=== PATIENT | female | born 1950 | race African-American/Black ===

== ENCOUNTER → 2018-11-24 | Outpatient (CLI) | payer MEDICARE ==
--- NOTE | 2018-11-24 14:05 | US ---
EXAMINATION TYPE: US venous doppler duplex LE DATE OF EXAM: 11/24/2018 1:43 PM COMPARISON: NONE CLINICAL HISTORY: Bilateral Edema R60.0. Bilateral ankle swelling x many years per patient. SIDE PERFORMED: Bilateral TECHNIQUE: The lower extremity deep venous system is examined utilizing real time linear array sonog rigoberto with graded compression, doppler sonography and color-flow sonography. VESSELS IMAGED: Common Femoral Vein Deep Femoral Vein Greater Saphenous Vein * Femoral Vein Popliteal Vein Small Saphenous Vein * Proximal Calf Veins (* superficial vessels) Grayscale, color doppler, spectral doppler imaging performed of the deep veins of the lower extremiti es. There is normal flow, compressibility, vascular waveforms. Us exam is technically limited by large body habitus at greater than 250lbs and HT 5'4". Right Leg: Negative for DVT as technologist was able to visualize vessels Left Leg: Negative for DVT as technologist was able to visualize vessels Edema channels are noted at bilateral popliteal fossa level and ankle level. IMPRESSION: Limited examination secondary to lower extremity edema and patient body habitus. No gross evidence of deep venous thrombosis within the visualized lower extremities.
== END | disposition home or self-care (01) ==
LOC: RADUSWWP 12:07
PROVIDERS: ATTEND Family Medicine
DX: R60.0 Localized edema (principal)
CPT/HCPCS: 93970

== ENCOUNTER → 2020-01-11 | Outpatient (CLI) | payer MEDICARE ==
--- NOTE | 2020-01-11 17:11 | MR ---
EXAMINATION TYPE: MR brain wo/w con DATE OF EXAM: 01/11/2020 COMPARISON: None HISTORY: Tremors, weakness, memory loss TECHNIQUE: Multiplanar, multisequence images of the brain and brainstem is performed without and with IV contras t, utilizing 9.5 mL intravenous Gadavist . FINDINGS: Diffusion weighted images demonstrate no evidence of a recent infarct or other diffusion abnormality. Moderate nonspecific periventricular and subcortical white matter T2 FLAIR hyperintense foci, which demonstrate no evidence of restricted diffusion or postcontrast enhancement. Mild diffuse volume loss. The ventricular system and cisternal spaces are normal in size and appearan ce. There is no extra-axial fluid collection. Midline structures demonstrate normal morphology. The craniocervical junction appears within normal limits. Post contrast images demonstrate no abnormal enhancement. The dural venous sinuses appear pa tent. The visualized sinuses are clear and the globes are grossly symmetric. IMPRESSION: 1. Mild diffuse volume loss. 2. Moderate nonspecific T2 FLAIR hyperintense foci, likely represent sequela of chronic small vessel disease.
== END | disposition home or self-care (01) ==
LOC: RADMRIMAIN 09:08
PROVIDERS: ATTEND Family Medicine
DX: G93.89 Other specified disorders of brain (principal)
CPT/HCPCS: 70553; A9585

== ENCOUNTER 2021-07-12 01:32 | Inpatient (IN) | payer MEDICARE, OTHER ==
[2021-07-12] MEDS ORDERED: SODIUM CHLORIDE 0.9% 1,000 ML IV STA (01:40)
[2021-07-12] MEDS ORDERED: MORPHINE SULFATE 4 MG/ML SYRINGE IV STA ×2 (01:41→04:58)
[2021-07-12] MEDS ORDERED: ONDANSETRON 4 MG/2 ML VIAL IVP STA (01:41)
[2021-07-12] MEDS ORDERED: hydrALAZINE HCL 20 MG/ML 1 ML VIAL IVP STA (02:25)
[2021-07-12 02:26] LABS: Basophils # (A) 0.1 k/uL (0-0.2); Basophils % (A) 1 %; Eosinophils # (A) 0.2 k/uL (0-0.7); Eosinophils % (A) 1 %; HGB 13.3 gm/dL (11.4-16.0); Lymphocytes # (A) 0.7 k/uL (1.0-4.8); Lymphocytes % (A) 6 %; MCH 29.6 pg (25.0-35.0); MCHC 30.9 g/dL (31.0-37.0); MCV 95.5 fL (80.0-100.0); Mean Platelet Volume 9.1; Monocytes # (A) 0.5 k/uL (0-1.0); Monocytes % (A) 4 %; Neutrophils # (A) 10.8 k/uL (1.3-7.7); Neutrophils % (A) 88 %; Platelet Count 226 k/uL (150-450); RDW 13.4 % (11.5-15.5); WBC 12.3 k/uL (3.8-10.6)
[2021-07-12] MEDS ORDERED: DILTIAZEM 5 MG/ML 5 ML VIAL IVP STA (02:33)
[2021-07-12] MEDS ORDERED: HEPARIN SODIUM 1,000 UN/ML (10ML VL) IV PRN (02:34)
[2021-07-12] MEDS ORDERED: HEPARIN SODIUM 1,000 UN/ML (10ML VL) IV ONE (02:34)
--- NOTE | 2021-07-12 02:35 | ED ---
Abdominal Pain HPI - General Chief Complaint: Abdominal Pain Stated Complaint: Abd Pain Time Seen by Provider: 07/12/21 01:33 Source: EMS, RN notes reviewed Mode of arrival: EMS - History of Present Illness Initial Comments: This is a pleasant 70-year-old female with history of hypertension who states that she developed rather severe abdominal pain about 6 hours prior to arrival. She states this was across her upper abdomen. She states it was sharp in nature, constant, no alleviating or exacerbating factors. Patient states that she skipped dinner prior to onset of this pain because she didn't feel like eating. She denies any chest pain or shortness of breath. This does not radiate. She has never had any symptoms such as this previously. No headache, no fever or chills, no changes in vision or hearing, no sore throat or difficulty with speech, no neck pain, no chest pain or shortness of breath, no nausea or vomiting, no changes in urination or bowel movements, no numbness or tingling, no extremity pain, no skin rashes or lesions. MD Complaint: abdominal pain - Related Data Home Medications Medication Instructions Recorded Confirmed Acetaminophen Tab [Tylenol] 650 mg PO BID@0800,169907/12/21 07/12/21 Acetaminophen [Tylenol 8 Hour] 650 mg PO Q4H PRN 07/12/21 07/12/21 Acetaminophen-Codeine 300-30mg 1 tab PO Q12H PRN 07/12/21 07/12/21 [Tylenol w/codeine #3] Aspirin 325 mg PO DAILY@169907/12/21 07/12/21 Cyanocobalamin [Vitamin B-12] 500 mcg PO DAILY@169907/12/21 07/12/21 Diclofenac Sodium Gel [Voltaren 2 gm TOPICAL QID 07/12/21 07/12/21 Gel] Ergocalciferol [Vitamin D2 (1250 1,250 mcg PO CHICAS@169907/12/21 07/12/21 Mcg = 88193 Iu)] Folic Acid 1 mg PO DAILY@169907/12/21 07/12/21 Furosemide [Lasix] 60 mg PO DAILY@169907/12/21 07/12/21 Magnesium Hydroxide [Milk of 7,200 mg PO DAILY PRN 07/12/21 07/12/21 Magnesia Concentrate] Memantine [Namenda] 10 mg PO BID@0800,1700 07/12/21 07/12/21 Metoprolol Tartrate [Lopressor] 25 mg PO BID@0800,1700 07/12/21 07/12/21 Na Phos,M-B/Na Phos,Di-Ba [Fleet 133 ml RECTAL DAILY PRN 07/12/21 07/12/21 Adult] Potassium Chloride [Klor-Con 10 ER] 10 meq PO DAILY@0800 07/12/21 07/12/21 Pravastatin Sodium [Pravachol] 20 mg PO HS@2100 07/12/21 07/12/21 Ubidecarenone [Co Q-10] 100 mg PO DAILY@1700 07/12/21 07/12/21 bisacodyL [Dulcolax] 10 mg RECTAL DAILY PRN 07/12/21 07/12/21 Allergies Allergy/AdvReac Type Severity Reaction Status Date / Time doxycycline [From Vibramycin] Allergy Unknown Verified 07/12/21 06:25 niacin Allergy Unknown Verified 07/12/21 06:25 simvastatin [From Zocor] Allergy Unknown Verified 07/12/21 06:25 Review of Systems ROS Statement: Those systems with pertinent positive or pertinent negative responses have been documented in the HPI. ROS Other: All systems not noted in ROS Statement are negative. Past Medical History Past Medical History: COPD, Hyperlipidemia, Hypertension History of Any Multi-Drug Resistant Organisms: None Reported Past Surgical History: Hysterectomy Past Psychological History: No Psychological Hx Reported Smoking Status: Former smoker Past Alcohol Use History: None Reported Past Drug Use History: None Reported - Past Family History Mother History Unknown: Yes Additional Family Medical History / Comment(s): Pt was adopted. Father History Unknown: Yes Additional Family Medical History / Comment(s): Pt was adopted. General Exam - General Exam Comments Initial Comments: Obese 70-year-old female in no specific distress at the time I'm seeing her. Vital signs reviewed. Patient appears to be adequately hydrated. Cranial nerves II through XII grossly intact. Does not appear to be ill or toxic. General appearance: alert, in distress Head exam: Present: atraumatic, normocephalic, normal inspection Eye exam: Present: normal appearance, PERRL, EOMI. Absent: scleral icterus, conjunctival injection, periorbital swelling ENT exam: Present: normal exam, normal oropharynx, mucous membranes moist Neck exam: Present: normal inspection. Absent: tenderness, meningismus, lymphadenopathy Respiratory exam: Present: normal lung sounds bilaterally. Absent: respiratory distress, wheezes, rales, rhonchi, stridor Cardiovascular Exam: Present: regular rate, normal rhythm, normal heart sounds. Absent: systolic murmur, diastolic murmur, rubs, gallop, clicks GI/Abdominal exam: Present: soft, tenderness (Epigastrium), guarding (Involuntary), normal bowel sounds, other (Patient has tenderness to palpation epigastrium. No specific tenderness elsewhere. No pulsatile mass). Absent: distended, rebound, rigid, diminished bowel sounds, hyperactive bowel sounds, hypoactive bowel sounds, organomegaly, mass, bruit, pulsatile mass, hernia Extremities exam: Present: normal inspection, full ROM, normal capillary refill. Absent: tenderness, pedal edema, joint swelling, calf tenderness Back exam: Present: normal inspection Neurological exam: Present: alert, oriented X3, CN II-XII intact Psychiatric exam: Present: normal affect, normal mood Skin exam: Present: warm, dry, intact, normal color. Absent: rash Course Vital Signs 07/12/21 07/12/21 07/12/21 01:45 03:24 04:36 Temperature 98.3 F Pulse Rate 61 88 86 Respiratory 18 18 16 Rate Blood Pressure 215/95 194/103 205/106 O2 Sat by Pulse 98 98 98 Oximetry 07/12/21 07/12/21 07/12/21 06:08 06:48 10:08 Temperature Pulse Rate 77 104 H 88 Respiratory 18 16 Rate Blood Pressure 203/102 171/99 173/98 O2 Sat by Pulse 98 98 97 Oximetry 07/12/21 07/12/21 11:32 18:31 Temperature Pulse Rate 92 112 H Respiratory 20 16 Rate Blood Pressure 178/106 122/71 O2 Sat by Pulse 95 92 L Oximetry - Reevaluation(s) Reevaluation #1: 07/12/21 02:43 Patient found to have uncontrolled hypertension, new onset atrial fibrillation. Labetalol ordered. We'll plan on reevaluation. Patient's pain is improving. No chest pain. Again, tenderness in the epigastrium. Medical Decision Making - Medical Decision Making Computed tomography scan of chest and pelvis shows good arterial flow. Does show dilated loops of bowel consistent with a ileus or mechanical bowel obstruction. However the patient is not having any vomiting. Lactic acid did come back at 3.5. We'll order a repeat. Patient has had a 1 L fluid bolus. Patient's blood pressure down to 195/103 after labetalol. We'll repeat. Patient also found to have new onset atrial fibrillation. The case was discussed in detail with ED attending physician. Presentation, findings, treatment plan discussed in detail. Given the patient's workup findings, patient has atrial fibrillation which is new onset by history. However I'm unsure when this actually started. Will start heparin. Patient also has an ileus or dilated bowel loop in the lower abdomen. However has no vomiting or nausea. There was no evidence of poor arterial flow on CT abdomen and pelvis. Patient's lactate was 3.5. Note that the patient did skip tear because she states she felt like not eating. Certainly this could be related to hydration status. We'll repeat. Patient does not appear to have pathology consistent with infectious process or sepsis. Case endorsed to Dr. Goyal at 3:40 AM for further evaluation and disposition. Currently awaiting urinalysis. - Lab Data Result diagrams: 07/12/21 02:13 07/12/21 02:13 Lab Results 07/12/21 07/12/21 07/12/21 Range/Units 02:13 02:13 02:13 WBC 12.3 H (3.8-10.6) k/uL RBC 4.50 (3.80-5.40) m/uL Hgb 13.3 (11.4-16.0) gm/dL Hct 43.0 (34.0-46.0) % MCV 95.5 (80.0-100.0) fL MCH 29.6 (25.0-35.0) pg MCHC 30.9 L (31.0-37.0) g/dL RDW 13.4 (11.5-15.5) % Plt Count 226 (150-450) k/uL MPV 9.1 Neutrophils % 88 % Lymphocytes % 6 % Monocytes % 4 % Eosinophils % 1 % Basophils % 1 % Neutrophils # 10.8 H (1.3-7.7) k/uL Lymphocytes # 0.7 L (1.0-4.8) k/uL Monocytes # 0.5 (0-1.0) k/uL Eosinophils # 0.2 (0-0.7) k/uL Basophils # 0.1 (0-0.2) k/uL PT (9.0-12.0) sec INR (<1.2) APTT (22.0-30.0) sec Sodium 136 L (137-145) mmol/L Potassium 4.4 (3.5-5.1) mmol/L Chloride 96 L (98-107) mmol/L Carbon Dioxide 30 (22-30) mmol/L Anion Gap 10 mmol/L BUN 14 (7-17) mg/dL Creatinine 0.80 (0.52-1.04) mg/dL Est GFR (CKD-EPI)AfAm 87 (>60 ml/min/1.73 sqM) Est GFR (CKD-EPI)NonAf 75 (>60 ml/min/1.73 sqM) Glucose 179 H (74-99) mg/dL Lactic Ac Sepsis Rflx Plasma Lactic Acid John (0.7-2.0) mmol/L Calcium 9.5 (8.4-10.2) mg/dL Total Bilirubin 1.2 (0.2-1.3) mg/dL AST 32 (14-36) U/L ALT 16 (4-34) U/L Alkaline Phosphatase 127 H (38-126) U/L Troponin I 0.015 (0.000-0.034) ng/mL Total Protein 8.7 H (6.3-8.2) g/dL Albumin 4.7 (3.5-5.0) g/dL Amylase 58 (30-110) U/L Lipase 65 (23-300) U/L Urine Color Urine Appearance (Clear) Urine pH (5.0-8.0) Ur Specific [place] (1.001-1.035) Urine Protein (Negative) Urine Glucose (UA) (Negative) Urine Ketones (Negative) Urine Blood (Negative) Urine Nitrite (Negative) Urine Bilirubin (Negative) Urine Urobilinogen (<2.0) mg/dL Ur Leukocyte Esterase (Negative) Urine RBC (0-5) /hpf Urine WBC (0-5) /hpf Ur Squamous Epith Cells (0-4) /hpf Urine Mucus (None) /hpf 0407/12/21 07/12/21 Range/Units 02:13 02:38 02:50 WBC (3.8-10.6) k/uL RBC (3.80-5.40) m/uL Hgb (11.4-16.0) gm/dL Hct (34.0-46.0) % MCV (80.0-100.0) fL MCH (25.0-35.0) pg MCHC (31.0-37.0) g/dL RDW (11.5-15.5) % Plt Count (150-450) k/uL MPV Neutrophils % % Lymphocytes % % Monocytes % % Eosinophils % % Basophils % % Neutrophils # (1.3-7.7) k/uL Lymphocytes # (1.0-4.8) k/uL Monocytes # (0-1.0) k/uL Eosinophils # (0-0.7) k/uL Basophils # (0-0.2) k/uL PT 10.6 (9.0-12.0) sec INR 1.0 (<1.2) APTT 23.5 (22.0-30.0) sec Sodium (137-145) mmol/L Potassium (3.5-5.1) mmol/L Chloride (98-107) mmol/L Carbon Dioxide (22-30) mmol/L Anion Gap mmol/L BUN (7-17) mg/dL Creatinine (0.52-1.04) mg/dL Est GFR (CKD-EPI)AfAm (>60 ml/min/1.73 sqM) Est GFR (CKD-EPI)NonAf (>60 ml/min/1.73 sqM) Glucose (74-99) mg/dL Lactic Ac Sepsis Rflx Plasma Lactic Acid John 3.3 H* (0.7-2.0) mmol/L Calcium (8.4-10.2) mg/dL Total Bilirubin (0.2-1.3) mg/dL AST (14-36) U/L ALT (4-34) U/L Alkaline Phosphatase (38-126) U/L Troponin I (0.000-0.034) ng/mL Total Protein (6.3-8.2) g/dL Albumin (3.5-5.0) g/dL Amylase (30-110) U/L Lipase (23-300) U/L Urine Color Light Yellow Urine Appearance Clear (Clear) Urine pH 7.5 (5.0-8.0) Ur Specific [place] 1.008 (1.001-1.035) Urine Protein 1+ H (Negative) Urine Glucose (UA) Trace H (Negative) Urine Ketones Negative (Negative) Urine Blood Trace H (Negative) Urine Nitrite Negative (Negative) Urine Bilirubin Negative (Negative) Urine Urobilinogen <2.0 (<2.0) mg/dL Ur Leukocyte Esterase Negative (Negative) Urine RBC 9 H (0-5) /hpf Urine WBC <1 (0-5) /hpf Ur Squamous Epith Cells <1 (0-4) /hpf Urine Mucus Rare H (None) /hpf 07/12/21 Range/Units 03:29 WBC (3.8-10.6) k/uL RBC (3.80-5.40) m/uL Hgb (11.4-16.0) gm/dL Hct (34.0-46.0) % MCV (80.0-100.0) fL MCH (25.0-35.0) pg MCHC (31.0-37.0) g/dL RDW (11.5-15.5) % Plt Count (150-450) k/uL MPV Neutrophils % % Lymphocytes % % Monocytes % % Eosinophils % % Basophils % % Neutrophils # (1.3-7.7) k/uL Lymphocytes # (1.0-4.8) k/uL Monocytes # (0-1.0) k/uL Eosinophils # (0-0.7) k/uL Basophils # (0-0.2) k/uL PT (9.0-12.0) sec INR (<1.2) APTT (22.0-30.0) sec Sodium (137-145) mmol/L Potassium (3.5-5.1) mmol/L Chloride (98-107) mmol/L Carbon Dioxide (22-30) mmol/L Anion Gap mmol/L BUN (7-17) mg/dL Creatinine (0.52-1.04) mg/dL Est GFR (CKD-EPI)AfAm (>60 ml/min/1.73 sqM) Est GFR (CKD-EPI)NonAf (>60 ml/min/1.73 sqM) Glucose (74-99) mg/dL Lactic Ac Sepsis Rflx Y Plasma Lactic Acid John (0.7-2.0) mmol/L Calcium (8.4-10.2) mg/dL Total Bilirubin (0.2-1.3) mg/dL AST (14-36) U/L ALT (4-34) U/L Alkaline Phosphatase (38-126) U/L Troponin I (0.000-0.034) ng/mL Total Protein (6.3-8.2) g/dL Albumin (3.5-5.0) g/dL Amylase (30-110) U/L Lipase (23-300) U/L Urine Color Urine Appearance (Clear) Urine pH (5.0-8.0) Ur Specific [place] (1.001-1.035) Urine Protein (Negative) Urine Glucose (UA) (Negative) Urine Ketones (Negative) Urine Blood (Negative) Urine Nitrite (Negative) Urine Bilirubin (Negative) Urine Urobilinogen (<2.0) mg/dL Ur Leukocyte Esterase (Negative) Urine RBC (0-5) /hpf Urine WBC (0-5) /hpf Ur Squamous Epith Cells (0-4) /hpf Urine Mucus (None) /hpf - EKG Data -: EKG Interpreted by Me (As well as ED attending physician) EKG Comments: EKG reveals atrial fibrillation with ventricular rate of 89. No evidence of significant ST elevation or ST depression. Normal axis. Normal QRS morphology. MS interval is indiscernible. Normal intervals otherwise. Disposition Clinical Impression: Atrial fibrillation, new onset, Abdominal pain, Ileus, Hypertensive urgency Disposition: ADMITTED IP TO THIS [facility] Time of Disposition: 03:35 Decision to Admit Reason: Admit from EC Decision Time: 03:36
[2021-07-12 02:36] LABS: Albumin 4.7 g/dL (3.5-5.0); Calcium 9.5 mg/dL (8.4-10.2); Total Bilirubin 1.2 mg/dL (0.2-1.3); Total Protein 8.7 g/dL (6.3-8.2)
[2021-07-12 02:38] LABS: Partial Thromboplastin Time 23.5 sec (22.0-30.0); Prothrombin Time 10.6 sec (9.0-12.0)
[2021-07-12 02:40] LABS: Potassium 4.4 mmol/L (3.5-5.1)
[2021-07-12] MEDS ORDERED: LABETALOL 5 MG/ML VIAL MDV IVP STA ×2 (02:40→04:45)
[2021-07-12] MEDS ORDERED: DILTIAZEM 125 MG in SODIUM CHLORIDE 0.9% 100 ML IV SCH (02:45)
[2021-07-12 03:01] LABS: Appearance,Urine Clear (Clear); Bilirubin,Urine Negative (Negative); Blood,Urine Trace (Negative); Color,Urine Light Yellow; Glucose,Urine (UA) Trace (Negative); Ketones,Urine Negative (Negative); Leukocyte Esterase,Urine Negative (Negative); Mucus,Urine Rare /hpf; Nitrite,Urine Negative (Negative); PH, Urine 7.5 (5.0-8.0); Protein,Urine 1+ (Negative); RBC,Urine 9 /hpf (0-5); Specific Gravity,Urine 1.008 (1.001-1.035); Squamous Epithelial Cell,Urine <1 /hpf (0-4); Urobilinogen,Urine <2.0 mg/dL (<2.0); WBC,Urine <1 /hpf (0-5)
--- NOTE | 2021-07-12 03:06 | XR ---
EXAMINATION TYPE: XR abdomen acute w cxr DATE OF EXAM: 07/12/2021 COMPARISON: September 30, 2009 HISTORY: Abdominal pain TECHNIQUE: 4 views FINDINGS: There is no heart failure nor confluent pneumonic infiltrate. Bowel gas pattern is fairly n ormal. No sign of intestinal obstruction or pneumoperitoneum. Fecal pattern is normal. There is no ev idence of a mass. Heart size is normal. No hilar mass. There is some small linear density left lung b ase. IMPRESSION: Minimal atelectasis at the left lung base appears new compared to old exam. Nonacute abdo men.
--- NOTE | 2021-07-12 03:26 | CT ---
EXAMINATION TYPE: CT angio thor/abd pel aorta DATE OF EXAM: 07/12/2021 COMPARISON: None HISTORY: sudden onset of epigastric pain. CT DLP: 1716.6 mGycm Automated exposure control for dose reduction was used. CONTRAST: Performed with IV Contrast, patient injected with 100 mL of Isovue 370. Images obtained from the thoracic inlet to the floor the pelvis without and with IV contrast. There i s 3-D post processed images. The lungs are clear of consolidation. There is some mild subsegmental atelectasis in the lower lung f ields. Heart is enlarged. Thoracic aorta is intact. No dissection. The ascending aorta measures 3.7 c m. No aneurysm. There is no evidence of filling defect in the pulmonary arteries. There is no pleural effusion. No pericardial effusion. Liver spleen and stomach pancreas appear intact. Gallbladder appears intact. The bile ducts are not d ilated. There is probably a cholesterol 1 cm gallstone. There is no adrenal mass. Kidneys show satisfactory contrast opacification. There is no hydronephrosi s. Ureters are not dilated. There is arterial flow in the abdominal aorta. There is arterial flow in the celiac artery and superi or mesenteric artery. No stenosis. There is arterial flow in the renal arteries. There is arterial fl ow in the iliac arteries. No evidence of stenosis. No arterial aneurysm or dissection. Minimal athero matous changes are seen. There is a dilated fluid-filled loop of small bowel in the pelvis that measures up to almost 4 cm. Th e terminal ileum is not dilated. There is L1 compression fracture with 50% anterior wedging. IMPRESSION: No evidence of pulmonary embolism. No evidence of arterial aneurysm or dissection. No evidence of hem odynamic stenosis. Moderately dilated fluid-filled loop of small bowel in the pelvis. This could relate to mechanical reentta wel obstruction or severe localized ileus. Follow-up is recommended. Dilation appears new compared to old exam. There is some mild atelectasis in the lower lung jones.
[2021-07-12] MEDS: HEPARIN SOD,PORK IN 0.45% NACL 25,000 UNIT in 0.45% NACL 1 250ML.BAG IV SCH (04:14)
[2021-07-12] MEDS: SODIUM CHLORIDE 0.9% 1,000 ML IV SCH ×3 (05:26→23:23)
[2021-07-12] MEDS ORDERED: HYDROmorphone 1 MG/ML 1 ML SYRINGE IVP STA (06:10)
[2021-07-12] MEDS ORDERED: ENALAPRILAT 1.25 MG/ML 1 ML VIAL IVP STA (06:13)
[2021-07-12] MEDS ORDERED: ONDANSETRON 4 MG/2 ML VIAL IVP PRN (06:13)
[2021-07-12] MEDS ORDERED: NALOXONE 0.4 MG/ML 1 ML VIAL IV PRN (06:13)
[2021-07-12] MEDS: METOPROLOL TARTRATE 25 MG TAB PO SCH ×2 (07:02→23:12)
[2021-07-12] MEDS ORDERED: IOPAMIDOL CONTRAST (ORAL USE) VIAL PO PRN (07:55)
[2021-07-12] MEDS: LOSARTAN 50 MG TAB PO SCH (08:55)
[2021-07-12] MEDS: amLODIPine 5 MG TAB PO SCH ×2 (08:55→23:11)
[2021-07-12] MEDS ORDERED: PANTOPRAZOLE 40 MG/10 ML VIAL IV SCH (09:00)
[2021-07-12] MEDS: HYDROmorphone 1 MG/ML 1 ML SYRINGE IVP PRN ×2 (09:21→23:21)
--- NOTE | 2021-07-12 09:51 | ECHOF ---
Referral Reason: MEASUREMENTS -------- HEIGHT: 162.6 cm WEIGHT: 104.3 kg BP: IVSd: 1.2 cm (0.6 - 1.1) LVIDd: 4.9 cm (3.9 - 5.3) LVPWd: 1.1 cm (0.6 - 1.1) IVSs: 1.4 cm LVIDs: 3.1 cm LVPWs: 1.2 cm Ao Diam: 3.3 cm (2.0 - 3.7) AV Cusp: 2.1 cm (1.5 - 2.6) LA Diam: 2.6 cm (2.7 - 3.8) MV EXCURSION: 17.007 mm (> 18.000) MV EF SLOPE: 78 mm/s (70 - 150) MV E Clint: 0.53 m/s MV DecT: 210 ms MV A Clint: 1.15 m/s MV E/A Ratio: 0.46 RAP: 5.00 mmHg RVSP: 12.42 mmHg FINDINGS -------- This was a technically difficult study with suboptimal views. The left ventricular size is normal. There is mild concentric left ventricular hypertrophy. Overa ll left ventricular systolic function is normal with, an EF between 55 - 60 %. The RV was not well visualized. The left atrial size is normal. The right atrium was not well visualized. xx ml of Lumason was utilized for enhancement of images. The aortic valve was not well visualized. There is trace mitral regurgitation. The tricuspid valve appears structurally normal. Trace tricuspid regurgitation present. Right divine tricular systolic pressure is normal at < 35 mmHg. There is no pulmonic regurgitation present. The aortic root size is normal. IVC Not well visulized. CONCLUSIONS -------- 1. The left ventricular size is normal. 2. There is mild concentric left ventricular hypertrophy. 3. Overall left ventricular systolic function is normal with, an EF between 55 - 60 %. 4. There is trace mitral regurgitation. 5. Trace tricuspid regurgitation present. GUEST SERVICES: Mariah Villanueva, [facility]
--- NOTE | 2021-07-12 11:20 | P.CRDCN ---
History of Present Illness History of present illness: This is 70 year old female with a past medical history of dementia, COPD, hypertension, dyslipidemia, chronic LE edema, former smoker. She does not follow with solution coordinator. No known history of cardiac disease. We are consulted for atrial fibrillation. She was brought to the ER from [facility] for worsening upper abdominal pain. Patient is alert and oriented to person. She states she is at [facility] and states its the year 2020. She is unable to describe why she was brought to the hospital. But she does complain of abdominal pain and has tenderness to palpation to the upper abdomen. States her abdomen pain is sharp. Patient with no known history of cardiac disease, atrial fibrillation, stroke, OK, or CAD. On admission, an EKG was performed and patient was found to be in atrial fibrillation with controlled ventricular rates. She was also found to be hypertensive with BP 215/95. She was given a total of 1.25mg IV Vasotec, 40mg IV Labetolol, IV morphine, IV Zofran and IV dilaudid. She did convert to sinus mechanism DIAGNOSTICS * EKG reveals atrial fibrillation, heart rate 89. * Repeat EKG revealed sinus rhythm, heart rate 83, early repolarization in inferior lateral leads, poor R wave progression, LVH * Telemetry tracings indicate sinus mechanism heart rates in the 60s80s. * Thoracic CT revealed no evidence of pulmonary embolism, no evidence of acute aneurysm or dissection. No evidence of hemodynamic stenosis. Moderate dilated fluid-filled loop of small bowel in the pelvis, could relate to mechanical bowel obstruction versus severe ileus. * echocardiogram revealed EF 5560 percent, mild concentric LVH * Laboratory reviewed,troponin negative, lactate 3.3, repeat 4.7, WBC 12.3, hemoglobin 13.3, platelets 226, sodium 136, potassium 4.4, BUN 14, serum creatinine 0.8 * Current home cardiac medications include prednisone 20 mg nightly, Lasix 60 mg daily, aspirin 325 mg daily, metoprolol titrate 25 mg twice a day REVIEW OF SYSTEMS At the time of my exam: CONSTITUTIONAL: Denies fever or chills. CARDIOVASCULAR: Denies chest pain, shortness of breath, orthopnea, PND or pa lpitations. RESPIRATORY: Denies cough. GASTROINTESTINAL: Denies abdominal pain, diarrhea, constipation, nausea or vomiting. MUSCULOSKELETAL: Denies myalgias. NEUROLOGIC: Denies numbness, tingling, headacbe or weakness. ENDOCRINE: Denies fatigue, weight change, polydipsia or polyurina. GENITOURINARY: Denies burning, hematuria or urgency with micturation. HEMATOLOGIC: Denies history of anemia or bleeding. PHYSICAL EXAMINATION Blood pressure 171/99, heart rate 80s, afebrile, saturation is 98% on room air CONSTITUTIONAL: No apparent distress. HEENT: Head is normocephalic. Pupils are equal, round. Sclerae anicteric. Mucous membranes of the mouth are moist. No JVD. No carotid bruit. CHEST EXAMINATION: Lungs are clear to auscultation. No chest wall tenderness is noted on palpation or with deep breathing. HEART EXAMINATION: Regular rate and rhythm. S1, S2 heard. No murmurs, gallops or rub. ABDOMEN: Distended. Tender to palpation to upper and lower left and right quadrants Positive bowel sounds. EXTREMITIES: 2+ peripheral pulses, Moderate chronic lower extremity edema with skin coloration changes NEUROLOGIC EXAMINATION: Patient is awake, alert and oriented x3. ASSESSMENT Paroxysmal atrial fibrillation, [id number] score 3 Abdominal pain, concerning for mechanical bowel obstructive vs ileus see on CT Hypertensive Urgency Dementia Dyslipidemia Chronic lower extremity edema PLAN Patient will require long-term anticoagulation. We will continue IV heparin drip until evaluation by surgery Start amlodipine 5 mg twice a day Start losartan 50 mg daily Continue metoprolol tartrate 25mg BID Further recommendations based on clinical course Nurse practitioner note has been reviewed by physician. Signing provider agrees with the documented findings, assessment, and plan of care. Past Medical History Past Medical History: COPD, Hyperlipidemia, Hypertension History of Any Multi-Drug Resistant Organisms: None Reported Past Surgical History: Hysterectomy Past Psychological History: No Psychological Hx Reported Smoking Status: Former smoker Past Alcohol Use History: None Reported Past Drug Use History: None Reported Medications and Allergies Home Medications Medication Instructions Recorded Confirmed Type Acetaminophen Tab [Tylenol] 650 mg PO BID@0800,1700 07/12/21 07/12/21 History Acetaminophen [Tylenol 8 Hour] 650 mg PO Q4H PRN 07/12/21 07/12/21 History Acetaminophen-Codeine 300-30mg 1 tab PO Q12H PRN 07/12/21 07/12/21 History [Tylenol w/codeine #3] Aspirin 325 mg PO DAILY@1700 07/12/21 07/12/21 History Cyanocobalamin [Vitamin B-12] 500 mcg PO DAILY@1700 07/12/21 07/12/21 History Diclofenac Sodium Gel [Voltaren 2 gm TOPICAL QID 07/12/21 07/12/21 History Gel] Ergocalciferol [Vitamin D2 (1250 1,250 mcg PO CHICAS@17007/12/21 07/12/21 History Mcg = 56701 Iu)] Folic Acid 1 mg PO DAILY@0 07/12/21 07/12/21 History Furosemide [Lasix] 60 mg PO DAILY@169907/12/21 07/12/21 History Magnesium Hydroxide [Milk of 7,200 mg PO DAILY PRN 07/12/21 07/12/21 History Magnesia Concentrate] Memantine [Namenda] 10 mg PO BID@0800,169907/12/21 07/12/21 History Metoprolol Tartrate [Lopressor] 25 mg PO BID@0800,1700 07/12/21 07/12/21 History Na Phos,M-B/Na Phos,Di-Ba [Fleet 133 ml RECTAL DAILY PRN 07/12/21 07/12/21 History Adult] Potassium Chloride [Klor-Con 10 ER] 10 meq PO DAILY@0800 07/12/21 07/12/21 History Pravastatin Sodium [Pravachol] 20 mg PO HS@2100 07/12/21 07/12/21 History Ubidecarenone [Co Q-10] 100 mg PO DAILY@1700 07/12/21 07/12/21 History bisacodyL [Dulcolax] 10 mg RECTAL DAILY PRN 07/12/21 07/12/21 History Allergies Allergy/AdvReac Type Severity Reaction Status Date / Time doxycycline [From Vibramycin] Allergy Unknown Verified 07/12/21 06:25 niacin Allergy Unknown Verified 07/12/21 06:25 simvastatin [From Zocor] Allergy Unknown Verified 07/12/21 06:25 Physical Exam Vitals: Vital Signs Temp Pulse Resp BP Pulse Ox 07/12/21 06:48 104 H 171/99 98 07/12/21 06:08 77 18 203/102 98 07/12/21 04:36 86 16 205/106 98 07/12/21 03:24 88 18 194/103 98 07/12/21 01:45 98.3 F 61 18 215/95 98 Intake and Output 07/11/21 07/12/21 07/12/21 22:59 06:59 14:59 Other: Weight 104.326 kg Results 07/12/21 02:13 07/12/21 02:13 Cardiac Enzymes 07/12/21 07/12/21 Range/Units 02:13 02:13 AST 32 (14-36) U/L Troponin I 0.015 (0.000-0.034) ng/mL Coagulation 07/12/21 Range/Units 02:13 PT 10.6 (9.0-12.0) sec APTT 23.5 (22.0-30.0) sec CBC 07/12/21 Range/Units 02:13 WBC 12.3 H (3.8-10.6) k/uL RBC 4.50 (3.80-5.40) m/uL Hgb 13.3 (11.4-16.0) gm/dL Hct 43.0 (34.0-46.0) % Plt Count 226 (150-450) k/uL Comprehensive Metabolic Panel 07/12/21 Range/Units 02:13 Sodium 136 L (137-145) mmol/L Potassium 4.4 (3.5-5.1) mmol/L Chloride 96 L (98-107) mmol/L Carbon Dioxide 30 (22-30) mmol/L BUN 14 (7-17) mg/dL Creatinine 0.80 (0.52-1.04) mg/dL Glucose 179 H (74-99) mg/dL Calcium 9.5 (8.4-10.2) mg/dL AST 32 (14-36) U/L ALT 16 (4-34) U/L Alkaline Phosphatase 127 H (38-126) U/L Total Protein 8.7 H (6.3-8.2) g/dL Albumin 4.7 (3.5-5.0) g/dL Current Medications Generic Name Dose Route Start Last Admin Trade Name Freq PRN Reason Stop Dose Admin Heparin Sodium (Porcine) 0 unit 07/12/21 02:34 Heparin Sodium 1,000 Un/Ml (10ml Vl) IV PER PROTOCOL PRN Low PTT Protocol Hydromorphone HCl 1 mg 07/12/21 06:13 Hydromorphone 1 Mg/Ml 1 Ml Syringe IVP Q3HR PRN Severe Pain Heparin Sodium/Sodium Chloride 250 mls @ 10.036 mls/hr 07/12/21 02:45 07/12/21 04:14 25,000 unit/ Sodium Chloride IV 9.62 units/kg/hr .Q24H JENI 10.036 mls/hr Administration Protocol 9.62 UNITS/KG/HR Sodium Chloride 1,000 mls @ 130 mls/hr 07/12/21 03:45 07/12/21 05:26 Saline 0.9% IV 130 mls/hr .Q7H42M JENI Administration Metoprolol Tartrate 25 mg 07/12/21 06:30 07/12/21 07:02 Metoprolol Tartrate 25 Mg Tab PO 25 mg Q12H JENI Administration Naloxone HCl 0.2 mg 07/12/21 06:13 Naloxone 0.4 Mg/Ml 1 Ml Vial IV Q2M PRN Opioid Reversal Ondansetron HCl 4 mg 07/12/21 06:13 Ondansetron 4 Mg/2 Ml Vial IVP Q8HR PRN Nausea And Vomiting Pantoprazole Sodium 40 mg 07/12/21 09:00 Pantoprazole 40 Mg/10 Ml Vial IV DAILY JENI Intake and Output 07/11/21 07/12/21 07/12/21 22:59 06:59 14:59 Other: Weight 104.326 kg 07/12/21 02:13 07/12/21 02:13
--- NOTE | 2021-07-12 11:39 | CT ---
EXAMINATION TYPE: CT abdomen pelvis wo con DATE OF EXAM: 07/12/2021 COMPARISON: CT dated 07/12/2021 HISTORY: Bowel obstruction CT DLP: 1418.2 mGycm Automated exposure control for dose reduction was used. TECHNIQUE: Helical acquisition of images was performed from the lung bases through the pelvis. FINDINGS: LUNG BASES: Minimal atelectasis. Cardiomegaly. LIVER/GB: Suboptimally assessed without gross abnormality. PANCREAS: No significant abnormality is seen. SPLEEN: No significant abnormality is seen. ADRENALS: No significant abnormality is seen. KIDNEYS: Contrast excretion is seen bilaterally likely from the recent abdominal enhanced scan. Unrem arkable kidneys otherwise. FREE AIR: No free air is visualized RETROPERITONEAL ADENOPATHY: None visualized REPRODUCTIVE ORGANS: Previous hysterectomy. No gross adnexal mass. URINARY BLADDER: No significant abnormality is seen. PELVIC ADENOPATHY: None visualized. OSSEOUS STRUCTURES: Anterior wedging and compression fracture of L1 vertebral body, likely chronic w ith spinal canal stenosis at that level. BOWEL: Redemonstration of the focally dilated small bowel loops in the lower abdomen measuring up to 3.5 cm with apparent thickened wall, adjacent mesenteric fat stranding, edema and congested mesenter ic vessels with severely reduced caliber of the small bowel proximally and distally, highly suggestiv e of a closed loop obstruction. The small bowel proximally and distally to the dilated loops are norm al in caliber. The underlying etiology could be related to severe focal adhesion, abnormal bowel rota tion or internal hernia. Bowel ischemia cannot be excluded. Recommend urgent surgical consultation. S cattered uncomplicated colonic diverticulosis. No evidence of colonic obstruction. Lipoma is seen at the gastroduodenal junction measuring 14 mm. OTHER: Arterial atherosclerotic calcifications. Free fluid is seen in the pelvis and around the liver . IMPRESSION: PERSISTENT FOCAL DILATATION OF THE SMALL BOWEL LOOPS IN THE LOWER ABDOMEN DETAILED ABOVE WITH FIND INGS HIGHLY SUGGESTIVE OF A CLOSED LOOP OBSTRUCTION. THE UNDERLYING ETIOLOGY COULD BE RELATED TO ADHE SIONS HOWEVER INTERNAL HERNIA OR ABNORMAL BOWEL ROTATION CANNOT BE EXCLUDED. SUSPECTED EARLY BOWEL IS CHEMIA. NO JIGNESH PNEUMATOSIS OR FREE PERITONEAL AIR. RECOMMEND URGENT SURGICAL CONSULTATION. OTHER FI NDINGS DETAILED ABOVE.
[2021-07-12] MEDS ORDERED: LORazepam 0.5 MG TAB PO PRN (12:05)
[2021-07-12] MEDS: MEMANTINE 10 MG TAB PO SCH ×2 (12:33→23:01)
--- NOTE | 2021-07-12 12:36 | P.GSCN ---
History of Present Illness Consult date: 07/12/21 Reason for Consult: Abdominal pain, nausea History of present illness: This is a 70-year-old female who's admitted through the emergency room. Patient's had complaints of abdominal pain and nausea for several days. Patient's poor historian. She is unable to give me any significant medical history. Patient's initial x-rays morning several loops of dilated small bowel. Her CAT scan performed oral contrast is suggestive of a closed loop obstruction with possible bowel ischemia. Patient states she does have significant pain. Past Medical History Past Medical History: COPD, Hyperlipidemia, Hypertension History of Any Multi-Drug Resistant Organisms: None Reported Past Surgical History: Hysterectomy Past Psychological History: No Psychological Hx Reported Smoking Status: Former smoker Past Alcohol Use History: None Reported Past Drug Use History: None Reported Medications and Allergies Home Medications Medication Instructions Recorded Confirmed Type Acetaminophen Tab [Tylenol] 650 mg PO BID@0800,1700 07/12/21 07/12/21 History Acetaminophen [Tylenol 8 Hour] 650 mg PO Q4H PRN 07/12/21 07/12/21 History Acetaminophen-Codeine 300-30mg 1 tab PO Q12H PRN 07/12/21 07/12/21 History [Tylenol w/codeine #3] Aspirin 325 mg PO DAILY@169907/12/21 07/12/21 History Cyanocobalamin [Vitamin B-12] 500 mcg PO DAILY@169907/12/21 07/12/21 History Diclofenac Sodium Gel [Voltaren 2 gm TOPICAL QID 07/12/21 07/12/21 History Gel] Ergocalciferol [Vitamin D2 (1250 1,250 mcg PO CHICAS@169907/12/21 07/12/21 History Mcg = 62563 Iu)] Folic Acid 1 mg PO DAILY@169907/12/21 07/12/21 History Furosemide [Lasix] 60 mg PO DAILY@169907/12/21 07/12/21 History Magnesium Hydroxide [Milk of 7,200 mg PO DAILY PRN 07/12/21 07/12/21 History Magnesia Concentrate] Memantine [Namenda] 10 mg PO BID@0800,1700 07/12/21 07/12/21 History Metoprolol Tartrate [Lopressor] 25 mg PO BID@0800,1700 07/12/21 07/12/21 History Na Phos,M-B/Na Phos,Di-Ba [Fleet 133 ml RECTAL DAILY PRN 07/12/21 07/12/21 History Adult] Potassium Chloride [Klor-Con 10 ER] 10 meq PO DAILY@0800 07/12/21 07/12/21 History Pravastatin Sodium [Pravachol] 20 mg PO HS@2100 07/12/21 07/12/21 History Ubidecarenone [Co Q-10] 100 mg PO DAILY@1700 07/12/21 07/12/21 History bisacodyL [Dulcolax] 10 mg RECTAL DAILY PRN 07/12/21 07/12/21 History Allergies Allergy/AdvReac Type Severity Reaction Status Date / Time doxycycline [From Vibramycin] Allergy Unknown Verified 07/12/21 06:25 niacin Allergy Unknown Verified 07/12/21 06:25 simvastatin [From Zocor] Allergy Unknown Verified 07/12/21 06:25 Surgical - Exam Vital Signs Temp Pulse Resp BP Pulse Ox 98.3 F 61 18 215/95 98 07/12/21 01:45 07/12/21 01:45 07/12/21 01:45 07/12/21 01:45 07/12/21 01:45 - General moderate pain, obese - Eyes PERRL - ENT normal pinna - Neck no masses - Respiratory normal expansion - Cardiovascular Rhythm: regular - Abdomen Abdomen is soft. Abdomen is distended. On palpation there is significant tenderness. Results - Labs 07/12/21 02:13 07/12/21 02:13 Abnormal Lab Results - Last 24 Hours (Table) 07/12/21 07/12/21 07/12/21 Range/Units 02:13 02:13 02:38 WBC 12.3 H (3.8-10.6) k/uL MCHC 30.9 L (31.0-37.0) g/dL Neutrophils # 10.8 H (1.3-7.7) k/uL Lymphocytes # 0.7 L (1.0-4.8) k/uL APTT (22.0-30.0) sec Sodium 136 L (137-145) mmol/L Chloride 96 L (98-107) mmol/L Glucose 179 H (74-99) mg/dL Plasma Lactic Acid John 3.3 H* (0.7-2.0) mmol/L Alkaline Phosphatase 127 H (38-126) U/L Total Protein 8.7 H (6.3-8.2) g/dL Urine Protein (Negative) Urine Glucose (UA) (Negative) Urine Blood (Negative) Urine RBC (0-5) /hpf Urine Mucus (None) /hpf 07/12/21 07/12/21 07/12/21 Range/Units 02:50 10:07 10:07 WBC (3.8-10.6) k/uL MCHC (31.0-37.0) g/dL Neutrophils # (1.3-7.7) k/uL Lymphocytes # (1.0-4.8) k/uL APTT 43.9 H (22.0-30.0) sec Sodium (137-145) mmol/L Chloride (98-107) mmol/L Glucose (74-99) mg/dL Plasma Lactic Acid John 4.7 H* (0.7-2.0) mmol/L Alkaline Phosphatase (38-126) U/L Total Protein (6.3-8.2) g/dL Urine Protein 1+ H (Negative) Urine Glucose (UA) Trace H (Negative) Urine Blood Trace H (Negative) Urine RBC 9 H (0-5) /hpf Urine Mucus Rare H (None) /hpf Diabetes panel 07/12/21 Range/Units 02:13 Sodium 136 L (137-145) mmol/L Potassium 4.4 (3.5-5.1) mmol/L Chloride 96 L (98-107) mmol/L Carbon Dioxide 30 (22-30) mmol/L BUN 14 (7-17) mg/dL Creatinine 0.80 (0.52-1.04) mg/dL Glucose 179 H (74-99) mg/dL Calcium 9.5 (8.4-10.2) mg/dL AST 32 (14-36) U/L ALT 16 (4-34) U/L Alkaline Phosphatase 127 H (38-126) U/L Total Protein 8.7 H (6.3-8.2) g/dL Albumin 4.7 (3.5-5.0) g/dL Calcium panel 07/12/21 Range/Units 02:13 Calcium 9.5 (8.4-10.2) mg/dL Albumin 4.7 (3.5-5.0) g/dL Pituitary panel 07/12/21 Range/Units 02:13 Sodium 136 L (137-145) mmol/L Potassium 4.4 (3.5-5.1) mmol/L Chloride 96 L (98-107) mmol/L Carbon Dioxide 30 (22-30) mmol/L BUN 14 (7-17) mg/dL Creatinine 0.80 (0.52-1.04) mg/dL Glucose 179 H (74-99) mg/dL Calcium 9.5 (8.4-10.2) mg/dL Adrenal panel 07/12/21 Range/Units 02:13 Sodium 136 L (137-145) mmol/L Potassium 4.4 (3.5-5.1) mmol/L Chloride 96 L (98-107) mmol/L Carbon Dioxide 30 (22-30) mmol/L BUN 14 (7-17) mg/dL Creatinine 0.80 (0.52-1.04) mg/dL Glucose 179 H (74-99) mg/dL Calcium 9.5 (8.4-10.2) mg/dL Total Bilirubin 1.2 (0.2-1.3) mg/dL AST 32 (14-36) U/L ALT 16 (4-34) U/L Alkaline Phosphatase 127 H (38-126) U/L Total Protein 8.7 H (6.3-8.2) g/dL Albumin 4.7 (3.5-5.0) g/dL Assessment and Plan Assessment: Computed tomography scan shows possible small bowel obstruction with possible closed loop obstruction. Patient is tender. Patient will undergo exploratory laparotomy today.
--- NOTE | 2021-07-12 12:37 | XR ---
EXAMINATION TYPE: XR abdomen 2V DATE OF EXAM: 07/12/2021 COMPARISON: 09/30/2009 HISTORY: Pain TECHNIQUE: One view abdominal series FINDINGS: Bibasilar subsegmental consolidation. Hypertrophic and degenerative change of the spine. Dilated smal l bowel loops are seen and there is contrast within the right renal collecting system. Contrast in th e pelvis likely within the bladder. Osteitis pubis condensans. IMPRESSION: 1. Nonspecific abdomen with multiple of prominent small bowel loops seen in the left abdomen. Could b e on the basis of ileus, enteritis or partial structures. 2. Markedly distended stomach correlate for gastroparesis or gastric outlet obstruction. 3. Bibasilar subsegmental atelectasis or early infiltrate
--- NOTE | 2021-07-12 12:58 | P.HPIM ---
History of Present Illness H&P Date: 07/12/21 Chief Complaint: Abdominal pain This is a 70-year-old patient, follows with Dr. Sullivan at [facility]. Chronic stable medical conditions include COPD, hypertension, hyperlipidemia, dementia. Patient herself is not able to give much of a history except for abdominal pain. As per the EMS report they will call doubt patient had been complaining of abdominal pain. No fever no chills no nausea vomiting was reported. Patient really cannot tell much. She is brought into the ER. Patient denies any fever and chills. Denies any urinary symptoms. Cannot tell me about her bowel pattern. Review of systems: GEN.: Tired EYES: None HEENT: None NECK: None RESPIRATORY: None CARDIOVASCULAR: None GASTROINTESTINAL: As above GENITOURINARY: None MUSCULOSKELETAL: Joint pains LYMPHATICS: None HEMATOLOGICAL: None PSYCHIATRY: Forgetful NEUROLOGICAL: None Past medical history to include: COPD, hypertension, hyperlipidemia, dementia Social history: Resident at [facility]. Ex-smoker. Physical examination: VITAL SIGNS: 98.3, 61, 18, 173/98, 97% room air] GENERAL: BMI 39.5, reclining in bed awake, not in distress. EYES: Pupils equal. Conjunctiva normal. HEENT: External appearance of nose and ears normal, oral cavity grossly normal. NECK: JVD not raised; masses not palpable. HEART: First and second heart sounds are normal; no edema. LUNGS: Respiratory rate normal; decreased breath sounds. ABDOMEN: Soft, upper abdominal tenderness, no guarding rigidity, liver spleen not palpable, no masses palpable. PSYCH: Patient knows her name, knows the year and the month. Not able to give much details about her presentation of the hospital.l. MUSCULOSKELETAL:No Clubbing/cyanosis;muscles-grossly intact. Evidence of OA. NEUROLOGICAL: Cranial nerves grossly intact; no facial asymmetry, sensation grossly intact. Unable to lift her legs off the bed. LYMPHATICS: No lymph nodes palpable in the axilla and neck INVESTIGATIONS, reviewed in the clinical context: White count 12.3 hemoglobin 13.3 platelets 226 sodium 136 potassium 4.4 creatinine 0.8 blood glucose 179 Lactic acid 3.3 then 4.7 total bilirubin 1.2 AST 32 ALT 16 lipase 65 UA:: Leukoesterase negative EKG tracing personally reviewed by me-atrial fibrillation rate 89 Acute abdominal series personally reviewed by me: Check stat x-ray no obvious infiltrate. Dilated bowel appeared to be small 2-D echocardiogram: Mild concentric LVH. EF 50-60% Assessment and plan: -Patient presented with acute abdomen pain starting yesterday. Patient has lactic acidosis. X-ray showing that it looks a small bowel. General surgery consulted. -Major cognitive impairment likely from Alzheimer's dementia -Obesity BMI 39.5 -Primary osteoarthritis multiple joints bilaterally Voltaren gel 2 g topical 4 times a day, Tylenol 3 when necessary -Essential hypertension Lopressor 25 mg twice a day -Hyperlipidemia Pravachol 20 mg daily at bedtime -Persistent atrial fibrillation, duration unknown rate controlled Lopressor 25 mg twice a day Dr. Valencia is taking the patient down for surgery later today. Ideally to hold heparin for at least 6 hours. Because of risk of bleeding. Patient's is moderate to high risk for surgery given her poor exercise tolerance. Patient has no active cardiac symptoms. Given the urgency of surgery per Dr. Valencia patient otherwise stable to proceed for surgery. Telemetry monitoring. IV fluids. Cardiovascular monitoring. Given the complexity and severity of patient's condition expect the patient to be in the hospital at least for 2 overnights. Cardiology also consulted Past Medical History Past Medical History: COPD, Hyperlipidemia, Hypertension History of Any Multi-Drug Resistant Organisms: None Reported Past Surgical History: Hysterectomy Past Psychological History: No Psychological Hx Reported Smoking Status: Former smoker Past Alcohol Use History: None Reported Past Drug Use History: None Reported Medications and Allergies Home Medications Medication Instructions Recorded Confirmed Type Acetaminophen Tab [Tylenol] 650 mg PO BID@0800,1700 07/12/21 07/12/21 History Acetaminophen [Tylenol 8 Hour] 650 mg PO Q4H PRN 07/12/21 07/12/21 History Acetaminophen-Codeine 300-30mg 1 tab PO Q12H PRN 07/12/21 07/12/21 History [Tylenol w/codeine #3] Aspirin 325 mg PO DAILY@169907/12/21 07/12/21 History Cyanocobalamin [Vitamin B-12] 500 mcg PO DAILY@1700 07/12/21 07/12/21 History Diclofenac Sodium Gel [Voltaren 2 gm TOPICAL QID 07/12/21 07/12/21 History Gel] Ergocalciferol [Vitamin D2 (1250 1,250 mcg PO CHICAS@1700 07/12/21 07/12/21 History Mcg = 57769 Iu)] Folic Acid 1 mg PO DAILY@1700 07/12/21 07/12/21 History Furosemide [Lasix] 60 mg PO DAILY@169907/12/21 07/12/21 History Magnesium Hydroxide [Milk of 7,200 mg PO DAILY PRN 07/12/21 07/12/21 History Magnesia Concentrate] Memantine [Namenda] 10 mg PO BID@0800,1700 07/12/21 07/12/21 History Metoprolol Tartrate [Lopressor] 25 mg PO BID@0800,1700 07/12/21 07/12/21 History Na Phos,M-B/Na Phos,Di-Ba [Fleet 133 ml RECTAL DAILY PRN 07/12/21 07/12/21 History Adult] Potassium Chloride [Klor-Con 10 ER] 10 meq PO DAILY@0800 07/12/21 07/12/21 History Pravastatin Sodium [Pravachol] 20 mg PO HS@2100 07/12/21 07/12/21 History Ubidecarenone [Co Q-10] 100 mg PO DAILY@0 07/12/21 07/12/21 History bisacodyL [Dulcolax] 10 mg RECTAL DAILY PRN 07/12/21 07/12/21 History Allergies Allergy/AdvReac Type Severity Reaction Status Date / Time doxycycline [From Vibramycin] Allergy Unknown Verified 07/12/21 06:25 niacin Allergy Unknown Verified 07/12/21 06:25 simvastatin [From Zocor] Allergy Unknown Verified 07/12/21 06:25 Physical Exam Vitals: Vital Signs Temp Pulse Resp BP Pulse Ox 07/12/21 06:48 104 H 171/99 98 07/12/21 06:08 77 18 203/102 98 07/12/21 04:36 86 16 205/106 98 07/12/21 03:24 88 18 194/103 98 07/12/21 01:45 98.3 F 61 18 215/95 98 Intake and Output 07/11/21 07/12/21 07/12/21 22:59 06:59 14:59 Other: Weight 104.326 kg Results CBC & Chem 7: 07/12/21 02:13 07/12/21 02:13 Labs: Abnormal Lab Results - Last 24 Hours (Table) 07/12/21 07/12/21 07/12/21 Range/Units 02:13 02:13 02:38 WBC 12.3 H (3.8-10.6) k/uL MCHC 30.9 L (31.0-37.0) g/dL Neutrophils # 10.8 H (1.3-7.7) k/uL Lymphocytes # 0.7 L (1.0-4.8) k/uL Sodium 136 L (137-145) mmol/L Chloride 96 L (98-107) mmol/L Glucose 179 H (74-99) mg/dL Plasma Lactic Acid John 3.3 H* (0.7-2.0) mmol/L Alkaline Phosphatase 127 H (38-126) U/L Total Protein 8.7 H (6.3-8.2) g/dL Urine Protein (Negative) Urine Glucose (UA) (Negative) Urine Blood (Negative) Urine RBC (0-5) /hpf Urine Mucus (None) /hpf 07/12/21 Range/Units 02:50 WBC (3.8-10.6) k/uL MCHC (31.0-37.0) g/dL Neutrophils # (1.3-7.7) k/uL Lymphocytes # (1.0-4.8) k/uL Sodium (137-145) mmol/L Chloride (98-107) mmol/L Glucose (74-99) mg/dL Plasma Lactic Acid John (0.7-2.0) mmol/L Alkaline Phosphatase (38-126) U/L Total Protein (6.3-8.2) g/dL Urine Protein 1+ H (Negative) Urine Glucose (UA) Trace H (Negative) Urine Blood Trace H (Negative) Urine RBC 9 H (0-5) /hpf Urine Mucus Rare H (None) /hpf
[2021-07-12] MEDS ORDERED: HEPARIN SODIUM,PORCINE 5,000 UNIT/ML 1 ML VIAL ONE (19:47)
[2021-07-12] MEDS ORDERED: PHENYLEPHRINE-0.9% NACL SYG 1,000 MCG/10 ML SYRINGE ONE (19:47)
[2021-07-12] MEDS ORDERED: ROCURONIUM 10 MG/ML (5 ML VIAL) IV ONE (19:47)
[2021-07-12] MEDS ORDERED: SUCCINYLCHOLINE CHLORIDE 100 MG/5 ML SYR IV ONE (19:47)
[2021-07-12] MEDS ORDERED: GLYCOPYRROLATE 0.2 MG/ML 2 ML VIAL ONE (19:47)
[2021-07-12] MEDS ORDERED: fentaNYL (PF) 50 MCG/ML 2 ML AMP ONE (19:47)
[2021-07-12] MEDS ORDERED: PROPOFOL 10 MG/ML 20 ML VIAL IV ONE (19:47)
[2021-07-12] MEDS ORDERED: NEOSTIGMINE 1 MG/ML 10 ML VIAL ONE (19:47)
[2021-07-12] MEDS ORDERED: LACTATED RINGERS 1,000 ML IV ONE (19:47)
[2021-07-12] MEDS ORDERED: SODIUM CHLORIDE 0.9% 100 ML with ceFAZolin 2,000 MG IV ONE ×2 (20:00)
--- NOTE | 2021-07-12 20:50 | P.OP ---
Date of Procedure: 07/12/21 Preoperative Diagnosis: Small bowel obstruction Postoperative Diagnosis: Strangulate internal hernia with small bowel obstruction Procedure(s) Performed: Exploratory laparotomy Small bowel resection. Repair of incisional hernia Anesthesia: AIRAM Surgeon: Domenico Valencia Estimated Blood Loss (ml): 25 Pathology: other (Small bowel) Condition: critical Disposition: PACU Description of Procedure: The patient's placed the operative table in the supine position her she received a general anesthetic. Her abdomen was prepped and draped in sterile fashion. The abdomen was entered through the midline. Upon entering the pleural cavity. There was approximately 1000 mL of sanguinous ascites. The incision was extended inferiorly. There was a small incisional hernia seen. The small bowel was examined. There appeared to be evidence of a internal hernia with straining of small bowel. An adhesive band was found freeing the hernia. This was lysed with sharp dissection. And the small bowel was released. The small bowel was black. The small bowel was then transected proximally distally. With a GI stapler. Then using the Enseal device the mesentery the bowel was divided. The specimens of pathology. A [id number] functional end-to-end staple anastomosis was then created using DELLA and TA stapler. A 3-0 GI silk sutures across stitch. The abdomen was then irrigated with 4 L normal saline. No bleeding was seen. The fascia was closed with looped #1 PDS suture. 2 sutures used to close the fascia. The incisional hernias repaired, fascial closure. The skin was closed cristal. Several Telfa christian were placed in the subcutaneous tissue. Patient was sent to recovery room in critical condition.
[2021-07-12] MEDS ORDERED: FAMOTIDINE 20 MG TAB PO SCH (21:00)
[2021-07-12] MEDS: HYDROmorphone 0.5 MG/0.5 ML SYRINGE IVP ONE ×3 (21:04→21:23)
[2021-07-12 21:39] LABS: Glucose,Whole Blood 128 mg/dL (75-99)
[2021-07-12] MEDS: CYANOCOBALAMIN 500 MCG TAB PO SCH (23:00)
[2021-07-12] MEDS: FOLIC ACID 1 MG TAB PO SCH (23:01)
[2021-07-12] MEDS: DICLOFENAC SODIUM GEL 100 GM TUBE TOPICAL SCH ×3 (23:10→23:13)
[2021-07-12] MEDS: ACETAMINOPHEN TAB 325 MG TAB PO SCH (23:12)
[2021-07-12] MEDS: PRAVASTATIN SODIUM 20 MG TAB PO SCH (23:13)
[2021-07-13] MEDS: METOPROLOL TARTRATE 25 MG TAB PO SCH ×2 (04:14→17:42)
[2021-07-13 07:46] LABS: INR 1.1 (<1.2); Prothrombin Time 12.1 sec (9.0-12.0)
[2021-07-13 07:50] LABS: Basophils % (A) 0 %; Eosinophils % (A) 0 %; HCT 26.8 % (34.0-46.0); Lymphocytes # (A) 1.1 k/uL (1.0-4.8); Lymphocytes % (A) 7 %; MCH 30.7 pg (25.0-35.0); MCV 95.8 fL (80.0-100.0); Mean Platelet Volume 9.2; Monocytes # (A) 0.8 k/uL (0-1.0); Monocytes % (A) 5 %; Neutrophils # (A) 14.2 k/uL (1.3-7.7); Neutrophils % (A) 87 %; Platelet Count 208 k/uL (150-450); RDW 14.4 % (11.5-15.5); WBC 16.3 k/uL (3.8-10.6)
[2021-07-13 07:51] LABS: Calcium 7.8 mg/dL (8.4-10.2); Potassium 4.1 mmol/L (3.5-5.1)
[2021-07-13 08:04] LABS: HGB 8.6 gm/dL (11.4-16.0)
[2021-07-13] MEDS: ACETAMINOPHEN TAB 325 MG TAB PO SCH ×2 (09:51→16:56)
[2021-07-13] MEDS: amLODIPine 5 MG TAB PO SCH ×2 (09:52→21:42)
[2021-07-13] MEDS: FAMOTIDINE 20 MG TAB PO SCH (09:52)
[2021-07-13] MEDS: LOSARTAN 50 MG TAB PO SCH (09:52)
[2021-07-13] MEDS: SODIUM CHLORIDE 0.9% 1,000 ML IV SCH ×3 (10:14→22:17)
[2021-07-13] MEDS: DICLOFENAC SODIUM GEL 100 GM TUBE TOPICAL SCH ×4 (10:17→21:42)
[2021-07-13] MEDS: MEMANTINE 10 MG TAB PO SCH ×2 (10:18→16:56)
--- NOTE | 2021-07-13 10:29 | P.CNPUL ---
History of Present Illness Consult date: 07/13/21 Requesting physician: Domenico Valencia Reason for consult: other (Critical care management) Chief complaint: Abdominal pain History of present illness: This is a 70-year-old female patient with a known history of hypertension, hyperlipidemia, dementia, chronic obstructive pulmonary disease, former smoker. She was brought into the emergency room early yesterday morning with severe abdominal pain. It was sharp constant no alleviating or exacerbating factors. Acute abdominal series revealed minimal atelectasis at the left lung base. Nonacute abdomen. CT angiogram revealed no evidence of pulmonary embolism. No evidence of arterial aneurysm or dissection. No evidence of hemodynamic stenos is. There was moderately dilated fluid-filled loop of the small bowel in the pelvis. Possible mechanical bowel obstruction or severe localized ileus. Echocardiogram revealed preserved left ventricular systolic function without any significant valvular abnormalities. computed tomography scan of the abdomen and pelvis revealed persistent focal dilations of the small bowel loops in the lower abdomen highly suggestive of a closed loop obstruction. Could be related to adhesions, internal hernia or abdominal bowel rotation. Suspect early bowel ischemia. No amilcar pneumatosis or free peritoneal air. She was taken to the operating room last evening and had undergone an exploratory laparotomy, small bowel resection, repair of incisional hernia. She was admitted to the intensive care unit for closer observation. She is seen today in consultation. She is a wake and alert. Confused. Oriented times one. She is maintaining good O2 saturations in the 90s on 2 L/m per nasal cannula. She has normal saline running at 100 ML's per hour. In sinus rhythm with frequent PACs. She did have a brief episode of atrial fibrillation. White count 16.3. Hemoglobin 8.6. Platelets 208. Sodium 134. Potassium 4.1. BUN 20. Creatinine 1.03. Glucose 114. Lactic acid 1.4. Review of Systems REVIEW OF SYSTEMS: CONSTITUTIONAL: Denies any recent significant weight loss or weight gain. EYES: Denies change in vision. EARS, NOSE, MOUTH, THROAT: Denies headaches, denies sore throat. CARDIOVASCULAR: Denies chest pain, palpitations or syncopal episodes. RESPIRATORY: Denies shortness of breath, cough, congestion or hemoptysis. GASTROINTESTINAL: Positive for abdominal pain GENITOURINARY: Denies hematuria, denies infections. MUSKULOSKELETAL: Denies pain, denies swelling. INTEGUMENTARY: Denies rash, denies eczema. NEUROLOGICAL: Denies recent memory loss, no recent seizure activity. PSYCHIATRIC: Denies anxiety, denies depression. HEMATOLOGIC/LYMPHATIC: Denies anemia, denies enlarged lymph nodes. Past Medical History Past Medical History: COPD, Hyperlipidemia, Hypertension Additional Past Medical History / Comment(s): Diverticular disease, constipation, chronic anemia, PVD/venous insufficiency, lower extremity edema/discoloration, arthritis in multiple joints, gout. History of Any Multi-Drug Resistant Organisms: None Reported Past Surgical History: Hysterectomy Additional Past Surgical History / Comment(s): Bilateral breast reductions, colonoscopy. Past Anesthesia/Blood Transfusion Reactions: No Reported Reaction Past Psychological History: No Psychological Hx Reported Smoking Status: Former smoker Past Alcohol Use History: None Reported Past Drug Use History: None Reported - Past Family History Mother History Unknown: Yes Additional Family Medical History / Comment(s): Pt was adopted. Father History Unknown: Yes Additional Family Medical History / Comment(s): Pt was adopted. Medications and Allergies Home Medications Medication Instructions Recorded Confirmed Type Acetaminophen Tab [Tylenol] 650 mg PO BID@0800,169907/12/21 07/12/21 History Acetaminophen [Tylenol 8 Hour] 650 mg PO Q4H PRN 07/12/21 07/12/21 History Acetaminophen-Codeine 300-30mg 1 tab PO Q12H PRN 07/12/21 07/12/21 History [Tylenol w/codeine #3] Aspirin 325 mg PO DAILY@169907/12/21 07/12/21 History Cyanocobalamin [Vitamin B-12] 500 mcg PO DAILY@169907/12/21 07/12/21 History Diclofenac Sodium Gel [Voltaren 2 gm TOPICAL QID 07/12/21 07/12/21 History Gel] Ergocalciferol [Vitamin D2 (1250 1,250 mcg PO CHICAS@169907/12/21 07/12/21 History Mcg = 42560 Iu)] Folic Acid 1 mg PO DAILY@169907/12/21 07/12/21 History Furosemide [Lasix] 60 mg PO DAILY@169907/12/21 07/12/21 History Magnesium Hydroxide [Milk of 7,200 mg PO DAILY PRN 07/12/21 07/12/21 History Magnesia Concentrate] Memantine [Namenda] 10 mg PO BID@0800,1700 07/12/21 07/12/21 History Metoprolol Tartrate [Lopressor] 25 mg PO BID@0800,1700 07/12/21 07/12/21 History Na Phos,M-B/Na Phos,Di-Ba [Fleet 133 ml RECTAL DAILY PRN 07/12/21 07/12/21 History Adult] Potassium Chloride [Klor-Con 10 ER] 10 meq PO DAILY@0800 07/12/21 07/12/21 History Pravastatin Sodium [Pravachol] 20 mg PO HS@2100 07/12/21 07/12/21 History Ubidecarenone [Co Q-10] 100 mg PO DAILY@1700 07/12/21 07/12/21 History bisacodyL [Dulcolax] 10 mg RECTAL DAILY PRN 07/12/21 07/12/21 History Allergies Allergy/AdvReac Type Severity Reaction Status Date / Time doxycycline [From Vibramycin] Allergy Unknown Verified 07/12/21 06:25 niacin Allergy Unknown Verified 07/12/21 06:25 simvastatin [From Zocor] Allergy Unknown Verified 07/12/21 06:25 Physical Exam Vitals: Vital Signs Temp Pulse Pulse Resp BP BP Pulse Ox 07/13/21 07:48 97 07/13/21 07:00 113 H 22 120/56 97 07/13/21 06:00 115 H 20 137/54 96 07/13/21 05:00 113 H 16 139/56 98 07/13/21 04:00 100 F H 102 H 90 20 130/52 99 07/13/21 03:00 105 H 19 123/58 99 07/13/21 02:00 93 19 129/64 99 07/13/21 01:00 93 16 145/74 99 07/13/21 00:04 97 17 143/81 98 07/13/21 00:00 98 F 96 90 14 127/68 97 07/12/21 23:00 89 19 111/70 98 07/12/21 22:00 98.6 F 89 16 130/72 96 07/12/21 21:38 38 H 92 L 07/12/21 21:21 90 16 136/58 99 07/12/21 21:06 90 16 125/60 100 07/12/21 20:51 97.6 F 106 H 16 120/56 97 07/12/21 18:31 112 H 16 122/71 92 L 07/12/21 11:32 92 20 178/106 95 Intake and Output 07/12/21 07/13/21 07/13/21 22:59 06:59 14:59 Intake Total 1150 800 100 Output Total 625 460 30 Balance 525 340 70 Intake: IV 1150 Intake, IV Titration 800 100 Amount Sodium Chloride 0.9% 100 800 100 ml @ 0 mls/hr IV .STK-MED ONE with ceFAZolin 2,000 mg Rx#:[id number] Output: Gastric Drainage 150 Urine 600 310 30 Estimated Blood Loss 25 Other: Voiding Method Indwelling Catheter Weight 104.326 kg 120.8 kg GENERAL EXAM: Alert, pleasant 70-year-old female patient, oriented times one, on 2 L nasal cannula, comfortable in no apparent distress. HEAD: Normocephalic. EYES: Normal reaction of pupils, equal size. NOSE: Clear with pink turbinates. THROAT: No erythema or exudates. NECK: No masses, no JVD. CHEST: No chest wall deformity. LUNGS: Equal air entry with no crackles, wheeze, rhonchi or dullness. CVS: S1 and S2 normal with no audible murmur, regular rhythm. ABDOMEN: Surgical dressing dry and intact.No hepatosplenomegaly, hypoactive bowel sounds, no guarding or rigidity. SPINE: No scoliosis or deformity SKIN: No rashes CENTRAL NERVOUS SYSTEM: No focal deficits, tone is normal in all 4 extremities. EXTREMITIES: There is no peripheral edema. No clubbing, no cyanosis. Peripheral pulses are intact. Results - Laboratory Findings CBC and BMP: 07/13/21 07:14 07/13/21 07:14 PT/INR, D-dimer PT 12.1 sec (9.0-12.0) H 07/13/21 07:14 INR 1.1 (<1.2) 07/13/21 07:14 Abnormal lab findings: Abnormal Labs 07/12/21 07/12/21 07/12/21 02:13 02:13 02:38 WBC 12.3 H RBC Hgb Hct MCHC 30.9 L Neutrophils # 10.8 H Lymphocytes # 0.7 L PT APTT Sodium 136 L Chloride 96 L BUN Glucose 179 H POC Glucose (mg/dL) Plasma Lactic Acid John 3.3 H* Calcium Alkaline Phosphatase 127 H Total Protein 8.7 H Urine Protein Urine Glucose (UA) Urine Blood Urine RBC Urine Mucus 07/12/21 07/12/21 07/12/21 02:50 10:07 10:07 WBC RBC Hgb Hct MCHC Neutrophils # Lymphocytes # PT APTT 43.9 H Sodium Chloride BUN Glucose POC Glucose (mg/dL) Plasma Lactic Acid John 4.7 H* Calcium Alkaline Phosphatase Total Protein Urine Protein 1+ H Urine Glucose (UA) Trace H Urine Blood Trace H Urine RBC 9 H Urine Mucus Rare H 07/12/21 07/12/21 07/12/21 13:14 17:32 21:37 WBC RBC Hgb Hct MCHC Neutrophils # Lymphocytes # PT APTT Sodium Chloride BUN Glucose POC Glucose (mg/dL) 128 H Plasma Lactic Acid John 3.7 H* 2.7 H* Calcium Alkaline Phosphatase Total Protein Urine Protein Urine Glucose (UA) Urine Blood Urine RBC Urine Mucus 07/13/21 07/13/21 07/13/21 00:10 07:14 07:14 WBC 16.3 H RBC 2.80 L Hgb 8.6 L D Hct 26.8 L MCHC Neutrophils # 14.2 H Lymphocytes # PT 12.1 H APTT Sodium Chloride BUN Glucose POC Glucose (mg/dL) Plasma Lactic Acid John 3.7 H* Calcium Alkaline Phosphatase Total Protein Urine Protein Urine Glucose (UA) Urine Blood Urine RBC Urine Mucus 07/13/21 07:14 WBC RBC Hgb Hct MCHC Neutrophils # Lymphocytes # PT APTT Sodium 134 L Chloride BUN 20 H Glucose 114 H POC Glucose (mg/dL) Plasma Lactic Acid John Calcium 7.8 L Alkaline Phosphatase Total Protein Urine Protein Urine Glucose (UA) Urine Blood Urine RBC Urine Mucus Assessment and Plan Assessment: 1 Severe abdominal discomfort in a patient found to have persistent focal dilatation of the small bowel loops in the lower abdomen with findings highly suggestive of a closed loop obstruction. Underlying etiology related to a dhesions, hernia or abdominal bowel rotation not excluded. Suspected early bowel ischemia. She did undergo exploratory laparotomy with small bowel resection and repair of incisional hernia. Postoperative day #1. 2 History of hypertension 3 History of hyperlipidemia 4 Dementia 5 History of chronic obstructive pulmonary disease 6 Former smoker 7 skilled nursing resident 8 Paroxysmal atrial fibrillation Plan: The patient was seen and evaluated Currently stable from the critical care standpoint Continue normal saline at 100 ML's per hour Titrate the FiO2 as tolerated Attempt to educate the patient regarding incentive spirometer Could be transferred to a Med/Surg floor with telemetry We will continue to follow and make further recommendations based on her clinical status I have personally seen and examined the patient, performed the documentation and the assessment and plan as written. Number of minutes spent on the visit: 20
[2021-07-13] MEDS: HEPARIN SOD,PORK IN 0.45% NACL 25,000 UNIT in 0.45% NACL 1 250ML.BAG IV SCH (10:50)
--- NOTE | 2021-07-13 15:41 | P.PN ---
Progress Note - Text Progress Note Date: 07/13/21 Chief Complaint: Abdominal pain This is a 70-year-old patient, follows with Dr. Sullivan at [facility]. Chronic stable medical conditions include COPD, hypertension, hyperlipidemia, dementia. Patient herself is not able to give much of a history except for abdominal pain. As per the EMS report they will call doubt patient had been complaining of abdominal pain. No fever no chills no nausea vomiting was reported. Patient really cannot tell much. She is brought into the ER. Patient denies any fever and chills. Denies any urinary symptoms. Cannot tell me about her bowel pattern. July 13: ICU: Patient was taken to the OR yesterday by Dr. Valencia and had surgery for strangulate and internal hernia with small bowel obstruction. NG tube to suction in place. On room air. Has an abdominal dressing. Taylor catheter. Elevated shows sinus rhythm with PACs. Pain control. Given Catapres patch for blood pressure. Patient was noted to have bloody ascites. Suspect underlying perforation. Started IV Zosyn. Active Medications Acetaminophen (Acetaminophen Tab 325 Mg Tab) 650 mg PO Q4H PRN PRN Reason: GENERAL DISCOMFORT Acetaminophen (Acetaminophen Tab 325 Mg Tab) 650 mg PO BID@0800,1700 [facility] Last Admin: 07/13/21 09:51 Dose: 650 mg Documented by: Acetaminophen/Codeine Phosphate (Acetaminophen-Codeine 300-30mg Tab) 1 each PO Q12H PRN PRN Reason: Pain Amlodipine Besylate (Amlodipine 5 Mg Tab) 5 mg PO BID [facility] Last Admin: 07/13/21 09:52 Dose: 5 mg Documented by: Cyanocobalamin (Cyanocobalamin 500 Mcg Tab) 500 mcg PO DAILY@1700 [facility] Last Admin: 07/12/21 23:00 Dose: Not Given Documented by: Diclofenac Sodium (Diclofenac Sodium Gel 100 Gm Tube) 2 gm TOPICAL QID [facility]; Protocol Last Admin: 07/13/21 13:58 Dose: Not Given Documented by: Ergocalciferol (Ergocalciferol 1,250 Mcg (50,000 Iu) Capsule) 1,250 mcg PO CHICAS@1700 [facility] Famotidine (Famotidine 20 Mg Tab) 20 mg PO DAILY [facility] Last Admin: 07/13/21 09:52 Dose: 20 mg Documented by: Folic Acid (Folic Acid 1 Mg Tab) 1 mg PO DAILY@1700 [facility] Last Admin: 07/12/21 23:01 Dose: Not Given Documented by: Heparin Sodium (Porcine) (Heparin Sodium 1,000 Un/Ml (10ml Vl)) 0 unit IV PER PROTOCOL PRN; Protocol PRN Reason: Low PTT Hydromorphone HCl (Hydromorphone 1 Mg/Ml 1 Ml Syringe) 1 mg IVP Q3HR PRN PRN Reason: Severe Pain Last Admin: 07/12/21 23:21 Dose: 1 mg Documented by: Heparin Sodium/Sodium Chloride (25,000 unit/ Sodium Chloride) 250 mls @ 10.036 mls/hr IV .Q24H [facility]; Protocol Last Admin: 07/13/21 10:50 Dose: Not Given Documented by: Sodium Chloride (Saline 0.9%) 1,000 mls @ 100 mls/hr IV .Q10H [facility] Last Admin: 07/13/21 10:51 Dose: 100 mls/hr Documented by: Lorazepam (Lorazepam 0.5 Mg Tab) 0.5 mg PO Q6HR PRN PRN Reason: Anxiety Losartan Potassium (Losartan 50 Mg Tab) 50 mg PO DAILY [facility] Last Admin: 07/13/21 09:52 Dose: 50 mg Documented by: Melatonin (Melatonin 3 Mg Tablet) 3 mg PO HS PRN PRN Reason: Insomnia Memantine (Memantine 10 Mg Tab) 10 mg PO BID@0800,1700 [facility] Last Admin: 07/13/21 10:18 Dose: 10 mg Documented by: Metoprolol Tartrate (Metoprolol Tartrate 25 Mg Tab) 25 mg PO Q12H [facility] Last Admin: 07/13/21 04:14 Dose: 25 mg Documented by: Naloxone HCl (Naloxone 0.4 Mg/Ml 1 Ml Vial) 0.2 mg IV Q2M PRN PRN Reason: Opioid Reversal Ondansetron HCl (Ondansetron 4 Mg/2 Ml Vial) 4 mg IVP Q8HR PRN PRN Reason: Nausea And Vomiting Pravastatin Sodium (Pravastatin Sodium 20 Mg Tab) 20 mg PO HS@2100 [facility] Last Admin: 07/12/21 23:13 Dose: Not Given Documented by: Past medical history to include: COPD, hypertension, hyperlipidemia, dementia Social history: Resident at [facility]. Ex-smoker. Physical examination: VITAL SIGNS: 99, 107, 19, 134/78, 95% room air GENERAL: , reclining in bed awake, not in distress. EYES: Pupils equal. Conjunctiva normal. HEENT: External appearance of nose and ears normal, oral cavity dry. NG tube to suction NECK: JVD not raised; masses not palpable. HEART: First and second heart sounds are normal; no edema. LUNGS: Respiratory rate normal; decreased breath sounds. ABDOMEN: Soft, some tenderness, no guarding rigidity, liver spleen not palpable, no masses palpable. Dressing over incision. PSYCH: Patient is able to answer simple questions. MUSCULOSKELETAL:No Clubbing/cyanosis;muscles-grossly intact. Evidence of OA. INVESTIGATIONS, reviewed in the clinical context: July 13: White count 16.3 hemoglobin 8.6 platelets 208 potassium 4.1 creatinine 1.03 lactic acid 1.4 White count 12.3 hemoglobin 13.3 platelets 226 sodium 136 potassium 4.4 creatinine 0.8 blood glucose 179 Lactic acid 3.3 then 4.7 total bilirubin 1.2 AST 32 ALT 16 lipase 65 UA:: Leukoesterase negative EKG tracing personally reviewed by me-atrial fibrillation rate 89 Acute abdominal series personally reviewed by me: Check stat x-ray no obvious infiltrate. Dilated bowel appeared to be small 2-D echocardiogram: Mild concentric LVH. EF 50-60% Assessment and plan: -Acute strangulated internal hernia with small bowel obstruction. Status post surgery by Dr. Valencia on July 12. NG tube to suction. -Bloody ascites notice during surgery. Suspect perforation. We will cover for secondary peritonitis. Start IV Zosyn -Acute postprocedure blood loss anemia expected from surgery IV Ferrlecit 2 doses -Major cognitive impairment likely from Alzheimer's dementia -Obesity BMI 39.5 -IV heparin monitoring Follow PTT -Primary osteoarthritis multiple joints bilaterally Voltaren gel 2 g topical 4 times a day, Tylenol 3 when necessary -Essential hypertension Lopressor 25 mg twice a day. Norvasc 5 mg twice a day -Hyperlipidemia Pravachol 20 mg daily at bedtime -Persistent atrial fibrillation, rate controlled Lopressor 25 mg twice a day NG tube to suction. IV fluids. IV heparin. Nothing by mouth. Had been on IV heparin. Add IV Zosyn.
[2021-07-13] MEDS: SODIUM FERRIC GLUCONAT-SUCROSE 125 MG in SODIUM CHLORIDE 0.9% 100 ML IVPB SCH (16:23)
[2021-07-13] MEDS: FOLIC ACID 1 MG TAB PO SCH (16:56)
[2021-07-13] MEDS: CYANOCOBALAMIN 500 MCG TAB PO SCH (16:57)
--- NOTE | 2021-07-13 17:08 | P.PN ---
Subjective Progress Note Date: 07/13/21 CHIEF COMPLAINT: Small bowel obstruction HISTORY OF PRESENT ILLNESS: Patient is postop day #1 status post exploratory laparotomy, small bowel resection and repair of incisional hernia for strangulated internal hernia with small bowel obstruction. Patient seen in the ICU this morning. She has a bedside sitter. Patient had been pulling at her NG tube. Patient had about 150 ML of brownish output through the NG tube. She did have a low-grade temp of 100 and heart rate of 113. She is on room air at 2 L satting 92%. Her white count did go up from 12-16.3 hemoglobin dropped from 13.3-8.6 platelets 208 patient denies any abdominal pain. Denies any flatus or bowel activity. Denies any nausea or vomiting. Patient seen and examined with Dr. washburn PHYSICAL EXAM: VITAL SIGNS: Reviewed. GENERAL: Well-developed in no acute distress. HEENT: No sclera icterus. Extraocular movements grossly intact. Moist buccal mucosa. Head is atraumatic, normocephalic. ABDOMEN: Soft. Nondistended. Nontender. Incision site clean dry and intact with christian NEUROLOGIC: Patient is awake and alert with some confusion ASSESSMENT: 1. Strangulated internal hernia with small bowel obstruction status post laparotomy, small bowel resection and repair of incisional hernia 2. Atrial fibrillation PLAN: -Okay to transfer out of the ICU -Okay to start anticoagulation tomorrow -Incentive spirometer ordered -Continue NG tube for decompression -Continue IV fluids -Continue supportive care -Continue pain medication as needed Physician Rn Hemo Dialysis note has been reviewed by physician. Signing provider agrees with the documented findings, assessment, and plan of care. Objective - Vital Signs Vital signs: Vital Signs Temp 99.0 F 07/13/21 14:00 Pulse 107 H 07/13/21 14:00 Resp 19 07/13/21 14:00 BP 134/78 07/13/21 14:00 Pulse Ox 91 L 07/13/21 14:00 Intake & Output 07/12/21 07/13/21 07/13/21 18:59 06:59 18:59 Intake Total 1950 950 Output Total 1085 400 Balance 865 550 Weight 104.326 kg 120.8 kg Intake: IV 1150 600 Sodium Chloride 0.9% 1, 600 000 ml @ 100 mls/hr IV . Q10H [facility] Rx#:[id number] Intake, IV Titration 800 350 Amount Heparin Sod,Pork in 0.45% 250 NaCl 25,000 unit In 0.45 % NaCl 1 250ml.bag @ 9.62 UNITS/KG/HR 10.036 mls/ hr IV .Q24H [facility] Rx#: [id number] Sodium Chloride 0.9% 100 800 100 ml @ 0 mls/hr IV .STK-MED ONE with ceFAZolin 2,000 mg Rx#:[id number] Output: Gastric Drainage 150 100 Urine 910 300 Estimated Blood Loss 25 Other: Voiding Method Indwelling Catheter Indwelling Catheter - Labs CBC & Chem 7: 07/13/21 07:14 07/13/21 07:14 Labs: Abnormal Lab Results - Last 24 Hours (Table) 07/12/21 07/12/21 07/13/21 Range/Units 17:32 21:37 00:10 WBC (3.8-10.6) k/uL RBC (3.80-5.40) m/uL Hgb (11.4-16.0) gm/dL Hct (34.0-46.0) % Neutrophils # (1.3-7.7) k/uL PT (9.0-12.0) sec Sodium (137-145) mmol/L BUN (7-17) mg/dL Glucose (74-99) mg/dL POC Glucose (mg/dL) 128 H (75-99) mg/dL Plasma Lactic Acid John 2.7 H* 3.7 H* (0.7-2.0) mmol/L Calcium (8.4-10.2) mg/dL 07/13/21 07/13/21 07/13/21 Range/Units 07:14 07:14 07:14 WBC 16.3 H (3.8-10.6) k/uL RBC 2.80 L (3.80-5.40) m/uL Hgb 8.6 L D (11.4-16.0) gm/dL Hct 26.8 L (34.0-46.0) % Neutrophils # 14.2 H (1.3-7.7) k/uL PT 12.1 H (9.0-12.0) sec Sodium 134 L (137-145) mmol/L BUN 20 H (7-17) mg/dL Glucose 114 H (74-99) mg/dL POC Glucose (mg/dL) (75-99) mg/dL Plasma Lactic Acid John (0.7-2.0) mmol/L Calcium 7.8 L (8.4-10.2) mg/dL
[2021-07-13] MEDS: PIPERACILLIN-TAZOBACTAM 3.375 GM in SODIUM CHLORIDE 0.9% 100 ML IVPB SCH (17:26)
--- NOTE | 2021-07-13 19:18 | PN ---
PROGRESS NOTE This lady underwent yesterday surgery by laparotomy and small-bowel resection. She remains in atrial fibrillation. Rate is somewhat better controlled. Her blood pressure control is also optimized. Urine output is fairly decent. She is currently on a Cardizem drip, which I will continue until we can give her oral medications, or if the rate is reasonably well controlled we can decrease the drip. S1, S2 heard normally. Irregular rhythm noted. Short systolic murmur noted. Lungs reveal diminished air entry. Abdomen is soft. Lower extremities reveal diminished pulses. Central nervous system is normal. RECOMMENDATIONS: For now we will continue IV Cardizem. If rate control is good, we can discontinue this and see how she does. As soon as possible, once oral medications are resumed, we can give her beta blockers. Her anticoagulation should be resumed, but I will let the surgeon make the decision. LISANDRA / LUIS: [id number] /
[2021-07-13] MEDS: PRAVASTATIN SODIUM 20 MG TAB PO SCH (21:42)
[2021-07-13] MEDS: ACETAMINOPHEN TAB 325 MG TAB PO PRN (22:30)
[2021-07-14] MEDS: PIPERACILLIN-TAZOBACTAM 3.375 GM in SODIUM CHLORIDE 0.9% 100 ML IVPB SCH ×3 (00:13→17:09)
[2021-07-14] MEDS: SODIUM CHLORIDE 0.9% 1,000 ML IV SCH ×2 (07:22→17:09)
[2021-07-14] MEDS: HEPARIN SOD,PORK IN 0.45% NACL 25,000 UNIT in 0.45% NACL 1 250ML.BAG IV SCH (07:22)
[2021-07-14] MEDS: MEMANTINE 10 MG TAB PO SCH ×2 (07:44→17:09)
[2021-07-14] MEDS: ACETAMINOPHEN TAB 325 MG TAB PO SCH ×2 (07:44→17:09)
[2021-07-14] MEDS: amLODIPine 5 MG TAB PO SCH ×2 (07:44→20:48)
[2021-07-14] MEDS: LOSARTAN 50 MG TAB PO SCH (07:44)
[2021-07-14] MEDS: METOPROLOL TARTRATE 25 MG TAB PO SCH (07:45)
[2021-07-14] MEDS: FAMOTIDINE 20 MG TAB PO SCH (07:45)
[2021-07-14] MEDS: DICLOFENAC SODIUM GEL 100 GM TUBE TOPICAL SCH ×3 (07:54→17:10)
--- NOTE | 2021-07-14 10:11 | P.PN ---
Subjective Progress Note Date: 07/14/21 Principal diagnosis: Internal hernia Patient doing well today. Says her pain is minimal. No nausea or vomiting. Denies flatus or bowel movement either though. T-max 100.3 last night. Labs pending. Objective - Vital Signs Vital signs: Vital Signs Temp 98.0 F 07/14/21 07:11 Pulse 103 H 07/14/21 07:11 Resp 17 07/14/21 07:11 BP 121/71 07/14/21 07:11 Pulse Ox 92 L 07/14/21 07:11 Intake & Output 07/13/21 07/14/21 07/14/21 18:59 06:59 18:59 Intake Total 950 Output Total 740 Balance 210 Intake: IV 600 Sodium Chloride 0.9% 1, 600 000 ml @ 100 mls/hr IV . Q10H [facility] Rx#:[id number] Intake, IV Titration 350 Amount Heparin Sod,Pork in 0.45% 250 NaCl 25,000 unit In 0.45 % NaCl 1 250ml.bag @ 9.62 UNITS/KG/HR 10.036 mls/ hr IV .Q24H [facility] Rx#: [id number] Sodium Chloride 0.9% 100 100 ml @ 0 mls/hr IV .STK-MED ONE with ceFAZolin 2,000 mg Rx#:[id number] Output: Gastric Drainage 100 Urine 640 Uretheral (Taylor) 340 Other: Voiding Method Indwelling Catheter Indwelling Catheter Indwelling Catheter - Exam Abdomen: Soft, nondistended, mild tenderness, dressing clean and dry - Labs CBC & Chem 7: 07/13/21 07:14 07/13/21 07:14 Assessment and Plan (1) Internal hernia Narrative/Plan: Patient doing well postoperative. Monitor fevers. Recheck labs tomorrow. Keep nothing by mouth for now. Gradually increase activity. Current Visit: Yes Status: Acute Code(s): K45.8 - OTH ABDOMINAL HERNIA WITHOUT OBSTRUCTION OR GANGRENE SNOMED Code(s): 54447749
--- NOTE | 2021-07-14 10:49 | P.PN ---
Subjective Progress Note Date: 07/14/21 This is a 70-year-old female patient with past medical history of dementia, COPD, hypertension, dyslipidemia and chronic lower extremity edema. She is a former smoker. 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 She was brought to the emergency department from [facility] for worsening upper abdominal pain. We were asked to see the patient in consultation for atrial fibrillation, new onset. CT scan on admission showed bowel obstruction versus ileus. She is physically underwent exploratory laparotomy and small bowel resection and repair of incisional hernia. She was initially on Cardizem drip and has been transitioned to oral beta rohit. She is currently maintaining sinus mechanism. Heart rate is currently in the 90s. Heart pressure is stable. Ex temperature over the last 24 hours 100.3F. Echocardiogram with Doppler study this admission showed normal LV systolic function. Laboratory values from yesterday showed a white blood cell count of 16,300 and hemoglobin of 8.6 which is down from 13.3. Potassium 4.1, BUN 20 creatinine 1.03. At the time of my examination she is resting comfortably in bed. She denies any current complaints. She is confused as she says that she ate breakfast this morning however she has been nothing by mouth. Objective - Vital Signs Vital signs: Vital Signs Temp 98.0 F 07/14/21 07:11 Pulse 103 H 07/14/21 07:11 Resp 17 07/14/21 07:11 BP 121/71 07/14/21 07:11 Pulse Ox 92 L 07/14/21 07:11 Intake & Output 07/13/21 07/14/21 07/14/21 18:59 06:59 18:59 Intake Total 950 Output Total 740 Balance 210 Intake: IV 600 Sodium Chloride 0.9% 1, 600 000 ml @ 100 mls/hr IV . Q10H [facility] Rx#:[id number] Intake, IV Titration 350 Amount Heparin Sod,Pork in 0.45% 250 NaCl 25,000 unit In 0.45 % NaCl 1 250ml.bag @ 9.62 UNITS/KG/HR 10.036 mls/ hr IV .Q24H [facility] Rx#: [id number] Sodium Chloride 0.9% 100 100 ml @ 0 mls/hr IV .STK-MED ONE with ceFAZolin 2,000 mg Rx#:[id number] Output: Gastric Drainage 100 Urine 640 Uretheral (Taylor) 340 Other: Voiding Method Indwelling Catheter Indwelling Catheter Indwelling Catheter - Exam PHYSICAL EXAMINATION: HEENT: Head is atraumatic, normocephalic. Pupils equal, round. Neck is supple. There is no elevated jugular venous pressure. HEART EXAMINATION: Heart sounds regular, S1 and S2 normal. No murmur or gallop heard. CHEST EXAMINATION: Lungs are clear to auscultation and precussion. No chest wall tenderness is noted on palpation or with deep breathing. ABDOMEN: Soft. Bowel sounds are hypoactive. She's had no flatus or bowel movement. EXTREMITIES: 2+ peripheral pulses with no evidence of peripheral edema and no calf tenderness noted. NEUROLOGIC patient is awake, alert and oriented x1. . - Labs CBC & Chem 7: 07/13/21 07:14 07/13/21 07:14 Assessment and Plan Assessment: #1 bowel obstruction, status post exploratory laparotomy with small bowel resection and incisional hernia repair #2 paroxysmal atrial fibrillation, [id number] score 3 #3 hypertension #4 dementia #5 dyslipidemia #6 chronic lower extremity edema Plan: From a cardiology perspective we will increase the beta rohit. Patient will require long-term anticoagulation. We will start Eliquis 5mg BID once cleared by surgery. We will continue to follow the patient right further recommendations accordingly. DIRECTOR CLINICAL DATA note has been reviewed, I agree with a documented findings and plan of care. Patient was seen and examined.
[2021-07-14] MEDS ORDERED: METOPROLOL TARTRATE 25 MG TAB PO STA (10:50)
[2021-07-14] MEDS: SODIUM FERRIC GLUCONAT-SUCROSE 125 MG in SODIUM CHLORIDE 0.9% 100 ML IVPB SCH (11:27)
[2021-07-14 12:37] LABS: HGB 8.2 gm/dL (11.4-16.0); Hypochromasia Marked; MCH 31.4 pg (25.0-35.0); MCHC 31.6 g/dL (31.0-37.0); MCV 99.4 fL (80.0-100.0); Platelet Count 164 k/uL (150-450); RBC 2.62 m/uL (3.80-5.40); RDW 14.3 % (11.5-15.5)
[2021-07-14] MEDS: FOLIC ACID 1 MG TAB PO SCH (17:09)
[2021-07-14] MEDS: CYANOCOBALAMIN 500 MCG TAB PO SCH (17:09)
--- NOTE | 2021-07-14 17:23 | P.PN ---
Progress Note - Text Progress Note Date: 07/14/21 Chief Complaint: Abdominal pain This is a 70-year-old patient, follows with Dr. Sullivan at [facility]. Chronic stable medical conditions include COPD, hypertension, hyperlipidemia, dementia. Patient herself is not able to give much of a history except for abdominal pain. As per the EMS report they will call doubt patient had been complaining of abdominal pain. No fever no chills no nausea vomiting was reported. Patient really cannot tell much. She is brought into the ER. Patient denies any fever and chills. Denies any urinary symptoms. Cannot tell me about her bowel pattern. July 13: ICU: Patient was taken to the OR yesterday by Dr. Valencia and had surgery for strangulate and internal hernia with small bowel obstruction. NG tube to suction in place. On room air. Has an abdominal dressing. Taylor catheter. Elevated shows sinus rhythm with PACs. Pain control. Given Catapres patch for blood pressure. Patient was noted to have bloody ascites. Suspect underlying perforation. Started IV Zosyn. July 14: Nothing by mouth. Laying in bed. IV Zosyn. IV fluids. Low-grade fever. Some abdominal pain. NG tube. Active Medications Acetaminophen (Acetaminophen Tab 325 Mg Tab) 650 mg PO Q4H PRN PRN Reason: GENERAL DISCOMFORT Last Admin: 07/13/21 22:30 Dose: 650 mg Documented by: Acetaminophen (Acetaminophen Tab 325 Mg Tab) 650 mg PO BID@0800,1700 [facility] Last Admin: 07/14/21 17:09 Dose: 650 mg Documented by: Acetaminophen/Codeine Phosphate (Acetaminophen-Codeine 300-30mg Tab) 1 each PO Q12H PRN PRN Reason: Pain Amlodipine Besylate (Amlodipine 5 Mg Tab) 5 mg PO BID [facility] Last Admin: 07/14/21 07:44 Dose: 5 mg Documented by: Cyanocobalamin (Cyanocobalamin 500 Mcg Tab) 500 mcg PO DAILY@1700 [facility] Last Admin: 07/14/21 17:09 Dose: 500 mcg Documented by: Diclofenac Sodium (Diclofenac Sodium Gel 100 Gm Tube) 2 gm TOPICAL QID [facility]; Protocol Last Admin: 07/14/21 17:10 Dose: Not Given Documented by: Ergocalciferol (Ergocalciferol 1,250 Mcg (50,000 Iu) Capsule) 1,250 mcg PO CHICAS@1700 [facility] Famotidine (Famotidine 20 Mg Tab) 20 mg PO DAILY [facility] Last Admin: 07/14/21 07:45 Dose: 20 mg Documented by: Folic Acid (Folic Acid 1 Mg Tab) 1 mg PO DAILY@1700 [facility] Last Admin: 07/14/21 17:09 Dose: 1 mg Documented by: Heparin Sodium (Porcine) (Heparin Sodium 1,000 Un/Ml (10ml Vl)) 0 unit IV PER PROTOCOL PRN; Protocol PRN Reason: Low PTT Hydromorphone HCl (Hydromorphone 1 Mg/Ml 1 Ml Syringe) 1 mg IVP Q3HR PRN PRN Reason: Severe Pain Last Admin: 07/12/21 23:21 Dose: 1 mg Documented by: Heparin Sodium/Sodium Chloride (25,000 unit/ Sodium Chloride) 250 mls @ 10.036 mls/hr IV .Q24H [facility]; Protocol Last Admin: 07/14/21 07:22 Dose: Not Given Documented by: Sodium Chloride (Saline 0.9%) 1,000 mls @ 100 mls/hr IV .Q10H [facility] Last Admin: 07/14/21 17:09 Dose: Not Given Documented by: Piperacillin Sod/Tazobactam (Sod 3.375 gm/ Sodium Chloride) 100 mls @ 25 mls/hr IVPB Q8HR [facility]; Protocol Last Admin: 07/14/21 17:09 Dose: 25 mls/hr Documented by: Lorazepam (Lorazepam 0.5 Mg Tab) 0.5 mg PO Q6HR PRN PRN Reason: Anxiety Losartan Potassium (Losartan 50 Mg Tab) 50 mg PO DAILY [facility] Last Admin: 07/14/21 07:44 Dose: 50 mg Documented by: Melatonin (Melatonin 3 Mg Tablet) 3 mg PO HS PRN PRN Reason: Insomnia Memantine (Memantine 10 Mg Tab) 10 mg PO BID@0800,1700 [facility] Last Admin: 07/14/21 17:09 Dose: 10 mg Documented by: Metoprolol Tartrate (Metoprolol Tartrate 50 Mg Tab) 50 mg PO Q12H [facility] Naloxone HCl (Naloxone 0.4 Mg/Ml 1 Ml Vial) 0.2 mg IV Q2M PRN PRN Reason: Opioid Reversal Ondansetron HCl (Ondansetron 4 Mg/2 Ml Vial) 4 mg IVP Q8HR PRN PRN Reason: Nausea And Vomiting Pravastatin Sodium (Pravastatin Sodium 20 Mg Tab) 20 mg PO HS@2100 [facility] Last Admin: 07/13/21 21:42 Dose: 20 mg Documented by: Past medical history to include: COPD, hypertension, hyperlipidemia, dementia Social history: Resident at [facility]. Ex-smoker. Physical examination: VITAL SIGNS: T-max 100.3, 103, 17, 121/71, 92% room air GENERAL: , reclining in bed awake, not in distress. EYES: Pupils equal. Conjunctiva normal. HEENT: External appearance of nose and ears normal, oral cavity dry. NG tube to suction NECK: JVD not raised; masses not palpable. HEART: First and second heart sounds are normal; no edema. LUNGS: Respiratory rate normal; decreased breath sounds. ABDOMEN: Soft, some tenderness, no guarding rigidity, liver spleen not palpable, no masses palpable. Dressing over incision. Bowel sounds present PSYCH: able to answer simple questions. MUSCULOSKELETAL:No Clubbing/cyanosis;muscles-grossly intact. Evidence of OA. INVESTIGATIONS, reviewed in the clinical context: July 14: White count 15 hemoglobin 8.2 July 13: White count 16.3 hemoglobin 8.6 platelets 208 potassium 4.1 creatinine 1.03 lactic acid 1.4 White count 12.3 hemoglobin 13.3 platelets 226 sodium 136 potassium 4.4 creatinine 0.8 blood glucose 179 Lactic acid 3.3 then 4.7 total bilirubin 1.2 AST 32 ALT 16 lipase 65 UA:: Leukoesterase negative EKG tracing personally reviewed by me-atrial fibrillation rate 89 Acute abdominal series personally reviewed by me: Check stat x-ray no obvious infiltrate. Dilated bowel appeared to be small 2-D echocardiogram: Mild concentric LVH. EF 50-60% Assessment and plan: -Acute strangulated internal hernia with small bowel obstruction. Status post surgery by Dr. Valencia on July 12. NG tube to suction. -Bloody ascites notice during surgery. Suspect perforation. Possible secondary peritonitis. IV Zosyn -Acute postprocedure blood loss anemia expected from surgery IV Ferrlecit 2 doses -Major cognitive impairment likely from Alzheimer's dementia -Obesity BMI 39.5 -IV heparin monitoring: Discontinued Follow PTT -Primary osteoarthritis multiple joints bilaterally Voltaren gel 2 g topical 4 times a day, Tylenol 3 when necessary -Essential hypertension Lopressor 25 mg twice a day. Norvasc 5 mg twice a day -Hyperlipidemia Pravachol 20 mg daily at bedtime -Persistent atrial fibrillation, rate controlled Lopressor 25 mg twice a day NG tube to suction. IV fluids. By mouth medications.. Nothing by mouth. Add IV Zosyn. Follow labs.
[2021-07-14] MEDS: Acetaminophen-Codeine 300-30mg TAB PO PRN (20:48)
[2021-07-14] MEDS: PRAVASTATIN SODIUM 20 MG TAB PO SCH (20:48)
[2021-07-14] MEDS: METOPROLOL TARTRATE 50 MG TAB PO SCH (20:48)
[2021-07-15] MEDS: DICLOFENAC SODIUM GEL 100 GM TUBE TOPICAL SCH ×5 (01:06→20:32)
[2021-07-15] MEDS: SODIUM CHLORIDE 0.9% 1,000 ML IV SCH ×3 (01:06→16:19)
[2021-07-15] MEDS: PIPERACILLIN-TAZOBACTAM 3.375 GM in SODIUM CHLORIDE 0.9% 100 ML IVPB SCH ×4 (01:06→23:09)
[2021-07-15] MEDS: HEPARIN SOD,PORK IN 0.45% NACL 25,000 UNIT in 0.45% NACL 1 250ML.BAG IV SCH (01:26)
[2021-07-15] MEDS: ACETAMINOPHEN TAB 325 MG TAB PO PRN (03:55)
[2021-07-15 05:35] LABS: Basophils # (A) 0.1 k/uL (0-0.2); Basophils % (A) 0 %; Eosinophils # (A) 0.2 k/uL (0-0.7); Eosinophils % (A) 2 %; HGB 7.5 gm/dL (11.4-16.0); Hypochromasia Moderate; Lymphocytes # (A) 1.4 k/uL (1.0-4.8); Lymphocytes % (A) 9 %; MCH 30.9 pg (25.0-35.0); MCHC 31.3 g/dL (31.0-37.0); MCV 98.7 fL (80.0-100.0); Mean Platelet Volume 9.6; Monocytes # (A) 0.7 k/uL (0-1.0); Monocytes % (A) 5 %; Neutrophils # (A) 12.7 k/uL (1.3-7.7); Neutrophils % (A) 82 %; Platelet Count 241 k/uL (150-450); RBC 2.43 m/uL (3.80-5.40); RDW 14.6 % (11.5-15.5); WBC 15.4 k/uL (3.8-10.6)
[2021-07-15 05:52] LABS: African American GFR (CKD) 74 (>60 ml/min/1.73 sqM); Anion Gap 7 mmol/L; Blood Urea Nitrogen 15 mg/dL (7-17); Carbon Dioxide 24 mmol/L (22-30); Chloride 109 mmol/L (98-107); Glucose 66 mg/dL (74-99); Non-African American GFR(CKD) 64 (>60 ml/min/1.73 sqM); Potassium 3.7 mmol/L (3.5-5.1); Sodium 140 mmol/L (137-145)
[2021-07-15] MEDS: LOSARTAN 50 MG TAB PO SCH (09:29)
[2021-07-15] MEDS: FAMOTIDINE 20 MG TAB PO SCH (09:29)
[2021-07-15] MEDS: MEMANTINE 10 MG TAB PO SCH ×2 (09:29→16:20)
[2021-07-15] MEDS: METOPROLOL TARTRATE 50 MG TAB PO SCH (09:29)
[2021-07-15] MEDS: ACETAMINOPHEN TAB 325 MG TAB PO SCH ×2 (09:29→16:20)
[2021-07-15] MEDS: amLODIPine 5 MG TAB PO SCH ×2 (09:29→20:31)
[2021-07-15] MEDS ORDERED: METOPROLOL TARTRATE 25 MG TAB PO STA (09:38)
--- NOTE | 2021-07-15 10:51 | P.PN ---
Subjective Progress Note Date: 07/15/21 Principal diagnosis: Internal hernia Patient doing well today. Denies pain. No flatus or bowel movement. Says that she was brought food today. Not sure if she is confused about that or not. Objective - Vital Signs Vital signs: Vital Signs Temp 99.3 F 07/15/21 08:00 Pulse 103 H 07/15/21 08:00 Resp 16 07/15/21 08:00 BP 141/66 07/15/21 08:00 Pulse Ox 93 L 07/15/21 08:00 Intake & Output 07/14/21 07/15/21 07/15/21 18:59 06:59 18:59 Output Total 950 400 Balance -950 -400 Output: Urine 950 400 Other: Voiding Method Indwelling Catheter Indwelling Catheter - Exam Abdomen: Soft, nondistended, incision clean dry, minimal tenderness - Labs CBC & Chem 7: 07/15/21 05:21 07/15/21 05:21 Labs: Abnormal Lab Results - Last 24 Hours (Table) 07/14/21 07/15/21 07/15/21 Range/Units 12:07 05:21 05:21 WBC 15.0 H 15.4 H (3.8-10.6) k/uL RBC 2.62 L 2.43 L (3.80-5.40) m/uL Hgb 8.2 L 7.5 L (11.4-16.0) gm/dL Hct 26.0 L 24.0 L (34.0-46.0) % Neutrophils # 12.7 H (1.3-7.7) k/uL Chloride 109 H (98-107) mmol/L Glucose 66 L (74-99) mg/dL Calcium 8.0 L (8.4-10.2) mg/dL Assessment and Plan (1) Internal hernia Narrative/Plan: Patient doing well at this time. Continue nothing by mouth for now. Increase activity. Recheck labs tomorrow. Current Visit: Yes Status: Acute Code(s): K45.8 - OTH ABDOMINAL HERNIA WITHOUT OBSTRUCTION OR GANGRENE SNOMED Code(s): 12873177
--- NOTE | 2021-07-15 11:53 | P.PN ---
Subjective This is a 70-year-old female patient with past medical history of dementia, COPD, hypertension, dyslipidemia and chronic lower extremity edema. She is a former smoker. She does not follow regularly with the agency legal counsel. She was brought to the emergency department from [facility] for worsening upper abdominal pain. We were asked to see the patient in consultation for atrial fibrillation, new onset. CT scan on admission showed bowel obstruction versus ileus. She is physically underwent exploratory laparotomy and small bowel resection and repair of incisional hernia. She was initially on Cardizem drip and has been transitioned to oral beta rohit. She is currently maintaining sinus mechanism. Heart rate is currently in the 90s. Heart pressure is stable. Ex temperature over the last 24 hours 100.3F. Echocardiogram with Doppler study this admission showed normal LV systolic function. Laboratory values from yesterday showed a white blood cell count of 16,300 and hemoglobin of 8.6 which is down from 13.3. Potassium 4.1, BUN 20 creatinine 1.03. At the time of my examination she is resting comfortably in bed. She denies any current complaints. She is confused as she says that she ate breakfast this morning however she has been nothing by mouth. 07/15/2020 Pt seen and examined sitting up in bed in no acute distress. She has no symptoms of chest pain and breathing is stable. She denies palpitations. Telemetry reveals she is in SR with heart rate of 107. Currently maintained on amlodipine 5 mg BID, losartan 50 mg daily, pravastatin 20 mg at HS and metoprolol 50 mg BID. Blood pressure 136/82 heart rate 96. She is still NPO and not receiving anti-coagulation. PHYSICAL EXAMINATION: HEENT: Head is atraumatic, normocephalic. Pupils equal, round. Neck is supple. There is no elevated jugular venous pressure. HEART EXAMINATION: Heart sounds regular, S1 and S2 normal. No murmur or gallop heard. CHEST EXAMINATION: Lungs are clear to auscultation and precussion. No chest wall tenderness is noted on palpation or with deep breathing. EXTREMITIES: 2+ peripheral pulses with no evidence of peripheral edema and no calf tenderness noted. Assessment: #1 bowel obstruction, status post exploratory laparotomy with small bowel resection and incisional hernia repair #2 paroxysmal atrial fibrillation, [id number] score 3 #3 hypertension #4 dementia #5 dyslipidemia #6 chronic lower extremity edema Plan: Start Eliquis 5mg BID, spoke with Dr. Ramirez and he is ok with this. Follow CBC in am. Increase beta rohit to 75 mg BID, given an additional 25 mg now. Further recommendations to follow based on clinical course. TOOLING ENGINEERING TECH note has been reviewed, I agree with a documented findings and plan of care. Patient was seen and examined. Objective - Vital Signs Vital signs: Vital Signs Temp 99.4 F 07/15/21 02:00 Pulse 96 07/15/21 02:00 Resp 18 07/15/21 02:00 BP 136/82 07/15/21 02:00 Pulse Ox 97 07/15/21 02:00 Intake & Output 07/14/21 07/15/21 07/15/21 18:59 06:59 18:59 Output Total 950 400 Balance -950 -400 Output: Urine 950 400 Other: Voiding Method Indwelling Catheter Indwelling Catheter - Labs CBC & Chem 7: 07/15/21 05:21 07/15/21 05:21 Labs: Abnormal Lab Results - Last 24 Hours (Table) 07/14/21 07/15/21 07/15/21 Range/Units 12:07 05:21 05:21 WBC 15.0 H 15.4 H (3.8-10.6) k/uL RBC 2.62 L 2.43 L (3.80-5.40) m/uL Hgb 8.2 L 7.5 L (11.4-16.0) gm/dL Hct 26.0 L 24.0 L (34.0-46.0) % Neutrophils # 12.7 H (1.3-7.7) k/uL Chloride 109 H (98-107) mmol/L Glucose 66 L (74-99) mg/dL Calcium 8.0 L (8.4-10.2) mg/dL
[2021-07-15] MEDS: APIXABAN 5 MG TAB PO SCH ×2 (12:41→20:31)
[2021-07-15] MEDS: CYANOCOBALAMIN 500 MCG TAB PO SCH (16:19)
[2021-07-15] MEDS: FOLIC ACID 1 MG TAB PO SCH (16:19)
--- NOTE | 2021-07-15 20:10 | P.PN ---
Progress Note - Text Progress Note Date: 07/15/21 Chief Complaint: Abdominal pain This is a 70-year-old patient, follows with Dr. Sullivan at [facility]. Chronic stable medical conditions include COPD, hypertension, hyperlipidemia, dementia. Patient herself is not able to give much of a history except for abdominal pain. As per the EMS report they will call doubt patient had been complaining of abdominal pain. No fever no chills no nausea vomiting was reported. Patient really cannot tell much. She is brought into the ER. Patient denies any fever and chills. Denies any urinary symptoms. Cannot tell me about her bowel pattern. July 13: ICU: Patient was taken to the OR yesterday by Dr. Valencia and had surgery for strangulate and internal hernia with small bowel obstruction. NG tube to suction in place. On room air. Has an abdominal dressing. Taylor catheter. Elevated shows sinus rhythm with PACs. Pain control. Given Catapres patch for blood pressure. Patient was noted to have bloody ascites. Suspect underlying perforation. Started IV Zosyn. July 14: Nothing by mouth. Laying in bed. IV Zosyn. IV fluids. Low-grade fever. Some abdominal pain. NG tube. July 15: Remains nothing by mouth. Abdominal pain. No BM. IV Zosyn. IV fluids. Does not have NG tube. Active Medications Acetaminophen (Acetaminophen Tab 325 Mg Tab) 650 mg PO Q4H PRN PRN Reason: GENERAL DISCOMFORT Last Admin: 07/15/21 03:55 Dose: 650 mg Documented by: Acetaminophen (Acetaminophen Tab 325 Mg Tab) 650 mg PO BID@0800,1700 [facility] Last Admin: 07/15/21 16:20 Dose: 650 mg Documented by: Acetaminophen/Codeine Phosphate (Acetaminophen-Codeine 300-30mg Tab) 1 each PO Q12H PRN PRN Reason: Pain Last Admin: 07/14/21 20:48 Dose: 1 each Documented by: Amlodipine Besylate (Amlodipine 5 Mg Tab) 5 mg PO BID [facility] Last Admin: 07/15/21 09:29 Dose: 5 mg Documented by: Apixaban (Apixaban 5 Mg Tab) 5 mg PO BID [facility]; Protocol Last Admin: 07/15/21 12:41 Dose: 5 mg Documented by: Cyanocobalamin (Cyanocobalamin 500 Mcg Tab) 500 mcg PO DAILY@1700 [facility] Last Admin: 07/15/21 16:19 Dose: 500 mcg Documented by: Diclofenac Sodium (Diclofenac Sodium Gel 100 Gm Tube) 2 gm TOPICAL QID [facility]; Protocol Last Admin: 07/15/21 17:17 Dose: Not Given Documented by: Ergocalciferol (Ergocalciferol 1,250 Mcg (50,000 Iu) Capsule) 1,250 mcg PO CHICAS@1700 [facility] Famotidine (Famotidine 20 Mg Tab) 20 mg PO DAILY [facility] Last Admin: 07/15/21 09:29 Dose: 20 mg Documented by: Folic Acid (Folic Acid 1 Mg Tab) 1 mg PO DAILY@1700 [facility] Last Admin: 07/15/21 16:19 Dose: 1 mg Documented by: Hydromorphone HCl (Hydromorphone 1 Mg/Ml 1 Ml Syringe) 1 mg IVP Q3HR PRN PRN Reason: Severe Pain Last Admin: 07/12/21 23:21 Dose: 1 mg Documented by: Sodium Chloride (Saline 0.9%) 1,000 mls @ 100 mls/hr IV .Q10H [facility] Last Admin: 07/15/21 16:19 Dose: 100 mls/hr Documented by: Piperacillin Sod/Tazobactam (Sod 3.375 gm/ Sodium Chloride) 100 mls @ 25 mls/hr IVPB Q8HR [facility]; Protocol Last Admin: 07/15/21 16:21 Dose: 25 mls/hr Documented by: Lorazepam (Lorazepam 0.5 Mg Tab) 0.5 mg PO Q6HR PRN PRN Reason: Anxiety Losartan Potassium (Losartan 50 Mg Tab) 50 mg PO DAILY [facility] Last Admin: 07/15/21 09:29 Dose: 50 mg Documented by: Melatonin (Melatonin 3 Mg Tablet) 3 mg PO HS PRN PRN Reason: Insomnia Memantine (Memantine 10 Mg Tab) 10 mg PO BID@0800,1700 [facility] Last Admin: 07/15/21 16:20 Dose: 10 mg Documented by: Metoprolol Tartrate (Metoprolol Tartrate 25 Mg Tab) 75 mg PO Q12H [facility] Naloxone HCl (Naloxone 0.4 Mg/Ml 1 Ml Vial) 0.2 mg IV Q2M PRN PRN Reason: Opioid Reversal Ondansetron HCl (Ondansetron 4 Mg/2 Ml Vial) 4 mg IVP Q8HR PRN PRN Reason: Nausea And Vomiting Pravastatin Sodium (Pravastatin Sodium 20 Mg Tab) 20 mg PO HS@2100 [facility] Last Admin: 07/14/21 20:48 Dose: 20 mg Documented by: Past medical history to include: COPD, hypertension, hyperlipidemia, dementia Social history: Resident at [facility]. Ex-smoker. Physical examination: VITAL SIGNS: 99, 89, 18, 1:30/78, 95% room air GENERAL: , reclining in bed awake, EYES: Pupils equal. Conjunctiva normal. HEENT: External appearance of nose and ears normal, oral cavity dry. NECK: JVD not raised; masses not palpable. HEART: First and second heart sounds are normal; no edema. LUNGS: Respiratory rate normal; decreased breath sounds. ABDOMEN: Soft, some tenderness, no guarding rigidity, liver spleen not palpable, no masses palpable. Dressing over incision. Bowel sounds present PSYCH: able to answer simple questions. MUSCULOSKELETAL:No Clubbing/cyanosis;muscles-grossly intact. Evidence of OA. INVESTIGATIONS, reviewed in the clinical context: July 15: White count 15.4 hemoglobin 7.5 potassium 3.7 creatinine 0.91 July 14: White count 15 hemoglobin 8.2 July 13: White count 16.3 hemoglobin 8.6 platelets 208 potassium 4.1 creatinine 1.03 lactic acid 1.4 White count 12.3 hemoglobin 13.3 platelets 226 sodium 136 potassium 4.4 creatinine 0.8 blood glucose 179 Lactic acid 3.3 then 4.7 total bilirubin 1.2 AST 32 ALT 16 lipase 65 UA:: Leukoesterase negative EKG tracing personally reviewed by me-atrial fibrillation rate 89 Acute abdominal series personally reviewed by me: Check stat x-ray no obvious infiltrate. Dilated bowel appeared to be small 2-D echocardiogram: Mild concentric LVH. EF 50-60% Assessment and plan: -Acute strangulated internal hernia with small bowel obstruction. Status post surgery by Dr. Valencia on July 12. -Bloody ascites notice during surgery. Suspect perforation. Possible secondary peritonitis. IV Zosyn -Acute postprocedure blood loss anemia expected from surgery: Worsening IV Ferrlecit 2 doses. Follow H&H. -Major cognitive impairment likely from Alzheimer's dementia -Obesity BMI 39.5 -IV heparin monitoring: Discontinued Follow PTT -Primary osteoarthritis multiple joints bilaterally Voltaren gel 2 g topical 4 times a day, Tylenol 3 when necessary -Essential hypertension Lopressor 25 mg twice a day. Norvasc 5 mg twice a day -Hyperlipidemia Pravachol 20 mg daily at bedtime -Persistent atrial fibrillation, rate controlled Lopressor 25 mg twice a day Nothing by mouth. IV fluids. By mouth medications.. IV Zosyn. Add IV Flagyl. Follow labs.
[2021-07-15] MEDS: PRAVASTATIN SODIUM 20 MG TAB PO SCH (20:30)
[2021-07-15] MEDS: metroNIDAZOLE-NS PMX 500 MG in SALINE 1 100ML.BAG IVPB SCH (20:31)
[2021-07-15] MEDS: METOPROLOL TARTRATE 25 MG TAB PO SCH (20:31)
[2021-07-15] MEDS: Acetaminophen-Codeine 300-30mg TAB PO PRN (20:32)
[2021-07-16] MEDS: ACETAMINOPHEN TAB 325 MG TAB PO PRN (00:54)
[2021-07-16] MEDS: metroNIDAZOLE-NS PMX 500 MG in SALINE 1 100ML.BAG IVPB SCH ×4 (03:14→19:41)
[2021-07-16] MEDS: Acetaminophen-Codeine 300-30mg TAB PO PRN ×2 (05:23→20:38)
[2021-07-16] MEDS: SODIUM CHLORIDE 0.9% 1,000 ML IV SCH (05:23)
[2021-07-16 05:55] LABS: Basophils % (A) 0 %; Eosinophils # (A) 0.6 k/uL (0-0.7); Eosinophils % (A) 4 %; HCT 25.5 % (34.0-46.0); HGB 8.1 gm/dL (11.4-16.0); Hypochromasia Marked; Lymphocytes # (A) 1.5 k/uL (1.0-4.8); Lymphocytes % (A) 10 %; MCH 31.6 pg (25.0-35.0); MCHC 31.6 g/dL (31.0-37.0); Macrocytosis Slight; Mean Platelet Volume 8.6; Monocytes # (A) 0.8 k/uL (0-1.0); Monocytes % (A) 6 %; Neutrophils # (A) 11.5 k/uL (1.3-7.7); Neutrophils % (A) 78 %; Platelet Count 299 k/uL (150-450); RBC 2.55 m/uL (3.80-5.40); RDW 14.3 % (11.5-15.5); WBC 14.7 k/uL (3.8-10.6)
[2021-07-16 06:08] LABS: African American GFR (CKD) >90 (>60 ml/min/1.73 sqM); Anion Gap 13 mmol/L; Blood Urea Nitrogen 14 mg/dL (7-17); Calcium 8.4 mg/dL (8.4-10.2); Carbon Dioxide 20 mmol/L (22-30); Chloride 109 mmol/L (98-107); Glucose 62 mg/dL (74-99); Non-African American GFR(CKD) 81 (>60 ml/min/1.73 sqM); Potassium 3.9 mmol/L (3.5-5.1); Sodium 142 mmol/L (137-145)
[2021-07-16] MEDS: ACETAMINOPHEN TAB 325 MG TAB PO SCH ×2 (07:54→15:23)
[2021-07-16] MEDS: METOPROLOL TARTRATE 25 MG TAB PO SCH ×2 (07:54→19:42)
[2021-07-16] MEDS: amLODIPine 5 MG TAB PO SCH ×2 (07:55→19:41)
[2021-07-16] MEDS: MEMANTINE 10 MG TAB PO SCH ×2 (07:55→15:23)
[2021-07-16] MEDS: LOSARTAN 50 MG TAB PO SCH (07:55)
[2021-07-16] MEDS: FAMOTIDINE 20 MG TAB PO SCH (07:55)
[2021-07-16] MEDS: DICLOFENAC SODIUM GEL 100 GM TUBE TOPICAL SCH ×5 (07:55→21:03)
[2021-07-16] MEDS: APIXABAN 5 MG TAB PO SCH ×2 (07:55→19:54)
--- NOTE | 2021-07-16 08:59 | P.PN ---
Subjective Progress Note Date: 07/16/21 Principal diagnosis: Internal hernia Patient without new complaints. Mild abdominal pain. No nausea or vomiting. No bowel function thus far. T-max 100. White blood cell count 14.7. Objective - Vital Signs Vital signs: Vital Signs Temp 98.8 F 07/16/21 08:00 Pulse 80 07/16/21 08:00 Resp 16 07/16/21 08:00 BP 165/83 07/16/21 08:00 Pulse Ox 96 07/16/21 08:00 Intake & Output 07/15/21 07/16/21 07/16/21 18:59 06:59 18:59 Intake Total 900 Output Total 700 500 Balance 200 -500 Intake: Intake, IV Titration 900 Amount Piperacillin-Tazobactam 3 100 .375 gm In Sodium Chloride 0.9% 100 ml @ 25 mls/hr IVPB Q8HR [facility] Rx# :[id number] Sodium Chloride 0.9% 1, 800 000 ml @ 100 mls/hr IV . Q10H [facility] Rx#:[id number] Output: Urine 700 500 Other: Voiding Method Indwelling Catheter Indwelling Catheter - Exam Abdomen: Soft, nondistended, incision with 4 separate wick sites draining small amount of serous fluid minimal tenderness - Labs CBC & Chem 7: 07/16/21 04:52 07/16/21 04:52 Labs: Abnormal Lab Results - Last 24 Hours (Table) 07/16/21 07/16/21 Range/Units 04:52 04:52 WBC 14.7 H (3.8-10.6) k/uL RBC 2.55 L (3.80-5.40) m/uL Hgb 8.1 L (11.4-16.0) gm/dL Hct 25.5 L (34.0-46.0) % Neutrophils # 11.5 H (1.3-7.7) k/uL Chloride 109 H (98-107) mmol/L Carbon Dioxide 20 L (22-30) mmol/L Glucose 62 L (74-99) mg/dL Assessment and Plan (1) Internal hernia Narrative/Plan: Patient still not having significant bowel function. Keep nothing by mouth for now. Continue antibiotics. Change christian today. Current Visit: Yes Status: Acute Code(s): K45.8 - OTH ABDOMINAL HERNIA WITHOUT OBSTRUCTION OR GANGRENE SNOMED Code(s): 02293435
[2021-07-16] MEDS: PIPERACILLIN-TAZOBACTAM 3.375 GM in SODIUM CHLORIDE 0.9% 100 ML IVPB SCH ×3 (09:09→23:06)
--- NOTE | 2021-07-16 10:37 | P.PN ---
Subjective This is a 70-year-old female patient with past medical history of dementia, COPD, hypertension, dyslipidemia and chronic lower extremity edema. She is a former smoker. She does not follow regularly with the lead software development engineer. She was brought to the emergency department from [facility] for worsening upper abdominal pain. We were asked to see the patient in consultation for atrial fibrillation, new onset. CT scan on admission showed bowel obstruction versus ileus. She is physically underwent exploratory laparotomy and small bowel resection and repair of incisional hernia. She was initially on Cardizem drip and has been transitioned to oral beta rohit. She is currently maintaining sinus mechanism. Heart rate is currently in the 90s. Heart pressure is stable. Ex temperature over the last 24 hours 100.3F. Echocardiogram with Doppler study this admission showed normal LV systolic function. Laboratory values from yesterday showed a white blood cell count of 16,300 and hemoglobin of 8.6 which is down from 13.3. Potassium 4.1, BUN 20 creatinine 1.03. At the time of my examination she is resting comfortably in bed. She denies any current complaints. She is confused as she says that she ate breakfast this morning however she has been nothing by mouth. 07/16/2021 Pt seen and examined sitting up in bed quite drowsy. She did receive some Ativan per the nurse for agitation through the night. She is maintaining sinus rhythm in the 80s. Eliquis was started yesterday and hemoglobin is stable. Blood pressure 165/83 heart rate 88 afebrile maintaining oxygen saturation on room air. PHYSICAL EXAMINATION: HEENT: Head is atraumatic, normocephalic. Pupils equal, round. Neck is supple. There is no elevated jugular venous pressure. HEART EXAMINATION: Heart sounds regular, S1 and S2 normal. No murmur or gallop heard. CHEST EXAMINATION: Lungs are clear to auscultation and precussion. No chest wall tenderness is noted on palpation or with deep breathing. EXTREMITIES: 2+ peripheral pulses with no evidence of peripheral edema and no calf tenderness noted. Assessment: #1 bowel obstruction, status post exploratory laparotomy with small bowel resection and incisional hernia repair #2 paroxysmal atrial fibrillation, [id number] score 3 #3 hypertension #4 dementia #5 dyslipidemia #6 chronic lower extremity edema Plan: Continue current medical regimen. We will follow along as needed, follow up with upon discharge. ENGINEERING GEOLOGIST note has been reviewed, I agree with a documented findings and plan of care. Patient was seen and examined. Objective - Vital Signs Vital signs: Vital Signs Temp 98.8 F 07/16/21 08:00 Pulse 80 07/16/21 08:00 Resp 16 07/16/21 08:00 BP 165/83 07/16/21 08:00 Pulse Ox 96 07/16/21 08:00 Intake & Output 07/15/21 07/16/21 07/16/21 18:59 06:59 18:59 Intake Total 900 Output Total 700 500 Balance 200 -500 Intake: Intake, IV Titration 900 Amount Piperacillin-Tazobactam 3 100 .375 gm In Sodium Chloride 0.9% 100 ml @ 25 mls/hr IVPB Q8HR [facility] Rx# :[id number] Sodium Chloride 0.9% 1, 800 000 ml @ 100 mls/hr IV . Q10H [facility] Rx#:[id number] Output: Urine 700 500 Other: Voiding Method Indwelling Catheter Indwelling Catheter - Labs CBC & Chem 7: 07/16/21 04:52 07/16/21 04:52 Labs: Abnormal Lab Results - Last 24 Hours (Table) 07/16/21 07/16/21 07/16/21 Range/Units 04:52 04:52 04:52 WBC 14.7 H (3.8-10.6) k/uL RBC 2.55 L (3.80-5.40) m/uL Hgb 8.1 L (11.4-16.0) gm/dL Hct 25.5 L (34.0-46.0) % Neutrophils # 11.5 H (1.3-7.7) k/uL Chloride 109 H (98-107) mmol/L Carbon Dioxide 20 L (22-30) mmol/L Glucose 62 L (74-99) mg/dL Procalcitonin 0.71 H (0.02-0.09) ng/mL
--- NOTE | 2021-07-16 11:17 | P.PN ---
Progress Note - Text Progress Note Date: 07/16/21 Chief Complaint: Abdominal pain This is a 70-year-old patient, follows with Dr. Sullivan at [facility]. Chronic stable medical conditions include COPD, hypertension, hyperlipidemia, dementia. Patient herself is not able to give much of a history except for abdominal pain. As per the EMS report they will call doubt patient had been complaining of abdominal pain. No fever no chills no nausea vomiting was reported. Patient really cannot tell much. She is brought into the ER. Patient denies any fever and chills. Denies any urinary symptoms. Cannot tell me about her bowel pattern. July 13: ICU: Patient was taken to the OR yesterday by Dr. Valencia and had surgery for strangulate and internal hernia with small bowel obstruction. NG tube to suction in place. On room air. Has an abdominal dressing. Taylor catheter. Elevated shows sinus rhythm with PACs. Pain control. Given Catapres patch for blood pressure. Patient was noted to have bloody ascites. Suspect underlying perforation. Started IV Zosyn. July 14: Nothing by mouth. Laying in bed. IV Zosyn. IV fluids. Low-grade fever. Some abdominal pain. NG tube. July 15: Remains nothing by mouth. Abdominal pain. No BM. IV Zosyn. IV fluids. Does not have NG tube. July 16: Remains nothing by mouth. Decrease abdominal pain. No BM or flatus reported. Has bowel sounds. Active Medications Acetaminophen (Acetaminophen Tab 325 Mg Tab) 650 mg PO Q4H PRN PRN Reason: GENERAL DISCOMFORT Last Admin: 07/16/21 00:54 Dose: 650 mg Documented by: Acetaminophen (Acetaminophen Tab 325 Mg Tab) 650 mg PO BID@0800,1700 [facility] Last Admin: 07/16/21 07:54 Dose: 650 mg Documented by: Acetaminophen/Codeine Phosphate (Acetaminophen-Codeine 300-30mg Tab) 1 each PO Q12H PRN PRN Reason: Pain Last Admin: 07/16/21 05:23 Dose: 1 each Documented by: Amlodipine Besylate (Amlodipine 5 Mg Tab) 5 mg PO BID [facility] Last Admin: 07/16/21 07:55 Dose: 5 mg Documented by: Apixaban (Apixaban 5 Mg Tab) 5 mg PO BID [facility]; Protocol Last Admin: 07/16/21 07:55 Dose: 5 mg Documented by: Cyanocobalamin (Cyanocobalamin 500 Mcg Tab) 500 mcg PO DAILY@1700 [facility] Last Admin: 07/15/21 16:19 Dose: 500 mcg Documented by: Diclofenac Sodium (Diclofenac Sodium Gel 100 Gm Tube) 2 gm TOPICAL QID [facility]; Protocol Last Admin: 07/16/21 07:55 Dose: 2 gm Documented by: Ergocalciferol (Ergocalciferol 1,250 Mcg (50,000 Iu) Capsule) 1,250 mcg PO CHICAS@1700 [facility] Famotidine (Famotidine 20 Mg Tab) 20 mg PO DAILY [facility] Last Admin: 07/16/21 07:55 Dose: 20 mg Documented by: Folic Acid (Folic Acid 1 Mg Tab) 1 mg PO DAILY@1700 [facility] Last Admin: 07/15/21 16:19 Dose: 1 mg Documented by: Hydromorphone HCl (Hydromorphone 1 Mg/Ml 1 Ml Syringe) 1 mg IVP Q3HR PRN PRN Reason: Severe Pain Last Admin: 07/12/21 23:21 Dose: 1 mg Documented by: Sodium Chloride (Saline 0.9%) 1,000 mls @ 100 mls/hr IV .Q10H [facility] Last Admin: 07/16/21 05:23 Dose: 100 mls/hr Documented by: Piperacillin Sod/Tazobactam (Sod 3.375 gm/ Sodium Chloride) 100 mls @ 25 mls/hr IVPB Q8HR [facility]; Protocol Last Admin: 07/16/21 09:09 Dose: 25 mls/hr Documented by: Metronidazole 500 mg/ IV (Solution) 100 mls @ 100 mls/hr IVPB Q6H [facility]; Protocol Last Admin: 07/16/21 07:53 Dose: 100 mls/hr Documented by: Lorazepam (Lorazepam 0.5 Mg Tab) 0.5 mg PO Q6HR PRN PRN Reason: Anxiety Last Admin: 07/16/21 05:26 Dose: 0.5 mg Documented by: Losartan Potassium (Losartan 50 Mg Tab) 50 mg PO DAILY [facility] Last Admin: 07/16/21 07:55 Dose: 50 mg Documented by: Melatonin (Melatonin 3 Mg Tablet) 3 mg PO HS PRN PRN Reason: Insomnia Memantine (Memantine 10 Mg Tab) 10 mg PO BID@0800,1700 [facility] Last Admin: 07/16/21 07:55 Dose: 10 mg Documented by: Metoprolol Tartrate (Metoprolol Tartrate 25 Mg Tab) 75 mg PO Q12H [facility] Last Admin: 07/16/21 07:54 Dose: 75 mg Documented by: Naloxone HCl (Naloxone 0.4 Mg/Ml 1 Ml Vial) 0.2 mg IV Q2M PRN PRN Reason: Opioid Reversal Ondansetron HCl (Ondansetron 4 Mg/2 Ml Vial) 4 mg IVP Q8HR PRN PRN Reason: Nausea And Vomiting Pravastatin Sodium (Pravastatin Sodium 20 Mg Tab) 20 mg PO HS@2100 [facility] Last Admin: 07/15/21 20:30 Dose: 20 mg Documented by: Past medical history to include: COPD, hypertension, hyperlipidemia, dementia Social history: Resident at [facility]. Ex-smoker. Physical examination: VITAL SIGNS: 98.8, 80, 16, 1 6583, 96% room air GENERAL: , reclining in bed awake, EYES: Pupils equal. Conjunctiva normal. HEENT: External appearance of nose and ears normal, oral cavity dry. NECK: JVD not raised; masses not palpable. HEART: First and second heart sounds are normal; no edema. LUNGS: Respiratory rate normal; decreased breath sounds. ABDOMEN: Soft, some tenderness, no guarding rigidity, liver spleen not palpable, no masses palpable. Dressing over incision. Bowel sounds present PSYCH: able to answer simple questions. MUSCULOSKELETAL:No Clubbing/cyanosis;muscles-grossly intact. Evidence of OA. INVESTIGATIONS, reviewed in the clinical context: July 16: White count 14.7 hemoglobin 8.1 platelets 299 potassium 3.9 creatinine 0.75 pro-calcitonin 0.71 July 15: White count 15.4 hemoglobin 7.5 potassium 3.7 creatinine 0.91 July 14: White count 15 hemoglobin 8.2 July 13: White count 16.3 hemoglobin 8.6 platelets 208 potassium 4.1 creatinine 1.03 lactic acid 1.4 White count 12.3 hemoglobin 13.3 platelets 226 sodium 136 potassium 4.4 creatinine 0.8 blood glucose 179 Lactic acid 3.3 then 4.7 total bilirubin 1.2 AST 32 ALT 16 lipase 65 UA:: Leukoesterase negative EKG tracing personally reviewed by me-atrial fibrillation rate 89 Acute abdominal series personally reviewed by me: Check stat x-ray no obvious infiltrate. Dilated bowel appeared to be small 2-D echocardiogram: Mild concentric LVH. EF 50-60% Assessment and plan: -Acute strangulated internal hernia with small bowel obstruction. Status post surgery by Dr. Valencia on July 12. -Bloody ascites notice during surgery. Suspect perforation. Possible secondary peritonitis. IV Zosyn. IV Flagyl -Acute postprocedure blood loss anemia expected from surgery: IV Ferrlecit 2 doses. Follow H&H. -Major cognitive impairment likely from Alzheimer's dementia -Obesity BMI 39.5 -IV heparin monitoring: Discontinued Follow PTT -Primary osteoarthritis multiple joints bilaterally Voltaren gel 2 g topical 4 times a day, Tylenol 3 when necessary -Essential hypertension Lopressor 25 mg twice a day. Norvasc 5 mg twice a day -Hyperlipidemia Pravachol 20 mg daily at bedtime -Persistent atrial fibrillation, rate controlled Lopressor 25 mg twice a day Nothing by mouth. IV fluids. Oral medications.. IV Zosyn. / IV Flagyl. Follow labs and with surgery.
[2021-07-16] MEDS: DEXTROSE 5%-0.9% NACL 1,000 ML IV SCH ×2 (12:12→21:28)
[2021-07-16] MEDS: DEXTROSE 4 GM CHEWABLE PO SCH ×4 (12:12→20:58)
[2021-07-16] MEDS: FOLIC ACID 1 MG TAB PO SCH (15:23)
[2021-07-16] MEDS: CYANOCOBALAMIN 500 MCG TAB PO SCH (15:23)
[2021-07-16] MEDS ORDERED: ERGOCALCIFEROL 1,250 MCG (50,000 IU) CAPSULE PO SCH (17:00)
[2021-07-16] MEDS: PRAVASTATIN SODIUM 20 MG TAB PO SCH (19:42)
[2021-07-16] MEDS: MELATONIN 3 MG TABLET PO PRN (20:38)
[2021-07-16 21:08] LABS: Glucose,Whole Blood 116 mg/dL (75-99)
[2021-07-17] MEDS: metroNIDAZOLE-NS PMX 500 MG in SALINE 1 100ML.BAG IVPB SCH ×4 (02:39→21:32)
[2021-07-17] MEDS: Acetaminophen-Codeine 300-30mg TAB PO PRN (05:58)
[2021-07-17] MEDS: DEXTROSE 5%-0.9% NACL 1,000 ML IV SCH ×2 (07:54→17:22)
[2021-07-17] MEDS: METOPROLOL TARTRATE 25 MG TAB PO SCH (08:32)
[2021-07-17] MEDS: ACETAMINOPHEN TAB 325 MG TAB PO SCH ×2 (08:32→17:12)
[2021-07-17] MEDS: APIXABAN 5 MG TAB PO SCH ×2 (08:33→21:32)
[2021-07-17] MEDS: MEMANTINE 10 MG TAB PO SCH ×2 (08:33→17:12)
[2021-07-17] MEDS: FAMOTIDINE 20 MG TAB PO SCH (08:33)
[2021-07-17] MEDS: LOSARTAN 50 MG TAB PO SCH (08:33)
[2021-07-17] MEDS: amLODIPine 5 MG TAB PO SCH ×2 (08:34→21:32)
[2021-07-17] MEDS: PIPERACILLIN-TAZOBACTAM 3.375 GM in SODIUM CHLORIDE 0.9% 100 ML IVPB SCH ×2 (08:34→17:11)
[2021-07-17] MEDS: DEXTROSE 4 GM CHEWABLE PO SCH ×4 (08:35→23:47)
[2021-07-17] MEDS: DICLOFENAC SODIUM GEL 100 GM TUBE TOPICAL SCH ×4 (08:37→23:47)
--- NOTE | 2021-07-17 11:19 | P.PN ---
Subjective Progress Note Date: 07/17/21 CHIEF COMPLAINT: Small bowel obstruction HISTORY OF PRESENT ILLNESS: Patient is postop day #5 status post exploratory laparotomy, small bowel resection and repair of incisional hernia for strangulated internal hernia with small bowel obstruction. Patient is currently on the regular medical floor. She is lying in bed comfortably. Denies any abdominal pain. Denies any nausea or vomiting. Denies any bowel activity. Low-grade temp of 99.1. She remains nothing by mouth except for ice chips. Patient's Eliquis has been restarted for her A. fib. Patient seen and examined with Dr. washburn PHYSICAL EXAM: VITAL SIGNS: Reviewed. GENERAL: Well-developed in no acute distress. HEENT: No sclera icterus. Extraocular movements grossly intact. Moist buccal mucosa. Head is atraumatic, normocephalic. ABDOMEN: Soft. Nondistended. Nontender. Incision site with 4 christian. small amount of serous drainage on bandage NEUROLOGIC: Patient is awake and alert with some confusion ASSESSMENT: 1. Strangulated internal hernia with small bowel obstruction status post laparotomy, small bowel resection and repair of incisional hernia 2. Atrial fibrillation PLAN: -Encouraged patient to increase activity level -Discussed with nursing staff to have patients at bedside chair -Patient scheduled to work with PT OT today -Incentive spirometer ordered -Continue IV fluids -Continue supportive care -Continue pain medication as needed Physician Generator Assembler note has been reviewed by physician. Signing provider agrees with the documented findings, assessment, and plan of care. Objective - Vital Signs Vital signs: Vital Signs Temp 99.2 F 07/17/21 08:00 Pulse 56 L 07/17/21 08:00 Resp 14 07/17/21 08:00 BP 155/76 07/17/21 08:00 Pulse Ox 96 07/17/21 08:00 Intake & Output 07/16/21 07/17/21 07/17/21 18:59 06:59 18:59 Intake Total 1000 300 Output Total 550 300 Balance 450 -300 300 Intake: Intake, IV Titration 1000 300 Amount Dextrose 5%-0.9% NaCl 1, 800 100 000 ml @ 100 mls/hr IV . Q10H [facility] Rx#:[id number] Piperacillin-Tazobactam 3 100 100 .375 gm In Sodium Chloride 0.9% 100 ml @ 25 mls/hr IVPB Q8HR [facility] Rx# :[id number] metroNIDAZOLE-NS PMX 500 100 100 mg In Saline 1 100ml.bag @ 100 mls/hr IVPB Q6H [facility] Rx#:[id number] Output: Urine 550 300 Other: Voiding Method Indwelling Catheter Indwelling Catheter - Labs CBC & Chem 7: 07/16/21 04:52 07/16/21 04:52 Labs: Abnormal Lab Results - Last 24 Hours (Table) 07/16/21 Range/Units 21:06 POC Glucose (mg/dL) 116 H (75-99) mg/dL
[2021-07-17 15:08] VITALS: BMI 45.7
[2021-07-17] MEDS: CYANOCOBALAMIN 500 MCG TAB PO SCH (17:12)
[2021-07-17] MEDS: FOLIC ACID 1 MG TAB PO SCH (17:12)
--- NOTE | 2021-07-17 20:42 | P.PN ---
Progress Note - Text Progress Note Date: 07/17/21 Chief Complaint: Abdominal pain This is a 70-year-old patient, follows with Dr. Sullivan at [facility]. Chronic stable medical conditions include COPD, hypertension, hyperlipidemia, dementia. Patient herself is not able to give much of a history except for abdominal pain. As per the EMS report they will call doubt patient had been complaining of abdominal pain. No fever no chills no nausea vomiting was reported. Patient really cannot tell much. She is brought into the ER. Patient denies any fever and chills. Denies any urinary symptoms. Cannot tell me about her bowel pattern. July 13: ICU: Patient was taken to the OR yesterday by Dr. Valencia and had surgery for strangulate and internal hernia with small bowel obstruction. NG tube to suction in place. On room air. Has an abdominal dressing. Taylor catheter. Elevated shows sinus rhythm with PACs. Pain control. Given Catapres patch for blood pressure. Patient was noted to have bloody ascites. Suspect underlying perforation. Started IV Zosyn. July 14: Nothing by mouth. Laying in bed. IV Zosyn. IV fluids. Low-grade fever. Some abdominal pain. NG tube. July 15: Remains nothing by mouth. Abdominal pain. No BM. IV Zosyn. IV fluids. Does not have NG tube. July 16: Remains nothing by mouth. Decrease abdominal pain. No BM or flatus reported. Has bowel sounds. July 17: Seen by PT. Max assist. The was able to stand. Remains nothing by mouth. Atrial fibrillation rate controlled Active Medications Acetaminophen (Acetaminophen Tab 325 Mg Tab) 650 mg PO Q4H PRN PRN Reason: GENERAL DISCOMFORT Last Admin: 07/16/21 00:54 Dose: 650 mg Documented by: Acetaminophen (Acetaminophen Tab 325 Mg Tab) 650 mg PO BID@0800,1700 [facility] Last Admin: 07/17/21 17:12 Dose: 650 mg Documented by: Acetaminophen/Codeine Phosphate (Acetaminophen-Codeine 300-30mg Tab) 1 each PO Q12H PRN PRN Reason: Pain Last Admin: 07/17/21 05:58 Dose: 1 each Documented by: Amlodipine Besylate (Amlodipine 5 Mg Tab) 5 mg PO BID [facility] Last Admin: 07/17/21 08:34 Dose: 5 mg Documented by: Apixaban (Apixaban 5 Mg Tab) 5 mg PO BID [facility]; Protocol Last Admin: 07/17/21 08:33 Dose: 5 mg Documented by: Cyanocobalamin (Cyanocobalamin 500 Mcg Tab) 500 mcg PO DAILY@1700 [facility] Last Admin: 07/17/21 17:12 Dose: 500 mcg Documented by: Diclofenac Sodium (Diclofenac Sodium Gel 100 Gm Tube) 2 gm TOPICAL QID [facility]; Protocol Last Admin: 07/17/21 18:17 Dose: Not Given Documented by: Ergocalciferol (Ergocalciferol 1,250 Mcg (50,000 Iu) Capsule) 1,250 mcg PO CHICAS@1700 [facility] Last Admin: 07/16/21 15:23 Dose: 1,250 mcg Documented by: Famotidine (Famotidine 20 Mg Tab) 20 mg PO DAILY [facility] Last Admin: 07/17/21 08:33 Dose: 20 mg Documented by: Folic Acid (Folic Acid 1 Mg Tab) 1 mg PO DAILY@1700 [facility] Last Admin: 07/17/21 17:12 Dose: 1 mg Documented by: Glucose (Dextrose 4 Gm Chewable) 4 gm PO QID [facility] Last Admin: 07/17/21 18:17 Dose: 4 gm Documented by: Hydromorphone HCl (Hydromorphone 1 Mg/Ml 1 Ml Syringe) 1 mg IVP Q3HR PRN PRN Reason: Severe Pain Last Admin: 07/12/21 23:21 Dose: 1 mg Documented by: Piperacillin Sod/Tazobactam (Sod 3.375 gm/ Sodium Chloride) 100 mls @ 25 mls/hr IVPB Q8HR [facility]; Protocol Last Admin: 07/17/21 17:11 Dose: 25 mls/hr Documented by: Metronidazole 500 mg/ IV (Solution) 100 mls @ 100 mls/hr IVPB Q6H [facility]; Protocol Last Admin: 07/17/21 15:59 Dose: 100 mls/hr Documented by: Dextrose/Sodium Chloride (Dextrose 5%-Ns Iv Soln) 1,000 mls @ 100 mls/hr IV .Q10H [facility] Last Admin: 07/17/21 17:22 Dose: 100 mls/hr Documented by: Lorazepam (Lorazepam 0.5 Mg Tab) 0.5 mg PO Q6HR PRN PRN Reason: Anxiety Last Admin: 07/16/21 05:26 Dose: 0.5 mg Documented by: Losartan Potassium (Losartan 50 Mg Tab) 50 mg PO DAILY [facility] Last Admin: 07/17/21 08:33 Dose: 50 mg Documented by: Melatonin (Melatonin 3 Mg Tablet) 3 mg PO HS PRN PRN Reason: Insomnia Last Admin: 07/16/21 20:38 Dose: 3 mg Documented by: Memantine (Memantine 10 Mg Tab) 10 mg PO BID@0800,1700 [facility] Last Admin: 07/17/21 17:12 Dose: 10 mg Documented by: Metoprolol Tartrate (Metoprolol Tartrate 50 Mg Tab) 50 mg PO Q12H [facility] Naloxone HCl (Naloxone 0.4 Mg/Ml 1 Ml Vial) 0.2 mg IV Q2M PRN PRN Reason: Opioid Reversal Ondansetron HCl (Ondansetron 4 Mg/2 Ml Vial) 4 mg IVP Q8HR PRN PRN Reason: Nausea And Vomiting Pravastatin Sodium (Pravastatin Sodium 20 Mg Tab) 20 mg PO HS@2100 [facility] Last Admin: 07/16/21 19:42 Dose: 20 mg Documented by: Past medical history to include: COPD, hypertension, hyperlipidemia, dementia Social history: Resident at [facility]. Ex-smoker. Physical examination: VITAL SIGNS: 97.9, 88, 17, 109/59, 99% room air GENERAL: , reclining in bed awake, EYES: Pupils equal. Conjunctiva normal. HEENT: External appearance of nose and ears normal, oral cavity dry. NECK: JVD not raised; masses not palpable. HEART: Heart sounds irregular no edema. LUNGS: Respiratory rate normal; decreased breath sounds. ABDOMEN: Soft, no tenderness, no guarding rigidity, liver spleen not palpable, no masses palpable. Dressing over incision. Bowel sounds present PSYCH: able to answer simple questions. MUSCULOSKELETAL:No Clubbing/cyanosis;muscles-grossly intact. Evidence of OA. INVESTIGATIONS, reviewed in the clinical context: July 16: White count 14.7 hemoglobin 8.1 platelets 299 potassium 3.9 creatinine 0.75 pro-calcitonin 0.71 July 15: White count 15.4 hemoglobin 7.5 potassium 3.7 creatinine 0.91 June 15: White count 15 hemoglobin 8.2 June 14: White count 16.3 hemoglobin 8.6 platelets 208 potassium 4.1 creatinine 1.03 lactic acid 1.4 White count 12.3 hemoglobin 13.3 platelets 226 sodium 136 potassium 4.4 creatinine 0.8 blood glucose 179 Lactic acid 3.3 then 4.7 total bilirubin 1.2 AST 32 ALT 16 lipase 65 UA:: Leukoesterase negative EKG tracing personally reviewed by me-atrial fibrillation rate 89 Acute abdominal series personally reviewed by me: Check stat x-ray no obvious infiltrate. Dilated bowel appeared to be small 2-D echocardiogram: Mild concentric LVH. EF 50-60% Assessment and plan: -Acute strangulated internal hernia with small bowel obstruction. Status post surgery by Dr. Valencia on July 12. Remains nothing by mouth -Bloody ascites notice during surgery. Suspect perforation. Possible secondary peritonitis. IV Zosyn. IV Flagyl -Acute postprocedure blood loss anemia expected from surgery: IV Ferrlecit 2 doses. Follow H&H. -Major cognitive impairment likely from Alzheimer's dementia -Obesity BMI 39.5 -IV heparin monitoring: Discontinued Follow PTT -Primary osteoarthritis multiple joints bilaterally Voltaren gel 2 g topical 4 times a day, Tylenol 3 when necessary -Essential hypertension Lopressor 25 mg twice a day. Norvasc 5 mg twice a day -Hyperlipidemia Pravachol 20 mg daily at bedtime -Persistent atrial fibrillation, rate controlled Lopressor 25 mg twice a day Nothing by mouth. IV fluids. Oral medications.. IV Zosyn. / IV Flagyl. Follow with PT OT.
[2021-07-17] MEDS: METOPROLOL TARTRATE 50 MG TAB PO SCH (21:27)
[2021-07-18] MEDS: PIPERACILLIN-TAZOBACTAM 3.375 GM in SODIUM CHLORIDE 0.9% 100 ML IVPB SCH ×4 (00:31→23:21)
[2021-07-18] MEDS: metroNIDAZOLE-NS PMX 500 MG in SALINE 1 100ML.BAG IVPB SCH ×4 (03:59→20:20)
[2021-07-18] MEDS: DEXTROSE 5%-0.9% NACL 1,000 ML IV SCH ×3 (04:02→23:21)
[2021-07-18 06:04] LABS: Basophils % (A) 0 %; Eosinophils # (A) 0.6 k/uL (0-0.7); Eosinophils % (A) 4 %; HCT 27.8 % (34.0-46.0); HGB 8.4 gm/dL (11.4-16.0); Hypochromasia Marked; Lymphocytes # (A) 1.1 k/uL (1.0-4.8); Lymphocytes % (A) 9 %; MCH 30.8 pg (25.0-35.0); MCHC 30.2 g/dL (31.0-37.0); MCV 101.8 fL (80.0-100.0); Macrocytosis Slight; Mean Platelet Volume 8.2; Monocytes # (A) 0.7 k/uL (0-1.0); Monocytes % (A) 5 %; Neutrophils % (A) 80 %; Platelet Count 346 k/uL (150-450); RBC 2.73 m/uL (3.80-5.40); RDW 14.6 % (11.5-15.5); WBC 12.5 k/uL (3.8-10.6)
[2021-07-18] MEDS: ACETAMINOPHEN TAB 325 MG TAB PO SCH ×2 (09:20→16:46)
[2021-07-18] MEDS: APIXABAN 5 MG TAB PO SCH ×2 (09:20→20:20)
[2021-07-18] MEDS: FAMOTIDINE 20 MG TAB PO SCH (09:21)
[2021-07-18] MEDS: DEXTROSE 4 GM CHEWABLE PO SCH ×4 (09:21→20:20)
[2021-07-18] MEDS: METOPROLOL TARTRATE 50 MG TAB PO SCH ×2 (09:21→20:30)
[2021-07-18] MEDS: LOSARTAN 50 MG TAB PO SCH (09:21)
[2021-07-18] MEDS: MEMANTINE 10 MG TAB PO SCH ×2 (09:21→16:46)
[2021-07-18] MEDS: amLODIPine 5 MG TAB PO SCH ×2 (09:21→20:30)
[2021-07-18] MEDS: DICLOFENAC SODIUM GEL 100 GM TUBE TOPICAL SCH ×2 (09:44→11:52)
[2021-07-18] MEDS ORDERED: SODIUM CHLORIDE 0.9% 1,000 ML IV SCH (10:15)
[2021-07-18] MEDS ORDERED: DICLOFENAC SODIUM GEL 100 GM TUBE TOPICAL PRN (11:54)
--- NOTE | 2021-07-18 13:39 | P.PN ---
Progress Note - Text Progress Note Date: 07/18/21 Chief Complaint: Abdominal pain This is a 70-year-old patient, follows with Dr. Sullivan at [facility]. Chronic stable medical conditions include COPD, hypertension, hyperlipidemia, dementia. Patient herself is not able to give much of a history except for abdominal pain. As per the EMS report they will call doubt patient had been complaining of abdominal pain. No fever no chills no nausea vomiting was reported. Patient really cannot tell much. She is brought into the ER. Patient denies any fever and chills. Denies any urinary symptoms. Cannot tell me about her bowel pattern. July 13: ICU: Patient was taken to the OR yesterday by Dr. Valencia and had surgery for strangulate and internal hernia with small bowel obstruction. NG tube to suction in place. On room air. Has an abdominal dressing. Taylor catheter. Elevated shows sinus rhythm with PACs. Pain control. Given Catapres patch for blood pressure. Patient was noted to have bloody ascites. Suspect underlying perforation. Started IV Zosyn. July 14: Nothing by mouth. Laying in bed. IV Zosyn. IV fluids. Low-grade fever. Some abdominal pain. NG tube. July 15: Remains nothing by mouth. Abdominal pain. No BM. IV Zosyn. IV fluids. Does not have NG tube. July 16: Remains nothing by mouth. Decrease abdominal pain. No BM or flatus reported. Has bowel sounds. July 17: Seen by PT. Max assist. The was able to stand. Remains nothing by mouth. Atrial fibrillation rate controlled July 18: Sitting up that encounter. Started on clear liquids. Had a small BM. Abdominal pain control. Sinus rhythm Active Medications Acetaminophen (Acetaminophen Tab 325 Mg Tab) 650 mg PO Q4H PRN PRN Reason: GENERAL DISCOMFORT Last Admin: 07/16/21 00:54 Dose: 650 mg Documented by: Acetaminophen (Acetaminophen Tab 325 Mg Tab) 650 mg PO BID@0800,1700 [facility] Last Admin: 07/18/21 09:20 Dose: 650 mg Documented by: Acetaminophen/Codeine Phosphate (Acetaminophen-Codeine 300-30mg Tab) 1 each PO Q12H PRN PRN Reason: Pain Last Admin: 07/17/21 05:58 Dose: 1 each Documented by: Amlodipine Besylate (Amlodipine 5 Mg Tab) 5 mg PO BID [facility] Last Admin: 07/18/21 09:21 Dose: 5 mg Documented by: Apixaban (Apixaban 5 Mg Tab) 5 mg PO BID [facility]; Protocol Last Admin: 07/18/21 09:20 Dose: 5 mg Documented by: Cyanocobalamin (Cyanocobalamin 500 Mcg Tab) 500 mcg PO DAILY@1700 [facility] Last Admin: 07/17/21 17:12 Dose: 500 mcg Documented by: Diclofenac Sodium (Diclofenac Sodium Gel 100 Gm Tube) 2 gm TOPICAL QID [facility]; Protocol PRN Reason: Pain Ergocalciferol (Ergocalciferol 1,250 Mcg (50,000 Iu) Capsule) 1,250 mcg PO CHICAS@1700 [facility] Last Admin: 07/16/21 15:23 Dose: 1,250 mcg Documented by: Famotidine (Famotidine 20 Mg Tab) 20 mg PO DAILY [facility] Last Admin: 07/18/21 09:21 Dose: 20 mg Documented by: Folic Acid (Folic Acid 1 Mg Tab) 1 mg PO DAILY@1700 [facility] Last Admin: 07/17/21 17:12 Dose: 1 mg Documented by: Glucose (Dextrose 4 Gm Chewable) 4 gm PO QID [facility] Last Admin: 07/18/21 11:52 Dose: Not Given Documented by: Piperacillin Sod/Tazobactam (Sod 3.375 gm/ Sodium Chloride) 100 mls @ 25 mls/hr IVPB Q8HR [facility]; Protocol Last Admin: 07/18/21 09:42 Dose: 25 mls/hr Documented by: Metronidazole 500 mg/ IV (Solution) 100 mls @ 100 mls/hr IVPB Q6H [facility]; Protocol Last Admin: 07/18/21 09:21 Dose: 100 mls/hr Documented by: Dextrose/Sodium Chloride (Dextrose 5%-Ns Iv Soln) 1,000 mls @ 100 mls/hr IV .Q10H [facility] Last Admin: 07/18/21 11:53 Dose: Not Given Documented by: Lorazepam (Lorazepam 0.5 Mg Tab) 0.5 mg PO Q6HR PRN PRN Reason: Anxiety Last Admin: 07/16/21 05:26 Dose: 0.5 mg Documented by: Losartan Potassium (Losartan 50 Mg Tab) 50 mg PO DAILY [facility] Last Admin: 07/18/21 09:21 Dose: 50 mg Documented by: Melatonin (Melatonin 3 Mg Tablet) 3 mg PO HS PRN PRN Reason: Insomnia Last Admin: 07/16/21 20:38 Dose: 3 mg Documented by: Memantine (Memantine 10 Mg Tab) 10 mg PO BID@0800,1700 [facility] Last Admin: 07/18/21 09:21 Dose: 10 mg Documented by: Metoprolol Tartrate (Metoprolol Tartrate 50 Mg Tab) 50 mg PO Q12H [facility] Last Admin: 07/18/21 09:21 Dose: 50 mg Documented by: Naloxone HCl (Naloxone 0.4 Mg/Ml 1 Ml Vial) 0.2 mg IV Q2M PRN PRN Reason: Opioid Reversal Ondansetron HCl (Ondansetron 4 Mg/2 Ml Vial) 4 mg IVP Q8HR PRN PRN Reason: Nausea And Vomiting Pravastatin Sodium (Pravastatin Sodium 20 Mg Tab) 20 mg PO HS@2100 [facility] Last Admin: 07/16/21 19:42 Dose: 20 mg Documented by: Past medical history to include: COPD, hypertension, hyperlipidemia, dementia Social history: Resident at [facility]. Ex-smoker. Physical examination: VITAL SIGNS: 38.4, 94, 16, 135-76, 94% room air GENERAL: In a trochanter, awake, watching TV EYES: Pupils equal. Conjunctiva normal. HEENT: External appearance of nose and ears normal, oral cavity dry. NECK: JVD not raised; masses not palpable. HEART: First seconds are normal mild edema. LUNGS: Respiratory rate normal; decreased breath sounds. ABDOMEN: Soft, no tenderness, no guarding rigidity, liver spleen not palpable, no masses palpable. Dressing over incision. Bowel sounds present PSYCH: able to answer simple questions. MUSCULOSKELETAL:No Clubbing/cyanosis;muscles-grossly intact. Evidence of OA. INVESTIGATIONS, reviewed in the clinical context: July 18: White count 12.5 hemoglobin 8.4 July 16: White count 14.7 hemoglobin 8.1 platelets 299 potassium 3.9 creatinine 0.75 pro-calcitonin 0.71 July 15: White count 15.4 hemoglobin 7.5 potassium 3.7 creatinine 0.91 July 14: White count 15 hemoglobin 8.2 June 14: White count 16.3 hemoglobin 8.6 platelets 208 potassium 4.1 creatinine 1.03 lactic acid 1.4 White count 12.3 hemoglobin 13.3 platelets 226 sodium 136 potassium 4.4 creatinine 0.8 blood glucose 179 Lactic acid 3.3 then 4.7 total bilirubin 1.2 AST 32 ALT 16 lipase 65 UA:: Leukoesterase negative EKG tracing personally reviewed by me-atrial fibrillation rate 89 Acute abdominal series personally reviewed by me: Check stat x-ray no obvious infiltrate. Dilated bowel appeared to be small 2-D echocardiogram: Mild concentric LVH. EF 50-60% Assessment and plan: -Acute strangulated internal hernia with small bowel obstruction. Status post surgery by Dr. Valencia on July 12. Started on clear liquids -Bloody ascites notice during surgery. Suspect perforation. Possible secondary peritonitis. IV Zosyn. IV Flagyl -Acute postprocedure blood loss anemia expected from surgery: IV Ferrlecit 2 doses. Follow H&H. -Major cognitive impairment likely from Alzheimer's dementia -Obesity BMI 39.5 -IV heparin monitoring: Discontinued Follow PTT -Primary osteoarthritis multiple joints bilaterally Voltaren gel 2 g topical 4 times a day, Tylenol 3 when necessary -Essential hypertension Lopressor 25 mg twice a day. Norvasc 5 mg twice a day -Hyperlipidemia Pravachol 20 mg daily at bedtime -Paroxysmal atrial fibrillation, currently in sinus rhythm Lopressor 25 mg twice a day Clear liquids. IV fluids. Oral medications.. IV Zosyn. / IV Flagyl. Follow with surgery
--- NOTE | 2021-07-18 14:49 | P.PN ---
Subjective Progress Note Date: 07/18/21 CHIEF COMPLAINT: Small bowel obstruction HISTORY OF PRESENT ILLNESS: Patient is postop day #6 status post exploratory laparotomy, small bowel resection and repair of incisional hernia for strangulated internal hernia with small bowel obstruction. Patient is sitting up in bedside chair. She reports that her pain is okay. Denies any nausea or vomiting. She did require to be straight cathed this morning. And otherwise has had no further issues with urinary retention. She's afebrile. White count trending down from 14.7-12.5 hemoglobin 8.1 up to 8.4. She did have a small bowel movement. Patient seen and examined with Dr. washburn PHYSICAL EXAM: VITAL SIGNS: Reviewed. GENERAL: Well-developed in no acute distress. HEENT: No sclera icterus. Extraocular movements grossly intact. Moist buccal mucosa. Head is atraumatic, normocephalic. ABDOMEN: Soft. Nondistended. Nontender. Incision site with 4 christian. Dressing clean dry and intact NEUROLOGIC: Patient is awake and alert with confusion ASSESSMENT: 1. Strangulated internal hernia with small bowel obstruction status post laparotomy, small bowel resection and repair of incisional hernia 2. Atrial fibrillation PLAN: -Start clear liquid diet -Consult to social work for possible ECF placement -Encouraged patient to increase activity level -Incentive spirometer ordered -Continue IV fluids -Continue supportive care -Continue pain medication as needed -DVT prophylaxis Tammie Physician Sterile Process Coordinator note has been reviewed by physician. Signing provider agrees with the documented findings, assessment, and plan of care. Objective - Vital Signs Vital signs: Vital Signs Temp 98.4 F 07/18/21 06:50 Pulse 94 07/18/21 06:50 Resp 16 07/18/21 06:50 BP 135/76 07/18/21 06:50 Pulse Ox 94 L 07/18/21 06:50 Intake & Output 07/17/21 07/18/21 07/18/21 18:59 06:59 18:59 Intake Total 1250 Output Total 1451 450 Balance -201 -450 Weight 120.8 kg Intake: Intake, IV Titration 1200 Amount Dextrose 5%-0.9% NaCl 1, 800 000 ml @ 100 mls/hr IV . Q10H [facility] Rx#:[id number] Piperacillin-Tazobactam 3 200 .375 gm In Sodium Chloride 0.9% 100 ml @ 25 mls/hr IVPB Q8HR [facility] Rx# :[id number] metroNIDAZOLE-NS PMX 500 200 mg In Saline 1 100ml.bag @ 100 mls/hr IVPB Q6H [facility] Rx#:[id number] Oral 50 Output: Urine 1080 450 Straight 350 Post Void Residual 371 Other: Voiding Method Indwelling Catheter Indwelling Catheter # Voids 1 # Bowel Movements 1 - Labs CBC & Chem 7: 07/18/21 04:57 07/16/21 04:52 Labs: Abnormal Lab Results - Last 24 Hours (Table) 07/18/21 Range/Units 04:57 WBC 12.5 H (3.8-10.6) k/uL RBC 2.73 L (3.80-5.40) m/uL Hgb 8.4 L (11.4-16.0) gm/dL Hct 27.8 L (34.0-46.0) % MCV 101.8 H (80.0-100.0) fL MCHC 30.2 L (31.0-37.0) g/dL Neutrophils # 10.0 H (1.3-7.7) k/uL
[2021-07-18] MEDS: CYANOCOBALAMIN 500 MCG TAB PO SCH (16:45)
[2021-07-18] MEDS: FOLIC ACID 1 MG TAB PO SCH (16:46)
[2021-07-18] MEDS: MELATONIN 3 MG TABLET PO PRN (20:20)
[2021-07-18] MEDS: PRAVASTATIN SODIUM 20 MG TAB PO SCH (20:20)
[2021-07-19] MEDS: metroNIDAZOLE-NS PMX 500 MG in SALINE 1 100ML.BAG IVPB SCH ×2 (02:26→09:32)
[2021-07-19 07:09] LABS: Glucose,Whole Blood 102 mg/dL (75-99)
[2021-07-19] MEDS: ACETAMINOPHEN TAB 325 MG TAB PO SCH ×2 (09:28→16:12)
[2021-07-19 09:30] LABS: Basophils % (A) 0 %; Eosinophils # (A) 0.5 k/uL (0-0.7); Eosinophils % (A) 5 %; HCT 28.8 % (34.0-46.0); HGB 8.5 gm/dL (11.4-16.0); Hypochromasia Marked; Lymphocytes # (A) 1.4 k/uL (1.0-4.8); Lymphocytes % (A) 12 %; MCH 29.8 pg (25.0-35.0); MCHC 29.6 g/dL (31.0-37.0); MCV 100.9 fL (80.0-100.0); Macrocytosis Slight; Mean Platelet Volume 8.1; Monocytes # (A) 0.5 k/uL (0-1.0); Monocytes % (A) 5 %; Neutrophils # (A) 8.8 k/uL (1.3-7.7); Neutrophils % (A) 77 %; Platelet Count 421 k/uL (150-450); RBC 2.86 m/uL (3.80-5.40); RDW 14.9 % (11.5-15.5); WBC 11.4 k/uL (3.8-10.6)
[2021-07-19] MEDS: METOPROLOL TARTRATE 50 MG TAB PO SCH ×2 (09:30→19:17)
[2021-07-19] MEDS: FAMOTIDINE 20 MG TAB PO SCH (09:30)
[2021-07-19] MEDS: amLODIPine 5 MG TAB PO SCH ×2 (09:30→19:17)
[2021-07-19] MEDS: MEMANTINE 10 MG TAB PO SCH ×2 (09:30→16:12)
[2021-07-19] MEDS: APIXABAN 5 MG TAB PO SCH ×2 (09:30→19:17)
[2021-07-19] MEDS: LOSARTAN 50 MG TAB PO SCH (09:30)
[2021-07-19] MEDS: DEXTROSE 4 GM CHEWABLE PO SCH ×3 (09:31→16:13)
[2021-07-19] MEDS: PIPERACILLIN-TAZOBACTAM 3.375 GM in SODIUM CHLORIDE 0.9% 100 ML IVPB SCH ×2 (09:32→16:12)
[2021-07-19] MEDS: DEXTROSE 5%-0.9% NACL 1,000 ML IV SCH ×2 (09:56→19:20)
[2021-07-19] MEDS ORDERED: FUROSEMIDE 10 MG/ML 2 ML VIAL IV ONE (09:57)
--- NOTE | 2021-07-19 10:00 | P.PN ---
Subjective This is a 70-year-old patient, follows with Dr. Sullivan at [facility] [place]. Chronic stable medical conditions include COPD, hypertension, hyperlipidemia, dementia. Patient herself is not able to give much of a history except for abdominal pain. As per the EMS report they will call doubt patient had been complaining of abdominal pain. No fever no chills no nausea vomiting was reported. Patient really cannot tell much. She is brought into the ER. Patient denies any fever and chills. Denies any urinary symptoms. Cannot tell me about her bowel pattern. July 13: ICU: Patient was taken to the OR yesterday by Dr. Valencia and had surgery for strangulate and internal hernia with small bowel obstruction. NG tube to suction in place. On room air. Has an abdominal dressing. Taylor catheter. Elevated shows sinus rhythm with PACs. Pain control. Given Catapres patch for blood pressure. Patient was noted to have bloody ascites. Suspect underlying perforation. Started IV Zosyn. July 14: Nothing by mouth. Laying in bed. IV Zosyn. IV fluids. Low-grade fever. Some abdominal pain. NG tube. July 15: Remains nothing by mouth. Abdominal pain. No BM. IV Zosyn. IV fluids. Does not have NG tube. July 16: Remains nothing by mouth. Decrease abdominal pain. No BM or flatus reported. Has bowel sounds. July 17: Seen by PT. Max assist. The was able to stand. Remains nothing by mouth. Atrial fibrillation rate controlled July 18: Sitting up that encounter. Started on clear liquids. Had a small BM. Abdominal pain control. Sinus rhythm Subjective: I am resuming the care of the patient today 07/19/2021 this is a pleasant 70 years old -[place] female with multiple medical problems presents with bowel obstruction requiring hernia repair for her sacculated to internal hernia and small bowel resection when exploratory laparotomy done on 07/12 it biopsy report reviewed showing ischemic enteritis with mucosal necrosis. Resection margins are unremarkable. Vitals stable. WBC 11.4, hemoglobin stable 8.5. She still on liquids 5 mg, D5 normal saline lower to 75 mL/h and also she is on IV Flagyl and IV Zosyn. We will discontinue Flagyl as Zosyn can cover unaerobes and to decrease the side effects Today she is lying in bed, angina her clear liquid breakfast. She feels hungry and ask for ice cream. She denies abdominal pain. She has bilateral Roberts leg edema. We lowered normal saline at 75 mL per hour and give 1 dose of IV Lasix Objective - Vital Signs Vital signs: Vital Signs Temp 98.3 F 07/19/21 06:41 Pulse 84 07/19/21 06:41 Resp 16 07/19/21 06:41 BP 154/82 07/19/21 06:41 Pulse Ox 97 07/19/21 06:41 Intake & Output 07/18/21 07/19/21 07/19/21 18:59 06:59 18:59 Output Total 510 1400 Balance -510 -1400 Output: Urine 510 1400 Other: Voiding Method Indwelling Catheter - Exam - GENERAL: The patient is alert and oriented x3, not in any acute distress. Morbidly obese HEENT: Pupils are round and equally reacting to light. EOMI. No scleral icterus. No conjunctival pallor. Normocephalic, atraumatic. No pharyngeal erythema. No thyromegaly. CARDIOVASCULAR: S1 and S2 present. No murmurs, rubs, or gallops. PULMONARY: Chest is clear to auscultation, no wheezing or crackles. ABDOMEN: Soft, nontender, nondistended, normoactive bowel sounds. No palpable organomegaly. MUSCULOSKELETAL: No joint swelling or deformity. -EXTREMITIES: No cyanosis, clubbing,. 1+ bilateral pitting leg edema. NEUROLOGICAL: Gross neurological examination did not reveal any focal deficits. SKIN: No rashes. no petechiae. - Labs CBC & Chem 7: 07/19/21 09:01 07/16/21 04:52 Labs: Abnormal Lab Results - Last 24 Hours (Table) 07/19/21 07/19/21 Range/Units 07:07 09:01 WBC 11.4 H (3.8-10.6) k/uL RBC 2.86 L (3.80-5.40) m/uL Hgb 8.5 L (11.4-16.0) gm/dL Hct 28.8 L (34.0-46.0) % MCV 100.9 H (80.0-100.0) fL MCHC 29.6 L (31.0-37.0) g/dL Neutrophils # 8.8 H (1.3-7.7) k/uL POC Glucose (mg/dL) 102 H (75-99) mg/dL Assessment and Plan Assessment: -Acute strangulated internal hernia with small bowel obstruction. Status post surgery by Dr. Valencia on July 12. Started on clear liquids -Suspected intra-abdominal infection Continue with IV Zosyn. IV Flagyl was discontinued - Ischemic bowel, status post surgical resection Improvement -Acute postprocedure blood loss anemia expected from surgery: IV Ferrlecit 2 doses. Follow H&H. -Major cognitive impairment likely from Alzheimer's dementia -Obesity BMI 39.5 -IV heparin monitoring: Discontinued Follow PTT -Primary osteoarthritis multiple joints bilaterally Voltaren gel 2 g topical 4 times a day, Tylenol 3 when necessary -Essential hypertension Lopressor 25 mg twice a day. Norvasc 5 mg twice a day -Hyperlipidemia Pravachol 20 mg daily at bedtime -Paroxysmal atrial fibrillation, currently in sinus rhythm Lopressor 25 mg twice a day
--- NOTE | 2021-07-19 14:55 | P.PN ---
Subjective Progress Note Date: 07/19/21 CHIEF COMPLAINT: Small bowel obstruction HISTORY OF PRESENT ILLNESS: Patient is postop day #7 status post exploratory laparotomy, small bowel resection and repair of incisional hernia for strangulated internal hernia with small bowel obstruction. Patient is lying in bed. She denies any abdominal pain. She did have a small bowel movement yesterday. She denies any nausea or vomiting. She did drink a little bit of her clear liquids. Patient did receive a dose of IV Lasix today. Afebrile WBC is down from 12.5-11.4 hemoglobin is 8.5 PHYSICAL EXAM: VITAL SIGNS: Reviewed. GENERAL: Well-developed in no acute distress. HEENT: No sclera icterus. Extraocular movements grossly intact. Moist buccal mucosa. Head is atraumatic, normocephalic. ABDOMEN: Soft. Nondistended. Nontender. Incision site with 4 christian. Small area of dehiscence at the upper part of the incision. Incision site clean and dry NEUROLOGIC: Patient is awake and alert with confusion ASSESSMENT: 1. Strangulated internal hernia with small bowel obstruction status post laparotomy, small bowel resection and repair of incisional hernia 2. Atrial fibrillation PLAN: -Continue clear liquid diet -Patient to return to [facility] after discharge -Encouraged patient to increase activity level -Incentive spirometer ordered -Continue supportive care -Continue pain medication as needed -DVT prophylaxis Tammie Physician Adoption Specialist note has been reviewed by physician. Signing provider agrees with the documented findings, assessment, and plan of care. Objective - Vital Signs Vital signs: Vital Signs Temp 98.9 F 07/19/21 14:12 Pulse 67 07/19/21 14:12 Resp 17 07/19/21 14:12 BP 111/68 07/19/21 14:12 Pulse Ox 94 L 07/19/21 14:12 Intake & Output 07/18/21 07/19/21 07/19/21 18:59 06:59 18:59 Output Total 510 1400 Balance -510 -1400 Output: Urine 510 1400 Other: Voiding Method Indwelling Catheter - Labs CBC & Chem 7: 07/19/21 09:01 07/16/21 04:52 Labs: Abnormal Lab Results - Last 24 Hours (Table) 07/19/21 07/19/21 Range/Units 07:07 09:01 WBC 11.4 H (3.8-10.6) k/uL RBC 2.86 L (3.80-5.40) m/uL Hgb 8.5 L (11.4-16.0) gm/dL Hct 28.8 L (34.0-46.0) % MCV 100.9 H (80.0-100.0) fL MCHC 29.6 L (31.0-37.0) g/dL Neutrophils # 8.8 H (1.3-7.7) k/uL POC Glucose (mg/dL) 102 H (75-99) mg/dL
[2021-07-19] MEDS: FOLIC ACID 1 MG TAB PO SCH (16:12)
[2021-07-19] MEDS: CYANOCOBALAMIN 500 MCG TAB PO SCH (16:13)
[2021-07-19] MEDS: PRAVASTATIN SODIUM 20 MG TAB PO SCH (19:17)
[2021-07-20] MEDS: DEXTROSE 4 GM CHEWABLE PO SCH ×5 (00:55→23:26)
[2021-07-20] MEDS: PIPERACILLIN-TAZOBACTAM 3.375 GM in SODIUM CHLORIDE 0.9% 100 ML IVPB SCH ×4 (00:56→23:26)
[2021-07-20] MEDS: DEXTROSE 5%-0.9% NACL 1,000 ML IV SCH (00:56)
[2021-07-20] MEDS: FAMOTIDINE 20 MG TAB PO SCH (07:36)
[2021-07-20] MEDS: LOSARTAN 50 MG TAB PO SCH (07:36)
[2021-07-20] MEDS: MEMANTINE 10 MG TAB PO SCH ×2 (07:36→17:12)
[2021-07-20] MEDS: amLODIPine 5 MG TAB PO SCH ×2 (07:36→19:17)
[2021-07-20] MEDS: METOPROLOL TARTRATE 50 MG TAB PO SCH ×2 (07:36→19:17)
[2021-07-20] MEDS: APIXABAN 5 MG TAB PO SCH ×2 (07:37→19:17)
[2021-07-20] MEDS: ACETAMINOPHEN TAB 325 MG TAB PO SCH ×2 (07:37→17:12)
[2021-07-20 09:37] LABS: Basophils # (A) 0.03 X 10*3/uL (0.00-0.10); Basophils % (A) 0.3 %; Eosinophils # (A) 0.54 X 10*3/uL (0.04-0.35); Eosinophils % (A) 5.5 %; HCT 25.4 % (37.2-46.3); HGB 7.8 g/dL (12.0-15.0); Immature Grans, Automated 1.7 %; Lymphocytes # (A) 1.42 X 10*3/uL (0.90-5.00); Lymphocytes % (A) 14.5 %; MCH 30.2 pg (27.0-32.0); MCHC 30.7 g/dL (32.0-37.0); MCV 98.4 fL (80.0-97.0); Mean Platelet Volume 10.4 fL (9.5-12.2); Monocytes # (A) 0.76 X 10*3/uL (0.20-1.00); Monocytes % (A) 7.8 %; NRBC Per 100 WBC 0 /100 WBCS (0.0-0.0); Neutrophils # (A) 6.88 X 10*3/uL (1.80-7.70); Neutrophils % (A) 70.2 %; Platelet Count 439 X 10*3/uL (140-440); RBC 2.58 X 10*6/uL (4.10-5.20); RDW 15.5 % (11.5-14.5)
[2021-07-20 10:43] LABS: Anion Gap 10.8 mmol/L (10.00-18.00); BUN/Creat Ratio 6.5 Ratio (12.00-20.00); Blood Urea Nitrogen 3.9 mg/dL (9.0-27.0); Carbon Dioxide 24.2 mmol/L (20.0-27.5); Magnesium 1.4 mg/dL (1.5-2.4); Non-African American GFR(CKD) 92.4 (60.0-200.0); Potassium 3.1 mmol/L (3.5-5.5)
[2021-07-20] MEDS ORDERED: Potassium Replacement Protocol 1 EACH MISC MISCELLANE PRN (11:39)
[2021-07-20] MEDS ORDERED: Magnesium Replacement Protocol 1 EACH MISC MISCELLANE PRN (11:39)
[2021-07-20] MEDS ORDERED: PANTOPRAZOLE 40 MG/10 ML VIAL IVP SCH (11:45)
--- NOTE | 2021-07-20 11:51 | P.PN ---
Subjective This is a 70-year-old patient, follows with Dr. Sullivan at [facility] [place]. Chronic stable medical conditions include COPD, hypertension, hyperlipidemia, dementia. Patient herself is not able to give much of a history except for abdominal pain. As per the EMS report they will call doubt patient had been complaining of abdominal pain. No fever no chills no nausea vomiting was reported. Patient really cannot tell much. She is brought into the ER. Patient denies any fever and chills. Denies any urinary symptoms. Cannot tell me about her bowel pattern. July 13: ICU: Patient was taken to the OR yesterday by Dr. Valencia and had surgery for strangulate and internal hernia with small bowel obstruction. NG tube to suction in place. On room air. Has an abdominal dressing. Taylor catheter. Elevated shows sinus rhythm with PACs. Pain control. Given Catapres patch for blood pressure. Patient was noted to have bloody ascites. Suspect underlying perforation. Started IV Zosyn. July 14: Nothing by mouth. Laying in bed. IV Zosyn. IV fluids. Low-grade fever. Some abdominal pain. NG tube. July 15: Remains nothing by mouth. Abdominal pain. No BM. IV Zosyn. IV fluids. Does not have NG tube. July 16: Remains nothing by mouth. Decrease abdominal pain. No BM or flatus reported. Has bowel sounds. July 17: Seen by PT. Max assist. The was able to stand. Remains nothing by mouth. Atrial fibrillation rate controlled July 18: Sitting up that encounter. Started on clear liquids. Had a small BM. Abdominal pain control. Sinus rhythm Subjective: I am resuming the care of the patient today 07/19/2021 this is a pleasant 70 years old -[place] female with multiple medical problems presents with bowel obstruction requiring hernia repair for her sacculated to internal hernia and small bowel resection when exploratory laparotomy done on 07/12 it biopsy report reviewed showing ischemic enteritis with mucosal necrosis. Resection margins are unremarkable. Vitals stable. WBC 11.4, hemoglobin stable 8.5. She still on liquids 5 mg, D5 normal saline lower to 75 mL/h and also she is on IV Flagyl and IV Zosyn. We will discontinue Flagyl as Zosyn can cover unaerobes and to decrease the side effects Today she is lying in bed, angina her clear liquid breakfast. She feels hungry and ask for ice cream. She denies abdominal pain. She has bilateral Roberts leg edema. We lowered normal saline at 75 mL per hour and give 1 dose of IV Lasix 07/20/2021 Patient awake and alert and tolerates diet. She was eating 5200% of her meals however she refused to take food this morning therefore we will keep monitoring. Also patient with forgetfulness. She denies abdominal pain in her abdomen looks soft. Leukocytosis improved and hemoglobin on the low side most likely secondary to surgical blood loss. We started her on ferrous sulfate. Also we'll change her Pepcid to Protonix while she is on a liquids. She's continued on Zosyn however her pro-calcitonin significantly worsened up to 15.8 therefore we will consult infectious disease team to guide in her antibiotic management. Her D5 normal saline was discontinued. Objective - Vital Signs Vital signs: Vital Signs Temp 98.8 F 07/20/21 07:40 Pulse 77 07/20/21 07:40 Resp 18 07/20/21 07:40 BP 122/64 07/20/21 07:40 Pulse Ox 95 07/20/21 07:40 Intake & Output 07/19/21 07/20/21 07/20/21 18:59 06:59 18:59 Output Total 1100 Balance -1100 Output: Urine 1100 Other: Voiding Method External Catheter # Voids 1 3 # Bowel Movements 1 - Exam - GENERAL: The patient is alert and oriented x3, not in any acute distress. Morbidly obese HEENT: Pupils are round and equally reacting to light. EOMI. No scleral icterus. No conjunctival pallor. Normocephalic, atraumatic. No pharyngeal erythema. No thyromegaly. CARDIOVASCULAR: S1 and S2 present. No murmurs, rubs, or gallops. PULMONARY: Chest is clear to auscultation, no wheezing or crackles. ABDOMEN: Soft, nontender, nondistended, normoactive bowel sounds. No palpable organomegaly. MUSCULOSKELETAL: No joint swelling or deformity. -EXTREMITIES: No cyanosis, clubbing,. 1+ bilateral pitting leg edema. NEUROLOGICAL: Gross neurological examination did not reveal any focal deficits. SKIN: No rashes. no petechiae. - Labs CBC & Chem 7: 07/20/21 05:44 07/20/21 05:44 Labs: Abnormal Lab Results - Last 24 Hours (Table) 07/20/21 Range/Units 05:44 RBC 2.58 L (4.10-5.20) X 10*6/uL Hgb 7.8 L (12.0-15.0) g/dL Hct 25.4 L (37.2-46.3) % MCV 98.4 H (80.0-97.0) fL MCHC 30.7 L (32.0-37.0) g/dL RDW 15.5 H (11.5-14.5) % Immature Gran # 0.17 H (0.00-0.04) X 10*3/uL Eosinophils # 0.54 H (0.04-0.35) X 10*3/uL Assessment and Plan Assessment: -Acute strangulated internal hernia with small bowel obstruction. Status post surgery by Dr. Valencia on July 12. Started on clear liquids. Advance diet as per surgery team -Suspected intra-abdominal infection Continue with IV Zosyn. IV Flagyl was discontinued. Consult infectious disease team -Paroxysmal atrial fibrillation, currently in sinus rhythm Lopressor 25 mg twice a day. Continue with Eliquis - Ischemic bowel, status post surgical resection Improvement -Acute postprocedure blood loss anemia expected from surgery: IV Ferrlecit 2 doses. Follow H&H. Add ferrous sulfate -Major cognitive impairment likely from Alzheimer's dementia -Obesity BMI 39.5 -Primary osteoarthritis multiple joints bilaterally Voltaren gel 2 g topical 4 times a day, Tylenol 3 when necessary -Essential hypertension Lopressor 25 mg twice a day. Norvasc 5 mg twice a day -Hyperlipidemia Pravachol 20 mg daily at bedtime
[2021-07-20] MEDS: FERROUS SULFATE 325 MG TAB PO SCH ×2 (13:01→17:12)
[2021-07-20] MEDS: POTASSIUM CHLORIDE ER 20 MEQ TAB.ER PO SCH ×2 (14:07→14:09)
[2021-07-20] MEDS: MAGNESIUM SULFATE-D5W PMX 1 GM in DEXTROSE/WATER 1 100ML.BAG IVPB SCH ×3 (14:07→21:54)
--- NOTE | 2021-07-20 14:49 | P.PN ---
Subjective Progress Note Date: 07/20/21 CHIEF COMPLAINT: Small bowel obstruction HISTORY OF PRESENT ILLNESS: Patient is postop day #8 status post exploratory laparotomy, small bowel resection and repair of incisional hernia for strangulated internal hernia with small bowel obstruction. Patient is lying in bed. Per nursing patient did have a bowel movement yesterday. Patient denies any abdominal pain. Denies any nausea vomiting. She is tolerating her clear liquids. Afebrile. WBC has normalized from 11.4-9.8 hemoglobin did drop to 7.8 platelets 439 sodium 143 potassium is 3.1 creatinine 0.6 magnesium 1.4 Patient seen and examined with Dr. washburn PHYSICAL EXAM: VITAL SIGNS: Reviewed. GENERAL: Well-developed in no acute distress. HEENT: No sclera icterus. Extraocular movements grossly intact. Moist buccal mucosa. Head is atraumatic, normocephalic. ABDOMEN: Soft. Nondistended. Nontender. Incision site with 4 christian. Small area of dehiscence at the upper part of the incision. Incision site clean and dry NEUROLOGIC: Patient is awake and alert with confusion ASSESSMENT: 1. Strangulated internal hernia with small bowel obstruction status post laparotomy, small bowel resection and repair of incisional hernia 2. Atrial fibrillation 3. Hypomagnesemia and hypokalemia PLAN: -Advance to full liquid diet Hep-Lock IV- -Magnesium and potassium are being replaced -Patient to return to [facility] after discharge -Anticipate possible discharge tomorrow -Encouraged patient to increase activity level -Incentive spirometer ordered -Continue supportive care -Continue pain medication as needed -DVT prophylaxis Tammie Physician Research Project Manager note has been reviewed by physician. Signing provider agrees with the documented findings, assessment, and plan of care. Objective - Vital Signs Vital signs: Vital Signs Temp 97.8 F 07/20/21 13:58 Pulse 68 07/20/21 13:58 Resp 18 07/20/21 13:58 BP 120/74 07/20/21 13:58 Pulse Ox 100 07/20/21 13:58 Intake & Output 07/19/21 07/20/21 07/20/21 18:59 06:59 18:59 Output Total 1100 1200 Balance -1100 -1200 Weight 120.8 kg Output: Urine 1100 1200 Other: Voiding Method External Catheter # Voids 1 3 # Bowel Movements 1 - Labs CBC & Chem 7: 07/20/21 05:44 07/20/21 05:44 Labs: Abnormal Lab Results - Last 24 Hours (Table) 07/20/21 07/20/21 07/20/21 Range/Units 05:44 05:44 05:44 RBC 2.58 L (4.10-5.20) X 10*6/uL Hgb 7.8 L (12.0-15.0) g/dL Hct 25.4 L (37.2-46.3) % MCV 98.4 H (80.0-97.0) fL MCHC 30.7 L (32.0-37.0) g/dL RDW 15.5 H (11.5-14.5) % Immature Gran # 0.17 H (0.00-0.04) X 10*3/uL Eosinophils # 0.54 H (0.04-0.35) X 10*3/uL Potassium 3.1 L (3.5-5.5) mmol/L BUN 3.9 L (9.0-27.0) mg/dL BUN/Creatinine Ratio 6.50 L (12.00-20.00) Ratio Calcium 8.0 L (8.7-10.3) mg/dL Magnesium 1.4 L (1.5-2.4) mg/dL Procalcitonin 15.80 H (0.02-0.09) ng/mL
[2021-07-20] MEDS: CYANOCOBALAMIN 500 MCG TAB PO SCH (17:12)
[2021-07-20] MEDS: FOLIC ACID 1 MG TAB PO SCH (17:12)
[2021-07-20] MEDS: PRAVASTATIN SODIUM 20 MG TAB PO SCH (19:17)
--- NOTE | 2021-07-21 00:13 | P.CONS ---
History of Present Illness - Reason for Consult Consult date: 07/20/21 Antibiotic management Requesting physician: Juan Jose E Sheet - Chief Complaint Abdominal pain x few days - History of Present Illness Patient is a 70-year-old -[place] female who presented to the ER about 10 days ago on 07/12/2021 complaining of abdominal pain patient did have a CT of abdominal pelvis which did shows persistent focal irritation of small bowel loops in the lower abdominal patient was evaluated by general surgery and the patient did have a exploratory laparotomy noticed to have strangulated internal hernia with a small bowel obstruction status post small bowel resection and repair of incisional hernia no mention of any perforation patient did not have any culture done during this admission, patient did have a low-grade fever on 07/14/2019 to 07/14/2021 as well as 07/16/2021 however no fever since then patient did have elevated white count on admission however those has normalized as of today's however the patient did have a procalcitonin drawn which was 15.80 that has prompted this infectious disease consultation patient is currently being t reated with Zosyn since 13 July 2021, patient currently denies having any headache or URI symptoms denies having any chest pain shortness of breath or cough and is currently satting 100% on room air she did have some dull aching abdominal pain admitted abdominal pain overall is improving patient did have slight dehiscence of the upper end of incision but no purulent drainage denies any nausea or vomiting and no diarrhea Review of Systems Positive point has been mentioned in the HPI rest of the systems are negative Past Medical History Past Medical History: COPD, Hyperlipidemia, Hypertension Additional Past Medical History / Comment(s): Diverticular disease, constipation, chronic anemia, PVD/venous insufficiency, lower extremity edema/discoloration, arthritis in multiple joints, gout. History of Any Multi-Drug Resistant Organisms: None Reported Past Surgical History: Hysterectomy Additional Past Surgical History / Comment(s): Bilateral breast reductions, colonoscopy. Past Anesthesia/Blood Transfusion Reactions: No Reported Reaction Past Psychological History: No Psychological Hx Reported Smoking Status: Former smoker Past Alcohol Use History: None Reported Past Drug Use History: None Reported - Past Family History Mother History Unknown: Yes Additional Family Medical History / Comment(s): Pt was adopted. Father History Unknown: Yes Additional Family Medical History / Comment(s): Pt was adopted. Medications and Allergies Home Medications Medication Instructions Recorded Confirmed Type Acetaminophen Tab [Tylenol] 650 mg PO BID@0800,1700 07/12/21 07/12/21 History Acetaminophen [Tylenol 8 Hour] 650 mg PO Q4H PRN 07/12/21 07/12/21 History Acetaminophen-Codeine 300-30mg 1 tab PO Q12H PRN 07/12/21 07/12/21 History [Tylenol w/codeine #3] Aspirin 325 mg PO DAILY@169907/12/21 07/12/21 History Cyanocobalamin [Vitamin B-12] 500 mcg PO DAILY@169907/12/21 07/12/21 History Diclofenac Sodium Gel [Voltaren 2 gm TOPICAL QID 07/12/21 07/12/21 History Gel] Ergocalciferol [Vitamin D2 (1250 1,250 mcg PO CHICAS@169907/12/21 07/12/21 History Mcg = 99057 Iu)] Folic Acid 1 mg PO DAILY@169907/12/21 07/12/21 History Furosemide [Lasix] 60 mg PO DAILY@169907/12/21 07/12/21 History Magnesium Hydroxide [Milk of 7,200 mg PO DAILY PRN 07/12/21 07/12/21 History Magnesia Concentrate] Memantine [Namenda] 10 mg PO BID@0800,169907/12/21 07/12/21 History Metoprolol Tartrate [Lopressor] 25 mg PO BID@0800,1700 07/12/21 07/12/21 History Na Phos,M-B/Na Phos,Di-Ba [Fleet 133 ml RECTAL DAILY PRN 07/12/21 07/12/21 History Adult] Potassium Chloride [Klor-Con 10 ER] 10 meq PO DAILY@0800 07/12/21 07/12/21 History Pravastatin Sodium [Pravachol] 20 mg PO HS@2100 07/12/21 07/12/21 History Ubidecarenone [Co Q-10] 100 mg PO DAILY@169907/12/21 07/12/21 History bisacodyL [Dulcolax] 10 mg RECTAL DAILY PRN 07/12/21 07/12/21 History Allergies Allergy/AdvReac Type Severity Reaction Status Date / Time doxycycline [From Vibramycin] Allergy Unknown Verified 07/12/21 06:25 niacin Allergy Unknown Verified 07/12/21 06:25 simvastatin [From Zocor] Allergy Unknown Verified 07/12/21 06:25 Physical Exam Vitals: Vital Signs Temp Pulse Resp BP Pulse Ox 07/20/21 13:58 97.8 F 68 18 120/74 100 07/20/21 07:40 98.8 F 77 18 122/64 95 07/20/21 07:37 77 18 07/20/21 01:39 98.2 F 71 17 130/70 95 07/19/21 20:00 98.3 F 69 18 146/83 100 Intake and Output 07/19/21 07/20/21 07/20/21 22:59 06:59 14:59 Output Total 1100 1200 Balance -1100 -1200 Output: Urine 1100 1200 Other: Voiding Method External Catheter # Voids 1 3 # Bowel Movements 1 Weight 120.8 kg GENERAL DESCRIPTION: An elderly female lying in bed, no distress. No tachypnea or accessory muscle of respiration use. HEENT: Shows Pallor , no scleral icterus. Oral mucous membrane is dry. No pharyngeal erythema or thrush NECK: Trachea central, no thyromegaly. LUNGS: Unlabored breathing. Decreased present at the base. No wheeze or crackle. HEART: S1, S2, regular rate and rhythm. No loud murmur ABDOMEN: Soft, midline incision small opening at the upper end otherwise cristal were intact no redness no drainage EXTREMITIES: No edema of feet. SKIN: No rash, no masses palpable. NEUROLOGICAL: The patient is awake, alert, oriented x3, mood and affect normal. Results CBC & Chem 7: 07/20/21 05:44 07/20/21 05:44 Labs: Abnormal Lab Results - Last 24 Hours (Table) 07/20/21 07/20/21 07/20/21 Range/Units 05:44 05:44 05:44 RBC 2.58 L (4.10-5.20) X 10*6/uL Hgb 7.8 L (12.0-15.0) g/dL Hct 25.4 L (37.2-46.3) % MCV 98.4 H (80.0-97.0) fL MCHC 30.7 L (32.0-37.0) g/dL RDW 15.5 H (11.5-14.5) % Immature Gran # 0.17 H (0.00-0.04) X 10*3/uL Eosinophils # 0.54 H (0.04-0.35) X 10*3/uL Potassium 3.1 L (3.5-5.5) mmol/L BUN 3.9 L (9.0-27.0) mg/dL BUN/Creatinine Ratio 6.50 L (12.00-20.00) Ratio Calcium 8.0 L (8.7-10.3) mg/dL Magnesium 1.4 L (1.5-2.4) mg/dL Procalcitonin 15.80 H (0.02-0.09) ng/mL Assessment and Plan (1) Elevated procalcitonin Current Visit: Yes Status: Acute Code(s): R79.89 - OTHER SPECIFIED ABNORMAL FINDINGS OF BLOOD CHEMISTRY SNOMED Code(s): 373330159 Plan: 1patient presented to hospital with abdominal pain and has been diagnosed with strangulated hernia s/p small bowel resection and repair of the incisional hernia in this patient seem to have shown overall clinical improvement as the patient is afebrile and white count has normalized she did have elevated procalcitonin which is more specific for bacterial pneumonia however the patient currently do not have any respiratory symptoms and is satting 100% on room air. 2continue the patient on Zosyn 3.375 g every 8 hours however if the patient continues to improve and oral intake improves to switch her to oral antibiotic on discharge. We will follow on clinical condition and cultures to further adjust medication if needed Thank you for this consultation will follow this patient along with you Time with Patient: Greater than 30
[2021-07-21] MEDS: amLODIPine 5 MG TAB PO SCH (07:21)
[2021-07-21] MEDS: METOPROLOL TARTRATE 50 MG TAB PO SCH (07:21)
[2021-07-21] MEDS: APIXABAN 5 MG TAB PO SCH (07:21)
[2021-07-21] MEDS: MEMANTINE 10 MG TAB PO SCH (07:21)
[2021-07-21] MEDS: FERROUS SULFATE 325 MG TAB PO SCH (07:22)
[2021-07-21] MEDS: ACETAMINOPHEN TAB 325 MG TAB PO SCH (07:22)
[2021-07-21] MEDS: LOSARTAN 50 MG TAB PO SCH (07:22)
[2021-07-21] MEDS: DEXTROSE 4 GM CHEWABLE PO SCH ×2 (07:22→12:21)
[2021-07-21] MEDS: PIPERACILLIN-TAZOBACTAM 3.375 GM in SODIUM CHLORIDE 0.9% 100 ML IVPB SCH ×2 (07:23→15:50)
[2021-07-21 09:17] LABS: Basophils # (A) 0.04 X 10*3/uL (0.00-0.10); Basophils % (A) 0.4 %; Eosinophils % (A) 4.8 %; HCT 23.6 % (37.2-46.3); HGB 7.2 g/dL (12.0-15.0); Immature Grans, Automated 1.1 %; Lymphocytes # (A) 1.62 X 10*3/uL (0.90-5.00); Lymphocytes % (A) 15.5 %; MCH 29.8 pg (27.0-32.0); MCHC 30.5 g/dL (32.0-37.0); MCV 97.5 fL (80.0-97.0); Mean Platelet Volume 10.1 fL (9.5-12.2); Monocytes # (A) 0.76 X 10*3/uL (0.20-1.00); Monocytes % (A) 7.3 %; NRBC Per 100 WBC 0 /100 WBCS (0.0-0.0); Neutrophils # (A) 7.43 X 10*3/uL (1.80-7.70); Neutrophils % (A) 70.9 %; Platelet Count 426 X 10*3/uL (140-440); RBC 2.42 X 10*6/uL (4.10-5.20); RDW 15.7 % (11.5-14.5); WBC 10.47 X 10*3/uL (4.50-10.00)
[2021-07-21 09:35] LABS: African American GFR (CKD) 101.7 (60.0-200.0); Anion Gap 8.2 mmol/L (10.00-18.00); BUN/Creat Ratio 6.57 Ratio (12.00-20.00); Blood Urea Nitrogen 4.6 mg/dL (9.0-27.0); Carbon Dioxide 24.8 mmol/L (20.0-27.5); Non-African American GFR(CKD) 87.8 (60.0-200.0); Potassium 3.5 mmol/L (3.5-5.5)
[2021-07-21 09:51] LABS: Magnesium 2.2 mg/dL (1.5-2.4)
[2021-07-21 10:25] LABS: Glucose,Whole Blood 140 mg/dL (75-99)
[2021-07-21] MEDS ORDERED: POTASSIUM CHLORIDE ER 20 MEQ TAB.ER PO STA (11:58)
--- NOTE | 2021-07-21 12:08 | P.PN ---
Subjective Progress Note Date: 07/21/21 CHIEF COMPLAINT: Small bowel obstruction HISTORY OF PRESENT ILLNESS: Patient is postop day #9 status post exploratory laparotomy, small bowel resection and repair of incisional hernia for strangulated internal hernia with small bowel obstruction. Patient is lying in bed. Patient has been having bowel movements. She is tolerating full liquid diet. She denies any nausea or vomiting. She denies any abdominal pain at this time. She is afebrile. WBC 10.47 hemoglobin 7.2 platelets 426 sodium 141 pot assium 3.5 creatinine 0.7 magnesium 2.2 Patient seen and examined with Dr. washburn PHYSICAL EXAM: VITAL SIGNS: Reviewed. GENERAL: Well-developed in no acute distress. HEENT: No sclera icterus. Extraocular movements grossly intact. Moist buccal mucosa. Head is atraumatic, normocephalic. ABDOMEN: Soft. Nondistended. Nontender. Incision site with 4 christian. Incision site clean, dry and intact NEUROLOGIC: Patient is awake and alert with confusion ASSESSMENT: 1. Strangulated internal hernia with small bowel obstruction status post laparotomy, small bowel resection and repair of incisional hernia 2. Atrial fibrillation 3. Hypomagnesemia and hypokalemia PLAN: -Patient can be discharged from surgical standpoint when medically cleared -Advance to carb consistent -Replace potassium -Continue local wound care -Antibiotics per ID service -Patient to return to [facility] after discharge -Encouraged patient to increase activity level -Incentive spirometer ordered -Continue supportive care -Continue pain medication as needed -DVT prophylaxis Tammie Physician [facility] Interpreter note has been reviewed by physician. Signing provider agrees with the documented findings, assessment, and plan of care. Objective - Vital Signs Vital signs: Vital Signs Temp 98.5 F 07/21/21 08:00 Pulse 66 07/21/21 08:00 Resp 16 07/21/21 08:00 BP 124/70 07/21/21 08:00 Pulse Ox 99 07/21/21 08:00 Intake & Output 07/20/21 07/21/21 07/21/21 18:59 06:59 18:59 Intake Total 800 Output Total 1700 Balance -900 Weight 120.8 kg Intake: Oral 800 Output: Urine 1700 Other: Voiding Method External Catheter External Catheter # Bowel Movements 1 - Labs CBC & Chem 7: 07/21/21 05:44 07/21/21 05:44 Labs: Abnormal Lab Results - Last 24 Hours (Table) 07/21/21 07/21/21 07/21/21 Range/Units 05:44 05:44 05:44 WBC 10.47 H (4.50-10.00) X 10*3/uL RBC 2.42 L (4.10-5.20) X 10*6/uL Hgb 7.2 L (12.0-15.0) g/dL Hct 23.6 L (37.2-46.3) % MCV 97.5 H (80.0-97.0) fL MCHC 30.5 L (32.0-37.0) g/dL RDW 15.7 H (11.5-14.5) % Immature Gran # 0.12 H (0.00-0.04) X 10*3/uL Eosinophils # 0.50 H (0.04-0.35) X 10*3/uL Anion Gap 8.20 L (10.00-18.00) mmol/L BUN 4.6 L (9.0-27.0) mg/dL BUN/Creatinine Ratio 6.57 L (12.00-20.00) Ratio POC Glucose (mg/dL) (75-99) mg/dL Calcium 8.0 L (8.7-10.3) mg/dL Procalcitonin 7.44 H (0.02-0.09) ng/mL 07/21/21 Range/Units 10:23 WBC (4.50-10.00) X 10*3/uL RBC (4.10-5.20) X 10*6/uL Hgb (12.0-15.0) g/dL Hct (37.2-46.3) % MCV (80.0-97.0) fL MCHC (32.0-37.0) g/dL RDW (11.5-14.5) % Immature Gran # (0.00-0.04) X 10*3/uL Eosinophils # (0.04-0.35) X 10*3/uL Anion Gap (10.00-18.00) mmol/L BUN (9.0-27.0) mg/dL BUN/Creatinine Ratio (12.00-20.00) Ratio POC Glucose (mg/dL) 140 H (75-99) mg/dL Calcium (8.7-10.3) mg/dL Procalcitonin (0.02-0.09) ng/mL
--- NOTE | 2021-07-21 13:25 | P.DS ---
Providers Date of admission: 07/12/21 06:13 Attending physician: Soren Kruse Consults: 07/12/21 06:15 Consult Physician Routine Consulting Provider: Calvin Torres Consult Reason/Comments: New onset atrial fibrillation Do you want consulting provider notified?: Yes Consult Physician Routine Consulting Provider: Domenico Valencia Consult Reason/Comments: abdominal pain Do you want consulting provider notified?: Yes 07/12/21 20:50 Consult Physician Routine Consulting Provider: Oc Hollis Consult Reason/Comments: Intensive care and medical management Do you want consulting provider notified?: Yes 07/20/21 11:45 Consult Physician Urgent Consulting Provider: Jimmy Blount Consult Reason/Comments: antibiotic management Do you want consulting provider notified?: Yes Primary care physician: Vikram Sullivan [facility] Course: Diagnoses: Acute sound related to internal hernia with small bowel obstruction, status post exploratory laparotomy and small bowel resection with hernia repair on 07/14 Ischemic bowel, secondary to above. Status post bowel resection. Pathology showing bowel ischemia Intra-abdominal infection Paroxysmal atrial fibrillation, currently rate-controlled and patient is on a Eliquis Acute procedure blood loss anemia may expected, hemoglobin stable. Major cognitive impairment, likely from Alzheimer dementia obesity BMI 39.5 Primary osteoarthritis multiple joints bilaterally Hyperlipidemia Hospital course: This is a 70-year-old patient, follows with Dr. Sullivan at [facility]. Chronic stable medical conditions include COPD, hypertension, hyperlipidemia, dementia. Patient presents with abdominal pain, found to have some dilated hernia she underwent expiratory left colectomy and bowel resection with hernia repair with Dr. Farris on 07/14. Postoperatively doing well, today she is sitting in chair, fully awake and oriented, tolerates diet well, no abdominal pain, she has bowel movement and she is cleared for surgery by discharge back to [facility] where she came in from. Also she has evidence of intra-abdominal infection, pro-calcitonin is improving while she is on Zosyn, I discussed the case with our infectious disease and when going to discharge the patient on Augmentin for short oral cause with close outpatient follow-up. Other that she denies any other symptoms, no chest pain or dyspnea. No urine complaints. No fever. Patient agrees she can go to [facility] today. Problems and management plan were discussed with the patient and he verbalized understanding and acceptance Patient was found stable and can be discharged home however he needs follow-up as an outpatient. Patient was instructed to follow up with PCP Dr. Sullivan within one week and patient agrees Patient was instructed to follow up with Dr. Carisa phelps in one week and she agree s Physical exam Gen: patient is a AAOx3, no distress CVS: S1-S2, RRR, no murmur Lungs: B/L CTA, no wheezing Abdomen: soft, no distention, no tenderness, positive bowel sounds Extremity: no leg edema or induration Time spent more than 35 minutes Plan - Discharge Summary Discharge Rx Participant: No New Discharge Prescriptions: No Action Memantine [Namenda] 10 mg PO BID@0800,1700 Potassium Chloride [Klor-Con 10 ER] 10 meq PO DAILY@0800 Ubidecarenone [Co Q-10] 100 mg PO DAILY@1700 Ergocalciferol [Vitamin D2 (1250 Mcg = 38836 Iu)] 1,250 mcg PO CHICAS@1700 Aspirin 325 mg PO DAILY@1700 Diclofenac Sodium Gel [Voltaren Gel] 2 gm TOPICAL QID bisacodyL [Dulcolax] 10 mg RECTAL DAILY PRN PRN Reason: Constipation Acetaminophen-Codeine 300-30mg [Tylenol w/codeine #3] 1 tab PO Q12H PRN PRN Reason: Pain Acetaminophen [Tylenol 8 Hour] 650 mg PO Q4H PRN PRN Reason: GENERAL DISCOMFORT Na Phos,M-B/Na Phos,Di-Ba [Fleet Adult] 133 ml RECTAL DAILY PRN PRN Reason: Constipation Magnesium Hydroxide [Milk of Magnesia Concentrate] 7,200 mg PO DAILY PRN PRN Reason: Constipation Metoprolol Tartrate [Lopressor] 25 mg PO BID@0800,1700 Acetaminophen Tab [Tylenol] 650 mg PO BID@0800,1700 Cyanocobalamin [Vitamin B-12] 500 mcg PO DAILY@1700 Pravastatin Sodium [Pravachol] 20 mg PO HS@2100 Furosemide [Lasix] 60 mg PO DAILY@1700 Folic Acid 1 mg PO DAILY@1700 Discharge Medication List Acetaminophen Tab [Tylenol] 650 mg PO BID@0800,1700 07/12/21 [History] Acetaminophen [Tylenol 8 Hour] 650 mg PO Q4H PRN 07/12/21 [History] Acetaminophen-Codeine 300-30mg [Tylenol w/codeine #3] 1 tab PO Q12H PRN 07/12/21 [History] Aspirin 325 mg PO DAILY@169907/12/21 [History] Cyanocobalamin [Vitamin B-12] 500 mcg PO DAILY@169907/12/21 [History] Diclofenac Sodium Gel [Voltaren Gel] 2 gm TOPICAL QID 07/12/21 [History] Ergocalciferol [Vitamin D2 (1250 Mcg = 59636 Iu)] 1,250 mcg PO CHICAS@169907/12/21 [History] Folic Acid 1 mg PO DAILY@169907/12/21 [History] Furosemide [Lasix] 60 mg PO DAILY@169907/12/21 [History] Magnesium Hydroxide [Milk of Magnesia Concentrate] 7,200 mg PO DAILY PRN 07/12/21 [History] Memantine [Namenda] 10 mg PO BID@0800,169907/12/21 [History] Metoprolol Tartrate [Lopressor] 25 mg PO BID@0800,169907/12/21 [History] Na Phos,M-B/Na Phos,Di-Ba [Fleet Adult] 133 ml RECTAL DAILY PRN 07/12/21 [History] Potassium Chloride [Klor-Con 10 ER] 10 meq PO DAILY@0800 07/12/21 [History] Pravastatin Sodium [Pravachol] 20 mg PO HS@2100 07/12/21 [History] Ubidecarenone [Co Q-10] 100 mg PO DAILY@169907/12/21 [History] bisacodyL [Dulcolax] 10 mg RECTAL DAILY PRN 07/12/21 [History] Follow up Appointment(s)/Referral(s): Funmilayo Kim MD [STAFF PHYSICIAN] - 2 Weeks Vikram Sullivan DO [Primary Care Provider] - 1-2 days Jeannette Mast [NON-STAFF] - As Needed Domenico Valencia MD [STAFF PHYSICIAN] - 1 Week Activity/Diet/Wound Care/Special Instructions: No lifting over 10 pounds Shower daily. No soaking or tub baths for 2 weeks Very light activity until you are reevaluated at your follow up appointment with your surgeon
[2021-07-21 14:53] VITALS: BP 103/54; PULSE 52; RESP 18; TEMP 98.2
--- NOTE | 2021-07-21 21:46 | P.PN ---
Subjective Progress Note Date: 07/21/21 Principal diagnosis: Abdominal infection Patient is a 70-year-old female presented to the hospital with abdominal pain secondary to small bowel obstruction from strangulated internal hernia, status post laparotomy release of hernia and small bowel resection. On today's evaluation that is 07/21/2021, the patient denies having any fever or any chills she is breathing comfortably on room air denies having any chest pain or cough abdominal pain is currently controlled his been tolerating her diet and no diarrhea Objective - Vital Signs Vital signs: Vital Signs Temp 98.5 F 07/21/21 08:00 Pulse 66 07/21/21 08:00 Resp 16 07/21/21 08:00 BP 124/70 07/21/21 08:00 Pulse Ox 99 07/21/21 08:00 Intake & Output 07/20/21 07/21/21 07/21/21 18:59 06:59 18:59 Intake Total 800 Output Total 1700 Balance -900 Weight 120.8 kg Intake: Oral 800 Output: Urine 1700 Other: Voiding Method External Catheter External Catheter # Bowel Movements 1 - Exam GENERAL DESCRIPTION: An elderly female lying in bed in no distress RESPIRATORY SYSTEM: Unlabored breathing , decreased breath sounds at bases HEART: S1 S2 regular rate and rhythm , ABDOMEN: Soft , no tenderness EXTREMITIES: No edema feet - Labs CBC & Chem 7: 07/21/21 05:44 07/21/21 05:44 Labs: Abnormal Lab Results - Last 24 Hours (Table) 07/21/21 07/21/21 07/21/21 Range/Units 05:44 05:44 05:44 WBC 10.47 H (4.50-10.00) X 10*3/uL RBC 2.42 L (4.10-5.20) X 10*6/uL Hgb 7.2 L (12.0-15.0) g/dL Hct 23.6 L (37.2-46.3) % MCV 97.5 H (80.0-97.0) fL MCHC 30.5 L (32.0-37.0) g/dL RDW 15.7 H (11.5-14.5) % Immature Gran # 0.12 H (0.00-0.04) X 10*3/uL Eosinophils # 0.50 H (0.04-0.35) X 10*3/uL Anion Gap 8.20 L (10.00-18.00) mmol/L BUN 4.6 L (9.0-27.0) mg/dL BUN/Creatinine Ratio 6.57 L (12.00-20.00) Ratio POC Glucose (mg/dL) (75-99) mg/dL Calcium 8.0 L (8.7-10.3) mg/dL Procalcitonin 7.44 H (0.02-0.09) ng/mL 07/21/21 Range/Units 10:23 WBC (4.50-10.00) X 10*3/uL RBC (4.10-5.20) X 10*6/uL Hgb (12.0-15.0) g/dL Hct (37.2-46.3) % MCV (80.0-97.0) fL MCHC (32.0-37.0) g/dL RDW (11.5-14.5) % Immature Gran # (0.00-0.04) X 10*3/uL Eosinophils # (0.04-0.35) X 10*3/uL Anion Gap (10.00-18.00) mmol/L BUN (9.0-27.0) mg/dL BUN/Creatinine Ratio (12.00-20.00) Ratio POC Glucose (mg/dL) 140 H (75-99) mg/dL Calcium (8.7-10.3) mg/dL Procalcitonin (0.02-0.09) ng/mL Assessment and Plan (1) Elevated procalcitonin Status: Acute Code(s): R79.89 - OTHER SPECIFIED ABNORMAL FINDINGS OF BLOOD CHEMISTRY SNOMED Code(s): 680684167 Plan: 1patient presented to hospital with abdominal pain and has been diagnosed with strangulated hernia s/p small bowel resection and repair of the incisional hernia in this patient seem to have shown overall clinical improvement as the patient is afebrile and white count has normalized she did have elevated procalcitonin which is more specific for bacterial pneumonia however the patient currently do not have any respiratory symptoms and is satting 100% on room air. 2patient has shown clinical improvement with Zosyn 3.375 g every 8 hours and has received more than 10 days of IV antibiotic therapy with no fever white count normal may consider short course of oral Augmentin on discharge discussed with the admitting physician Time with Patient: Less than 30
== END 2021-07-21 16:46 | DRG 329 ==
LOC: EC 01:32 → 3SCARD 06:13 → 2SICU 20:31 → 4SSUR 07-13 14:12
PROVIDERS: ADMIT Hospitalist; ATTEND Hospitalist
PROC: 0DN80ZZ Release Small Intestine, Open Approach (ICD-10-PCS; 2021-07-12)
PROC: 0WQF0ZZ Repair Abdominal Wall, Open Approach (ICD-10-PCS; 2021-07-12)
PROC: 0DB80ZZ Excision of Small Intestine, Open Approach (ICD-10-PCS; principal; 2021-07-12 11:15)
PROC: 05HF33Z Insertion of Infusion Device into Left Cephalic Vein, Percutaneous Approach (ICD-10-PCS; 2021-07-14)
DX: K43.0 Incisional hernia with obstruction, without gangrene (principal); K65.8 Other peritonitis; E87.2 Acidosis; I48.19 Other persistent atrial fibrillation; K55.9 Vascular disorder of intestine, unspecified; K56.7 Ileus, unspecified; R18.8 Other ascites; D62 Acute posthemorrhagic anemia; D72.829 Elevated white blood cell count, unspecified; E16.2 Hypoglycemia, unspecified; E66.9 Obesity, unspecified; Z68.39 Body mass index [BMI] 39.0-39.9, adult; E78.5 Hyperlipidemia, unspecified; E83.42 Hypomagnesemia; E87.6 Hypokalemia; F02.80 Dementia in other diseases classified elsewhere, unspecified severity, without behavioral disturbance, psychotic disturbance, mood disturbance, and anxiety; G30.9 Alzheimer's disease, unspecified; Z20.822 Contact with and (suspected) exposure to COVID-19; F41.9 Anxiety disorder, unspecified; G47.00 Insomnia, unspecified; I10 Essential (primary) hypertension; I16.0 Hypertensive urgency; J44.9 Chronic obstructive pulmonary disease, unspecified; M19.91 Primary osteoarthritis, unspecified site; Z79.82 Long term (current) use of aspirin; Z79.899 Other long term (current) drug therapy; Z87.891 Personal history of nicotine dependence; Z90.710 Acquired absence of both cervix and uterus
CPT/HCPCS: 36410; 36415; 71275; 74019; 74022; 74174; 74176; 76937; 80048; 80053; 81001; 82150; 83605; 83690; 83735; 84145; 84484; 85025; 85027; 85610; 85730; 87635; 88307; 93005; 93306; 96361; 96365; 96366; 96375; 96376; 99285